=== PATIENT | male | born 1975 | race Caucasian/White ===

== ENCOUNTER 2017-09-11 17:41 | Emergency (ER) | payer OTHER ==
[2017-09-11 17:56] VITALS: TEMP 98.9; BMI 26.4
--- NOTE | 2017-09-11 18:10 | PDOC ---
History of Present Illness - General Chief Complaint: Pain, Acute Stated Complaint: PAIN, ACUTE History Source: Patient Exam Limitations: No Limitations - History of Present Illness Initial Comments: 09/11/17 18:27 HPI: This 42-year-old male presents to the emergency room with complaints of bilateral back pain. He states that he's having these similar feelings of when he had a kidney stone about a month ago in the [place]. About a month ago he had had bloody urine and went to one of the hospitals in the [place] where he was found to have a kidney stone which he passed on his own. He was taking Flomax for a while. He did not follow-up with the urologist. He did not require any surgical intervention. He denies any fever. He does state that he does have some sinusitis and an upper respiratory infection the last 2 days. Denies any nausea, vomiting, abdominal pain, dysuria. Chief Compliant: Lower back pain PMH: Kidney stone passed on her own about one month ago, asthma, seizure related to EtOH use, bipolar FH: Pt has not recently traveled outside the country in the last 30 days. Pt has not been in contact with people who have traveled out of the country, in contact with people who have been ill with fever, n, v, d. SH: smoking use: Positive current every day smoker illicit drug use: Reformed from cocaine, marijuana, opiates, heroin in 2013 alcohol use: Deformed from daily abuse of alcohol in 2013 employment/educational status: sexual history: PSH: Tonsillectomy when a child Home med use noted on AUG Allergies: NKA Immunizations: PCP: Does not have one Past History - Past Medical History Allergies/Adverse Reactions: Allergies Allergy/AdvReac Type Severity Reaction Status Date / Time No Known Allergies Allergy Verified 09/11/17 17:52 Home Medications: Ambulatory Orders Albuterol Sulfate Inhaler - [Ventolin HFA Inhaler -] 2 inh PO Q6H PRN 12/29/13 Quetiapine Fumarate [Seroquel -] 200 mg PO BID 12/29/13 Zolpidem Tartrate [Ambien -] 10 mg PO HS 12/29/13 Quetiapine Fumarate [Seroquel -] 200 mg PO BID #60 tablet 12/30/13 Zolpidem Tartrate [Ambien] 10 mg PO HS PRN #30 tablet 12/30/13 Anemia: No Asthma: Yes (albuterol) Cancer: No Cardiac Disorders: No CVA: No COPD: No CHF: No Dementia: No Diabetes: No GI Disorders: No Disorders: No HTN: No Hypercholesterolemia: No Kidney Stones: Yes Liver Disease: No Seizures: Yes (approx 1yr ago alcohol related seizure) Thyroid Disease: No - Surgical History Abdominal Surgery: No Appendectomy: No Cardiac Surgery: No Cholecystectomy: No Lung Surgery: No Neurologic Surgery: No Orthopedic Surgery: No - Reproductive History Testicular Surgery: No - Suicide/Smoking/Psychosocial Hx Smoking Status: Yes Smoking History: Current every day smoker Have you smoked in the past 12 months: Yes Number of Cigarettes Smoked Daily: 15 Cigars Per Day: 0 Information on smoking cessation initiated: No 'Breaking Loose' booklet given: 12/29/13 Hx Alcohol Use: Yes (ashlee) Drug/Substance Use Hx: Yes (cocaine/heroin) Substance Use Type: Alcohol, Cocaine, Heroin, Marijuana, Opiates Hx Substance Use Treatment: Yes ([facility] 2013) Review of Systems - Review of Systems Able to Perform ROS?: Yes Comments:: 09/11/17 18:30 General statement: Complaining of lower back pain Hematology: neg history of bleeding/blood thinners Skin: Neg for lesions, rash, bruising. HEENT: Complaining of nasal congestion, postnasal drip, cough Respiratory: Neg SOB or difficulty in breathing Cardiac: Neg chest pain GI: Neg pain, n/v : Neg problems on voiding and denies any hematuria however states his lower back pain similar to his kidney stones in the past MS: Neg for joint pain/stiffness, no edema Neuro: Neg for LOC, weakness, Endocrine: Neg for excess thirst/hunger, cold/heat intolerance, excess sweating Allergies: Neg for allergies 09/11/17 18:32 *Physical Exam - Vital Signs Last Vital Signs Temp Pulse Resp BP Pulse Ox 98.9 F 86 19 129/73 98 09/11/17 17:52 09/11/17 17:52 09/11/17 17:52 09/11/17 17:52 09/11/17 17:52 - Physical Exam Comments: 09/11/17 18:31 General Appearance: This 42-year-old male who is complaining of a upper respiratory infection as well as lower back pain and more concerning for his lower back pain at this time. He is now here with his significant other for evaluation V/S: hemodynamically stable, afebrile Skin: WNL of pt's skin color, no signs of pallor, mottling, cyanosis Head:symmetrical with positive complaint of sinus pressure Eyes: EOM's intact, PERRLA Ears: denies pain Nose: Positive turbinates that are swollen Throat: lips, teeth, gums, tongue, buccal mucos pink and moist Lungs: Chest symmetry equal. Cap refill <3 seconds. Lung sounds clear Cardiac: PMI at R 4MCL space, pos S1 and S2, regular rate. Abdomen: Soft, round, nontender : Not observed however he is mildly complaining of CV tenderness on palpation Muscularskeletal: Gait steady, ambulated in to ER, no edema +PMS Neuro: AAOx3, cognitively intact, speech clear and appropriate. Medical Decision Making - Medical Decision Making 09/11/17 18:32 Patient initially seen and examined. Patient is stating that he is here because he's had some lower back pain and he feels that this may be possibly a kidney stone. He was seen about one month ago in the [place] where he had passed a stone after being diagnosed with a kidney stone. He does not have any follow-up. He is also complaining of cold symptoms as well. Plan -Spiral CT -IV fluids -Toradol -Lab work -UA/C&S Upon discussion with the patient for a plan I explained he will need to have a follow-up for her urologist. I am signing this patient out to my colleague: Tonny Garcia SPECIMEN ACCESSIONER In brief, this patient is being seen in the ED for a chief complaint of: Rule out renal colic I have completed the initial assessment interview note and have ordered: Noted above Once CT is completely and lab work is back can reassess and probably discharge home. *DC/Admit/Observation/Transfer Diagnosis at time of Disposition: Renal colic - Referrals - Patient Instructions - Post Discharge Activity
[2017-09-11] MEDS ORDERED: SODIUM CHLORIDE 1,000 ML IV STA (18:26)
[2017-09-11] MEDS ORDERED: KETOROLAC TROMETHAMINE 30 MG/1 ML VIAL IVPUSH ONE (18:26)
[2017-09-11] MEDS ORDERED: KETOROLAC TROMETHAMINE 30 MG/1 ML VIAL ONE (18:43)
[2017-09-11 19:03] LABS: HEMATOCRIT 45.2 % (35.4-49); HEMOGLOBIN 15.6 GM/dL (11.7-16.9); MCH 32.8 pg (25.7-33.7); MCHC 34.4 g/dl (32.0-35.9); MEAN CELL VOLUME 95.1 fl (80-96); MEAN PLT VOLUME 8.9 fl (7.5-11.1); PLATELET COUNT 180 K/MM3 (134-434); RBC 4.75 M/mm3 (4.00-5.60); RDW 13.7 % (11.9-15.9); WHITE BLOOD COUNT 3.9 K/mm3 (4.0-10.0)
[2017-09-11 19:05] LABS: URINE APPEARANCE CLEAR; URINE BILIRUBIN NEGATIVE (<2.0 mg/dL); URINE BLOOD NEGATIVE (NEGATIVE); URINE COLOR YELLOW; URINE GLUCOSE (UA) NEGATIVE (NEGATIVE); URINE KETONE TRACE (NEGATIVE); URINE LEUK ESTERASE NEGATIVE (NEGATIVE); URINE NITRITE NEGATIVE (NEGATIVE); URINE PROTEIN NEGATIVE (NEGATIVE)
--- NOTE | 2017-09-11 19:18 | PDOC ---
*Physical Exam - Vital Signs Last Vital Signs Temp Pulse Resp BP Pulse Ox 98.9 F 86 19 129/73 98 09/11/17 17:52 09/11/17 17:52 09/11/17 17:52 09/11/17 17:52 09/11/17 17:52 ED Treatment Course - LABORATORY CBC & Chemistry Diagram: 09/11/17 18:49 09/11/17 18:49 - ADDITIONAL ORDERS Additional order review: Laboratory Results 09/11/17 18:49 Urine Color Yellow Urine Appearance Clear Urine pH 7.0 D Ur Specific [place] 1.025 Urine Protein Negative Urine Glucose (UA) Negative Urine Ketones Trace H Urine Blood Negative Urine Nitrite Negative Urine Bilirubin Negative Urine Urobilinogen 2.0 Ur Leukocyte Esterase Negative 09/11/17 18:49 RBC 4.75 MCV 95.1 MCHC 34.4 RDW 13.7 MPV 8.9 D Neutrophils % 51.1 Lymphocytes % 26.0 Monocytes % 21.5 H Eosinophils % 0.4 Basophils % 1.0 - Medications Given in the ED: ED Medications Discontinued Medications Generic Name Dose Route Start Last Admin Trade Name Freq PRN Reason Stop Dose Admin Ketorolac Tromethamine 30 mg 09/11/17 18:26 09/11/17 18:54 Toradol Injection - IVPUSH 09/11/17 18:27 30 mg ONCE ONE Administration Medical Decision Making - Medical Decision Making 09/11/17 20:31 patient reports nasal congestion and b/l lower back/ flank pain. history of kidney stones. CT results pending. will give tylenol and claritin *DC/Admit/Observation/Transfer Diagnosis at time of Disposition: Renal colic, Viral syndrome - Discharge Dispostion Disposition: HOME - Prescriptions Prescriptions: Ibuprofen [Motrin -] 600 mg PO QID PRN #14 tablet PRN Reason: Moderate Pain Loratadine [Claritin] 10 mg PO DAILY #20 tablet - Referrals Referrals: Daisy Dan MD [Primary Care Provider] - - Patient Instructions Printed Discharge Instructions: DI for Viral Syndrome Additional Instructions: drink plenty of fluids. take ibuprofen every 6 hours as needed for bodyaches. follow up with your doctor as soon as possible. - Post Discharge Activity
[2017-09-11 19:33] LABS: ANION GAP 7 (8-16); BLOOD UREA NITROGEN 14 mg/dL (7-18); CHLORIDE 101 mmol/L (98-107); CO2 30 mmol/L (21-32); CREATININE 0.9 mg/dL (0.7-1.3); GLUCOSE,RANDOM 81 mg/dL (74-106); SGPT/ALT 24 U/L (12-78); SODIUM 138 mmol/L (136-145)
[2017-09-11 19:46] LABS: ALK PHOS 84 U/L (45-117); BILIRUBIN,TOTAL 0.3 mg/dL (0.2-1.0); SGOT/AST 18 U/L (15-37); TOT PROT 7.5 g/dl (6.4-8.2)
[2017-09-11 20:01] LABS: PLATELET ESTIMATE ADEQUATE
[2017-09-11] MEDS ORDERED: LORATADINE 10 MG TABLET PO ONE (20:32)
[2017-09-11] MEDS ORDERED: ACETAMINOPHEN 325 MG TABLET (FP) PO ONE (20:32)
[2017-09-11] MEDS ORDERED: LORATADINE 10 MG TABLET ONE (20:39)
[2017-09-11] MEDS ORDERED: ACETAMINOPHEN 325 MG TABLET (FP) ONE (20:39)
[2017-09-11 20:51] VITALS: BP 126/79; PULSE 78
== END 2017-09-11 21:41 | disposition home or self-care (01) ==
LOC: JER 17:41
PROC: 3E0333Z Introduction of Anti-inflammatory into Peripheral Vein, Percutaneous Approach (ICD-10-PCS; principal; 2017-09-11)
PROC: 3E0337Z Introduction of Electrolytic and Water Balance Substance into Peripheral Vein, Percutaneous Approach (ICD-10-PCS; 2017-09-11)
DX: N23 Unspecified renal colic (principal); F17.210 Nicotine dependence, cigarettes, uncomplicated
CPT/HCPCS: 36415; 74176; 80053; 81003; 85025; 87086; 99283-25; J7030

== ENCOUNTER 2017-10-31 11:08 | Inpatient (IN) | payer OTHER ==
[2017-10-31 11:32] VITALS: BMI 23.7
--- NOTE | 2017-10-31 14:55 | HP ---
COWS - Scale Resting Pulse: 0= [place] 80 or Below Sweatin= Chills/Flushing Restless Observation: 1= Difficult to Sit Still Pupil Size: 0= Normal to Room Light Bone or Joint Aches: 2= Severe Diffuse Aches Runny Nose/ Eye Tearin= Nasal Congestion GI Upset > 30mins: 2= Nausea/Diarrhea Tremor Observation: 2= Slight Tremor Visible Yawning Observation: 2= >3x During Session Anxiety or Irritability: 2=Irritable/Anxious Goose Flesh Skin: 0=Smooth Skin COWS Score: 13 CIWA Score - CIWA Score Nausea/Vomitin-Mild Nausea/No Vomiting Muscle Tremors: 4-Moderate,w/Arms Extend Anxiety: 4-Mod. Anxious/Guarded Agitation: 4-Moderately Restless Paroxysmal Sweats: 1-Minimal Palms Moist Orientation: 0-Oriented Tacttile Disturbances: 1-Very Mild Itch/Numbness Auditory Disturbances: 0-None Visual Disturbances: 0-None Headache: 1-Very Mild CIWA-Ar Total Score: 16 Admission ROS S - HPI Chief Complaint: ALCOHOL OPIATE WITHDRAWAL SX Allergies/Adverse Reactions: Allergies Allergy/AdvReac Type Severity Reaction Status Date / Time No Known Allergies Allergy Verified 10/31/17 14:52 History of Present Illness: 42 YEARS OLD MALE WITH LONG HISTORY OF ALCOHOL OPIATE NICOTINE DEPENDENCE HAS BIPOLAR II IS ADMITTED TO DETOX Exam Limitations: No Limitations - Ebola screening Have you traveled outside of the country in the last 21 days: No Have you had contact with anyone from an Ebola affected area: No Have you been sick,other than usual withdrawal symptoms: No Do you have a fever: No - Review of Systems Constitutional: Loss of Appetite, Changes in sleep, Unintentional Wgt. Loss, Unexplained wgt Loss EENT: reports: Blurred Vision (EYE GLASSES AT HOME) Respiratory: reports: No Symptoms reported Cardiac: reports: No Symptoms Reported GI: reports: Nausea, Poor Appetite, Poor Fluid Intake, Abdominal cramping : reports: No Symptoms Reported Musculoskeletal: reports: Back Pain, Joint Pain, Muscle Pain, Neck Pain Integumentary: reports: No Symptoms Reported Neuro: reports: Tremors Endocrine: reports: No Symptoms Reported Hematology: reports: No Symptoms Reported Psychiatric: reports: Judgement Intact, Orientated x3, Anxious, Depressed Other Systems: Reviewed and Negative Patient History - Patient Medical History Hx Anemia: No Hx Asthma: Yes (albuterol) Hx Chronic Obstructive Pulmonary Disease (COPD): No Hx Cancer: No Hx Cardiac Disorders: No Hx Congestive Heart Failure: No Hx Hypertension: No Hx Hypercholesterolemia: No Hx Pacemaker: No HX Cerebrovascular Accident: No Hx Seizures: No Hx Dementia: No Hx Diabetes: No Hx Gastrointestinal Disorders: No Hx Liver Disease: No Hx Genitourinary Disorders: No Hx Sexually Transmitted Disorders: No Hx Renal Disease (ESRD): No Hx Thyroid Disease: No Hx Human Immunodeficiency Virus (HIV): No (NEGATIVE 2 MONTHS AGO) Hx Hepatitis C: No Hx Depression: No Hx Suicide Attempt: No (denies) Hx Bipolar Disorder: Yes (seroquel 200mg BID/ ambien 10mg) Hx Schizophrenia: No - Patient Surgical History Past Surgical History: Yes Hx Neurologic Surgery: No Hx Cataract Extraction: No Hx Cardiac Surgery: No Hx Lung Surgery: No Hx Breast Surgery: No Hx Breast Biopsy: No Hx Abdominal Surgery: No Hx Appendectomy: No Hx Cholecystectomy: No Hx Genitourinary Surgery: No Hx Orthopedic Surgery: No Other Surgical History: tonsillectomy at age of 79 years old Anesthesia Reaction: No - PPD History Previous Implant?: Yes Documented Results: Negative w/o proof Date: 12/31/13 Results: 0MM - Smoking Cessation Smoking history: Current every day smoker Have you smoked in the past 12 months: Yes Aproximately how many cigarettes per day: 15 Cigars Per Day: 0 Hx Chewing Tobacco Use: No Initiated information on smoking cessation: Yes 'Breaking Loose' booklet given: 10/31/17 - Substance & Tx. History Hx Alcohol Use: Yes Hx Substance Use: Yes Substance Use Type: Alcohol, Opiates Hx Substance Use Treatment: Yes (2013 [facility]) Family Disease History - Family Disease History Family Disease History: Respiratory: Father (alcohol/), Other: Father Admission Physical Exam BHS - Vital Signs Vital Signs: Vital Signs - 24 hr 10/31/17 11:30 Temperature 96.4 F L Pulse Rate 73 Respiratory 20 Rate Blood Pressure 141/75 - Physical General Appearance: Yes: Appropriately Dressed, Mild Distress, Thin, Tremorous, Irritable, Sweating, Anxious HEENTM: Yes: Hearing grossly Normal, Normocephalic, Normal Voice Respiratory: Yes: Chest Non-Tender, Lungs Clear, Normal Breath Sounds, No Respiratory Distress, No Accessory Muscle Use Neck: Yes: Supple, Trachea in good position Breast: Yes: Breasts Symetrical, No Discharge Cardiology: Yes: Regular Rhythm, Regular Rate, S1, S2 Abdominal: Yes: Normal Bowel Sounds, Non Tender, Flat Genitourinary: Yes: Within Normal Limits Back: Yes: Normal Inspection Musculoskeletal: Yes: full range of Motion, Gait Steady, Back pain, Muscle Pain Extremities: Yes: Normal Inspection, Normal Range of Motion, Non-Tender, Tremors Neurological: Yes: Fully Oriented, Alert, Motor Strength 5/5, Normal Response, Depressed Affect Integumentary: Yes: Warm, Other (OCCIPITAL RASHES) Lymphatic: Yes: Within Normal Limits - Diagnostic (1) Nicotine dependence Current Visit: Yes Status: Acute Qualifiers: Nicotine product type: cigarettes Substance use status: in withdrawal Qualified Code(s): F17.213 - Nicotine dependence, cigarettes, with withdrawal (2) Weight loss Current Visit: Yes Status: Acute (3) Alcohol dependence Current Visit: Yes Status: Active (4) Asthma Current Visit: Yes Status: Chronic (5) Bipolar disorder Current Visit: Yes Status: Suspected Cleared for Admission [facility] - Detox or Rehab [facility] Level of Care: Medically Managed Detox Regimen/Protocol: Methadone/Librium [facility] Breath Alcohol Content Breath Alcohol Content: 0 Urine Drug Screen - Control Is Test Valid: Yes - Results Drug Screen Negative: No Urine Drug Screen Results: THC-Marijuana, OPI-Opiates
[2017-10-31] MEDS ORDERED: MAG HYDROX/AL HYDROX/SIMETH 30 ML UNIT-DOSE CUP PO PRN (15:10)
[2017-10-31] MEDS ORDERED: LOPERAMIDE HCL 2 MG CAPSULE PO PRN (15:10)
[2017-10-31] MEDS ORDERED: guaiFENesin/D-METHORPHAN HB 10 ML UNIT-DOSE CUPS PO PRN (15:10)
[2017-10-31] MEDS ORDERED: IBUPROFEN 400 MG TABLET (FP) PO PRN (15:10)
[2017-10-31] MEDS ORDERED: NICOTINE POLACRILEX 4 MG GUM BC PRN (15:10)
[2017-10-31] MEDS ORDERED: MAGNESIUM CITRATE 300 ML BOTTLE PO PRN (15:10)
[2017-10-31] MEDS ORDERED: P-EPHED 60MG/TRIPROLIDI 2.5MG TABLET PO PRN (15:10)
[2017-10-31] MEDS ORDERED: ACETAMINOPHEN 325 MG TABLET (FP) PO PRN (15:10)
[2017-10-31] MEDS ORDERED: MAGNESIUM HYDROX 2400MG/30ML ORAL SUSPENSION 30 ML CUP PO PRN (15:10)
[2017-10-31] MEDS ORDERED: MENTHOL/PHENOL 1 EACH UD MM PRN (15:10)
[2017-10-31] MEDS ORDERED: ALBUTEROL SO4 18 GM HFA INHALER IH PRN (15:14)
[2017-10-31] MEDS ORDERED: METHADONE HCL 10 MG TABLET (FOR DETOX USE ONLY) PO ONE ×2 (16:30→23:00)
[2017-10-31] MEDS: NICOTINE 21 MG/24 HOURS TOPICAL PATCH TD SCH (17:47)
[2017-10-31] MEDS: chlordiazePOXIDE HCL 25 MG CAPSULE PO SCH ×2 (17:48→22:21)
[2017-10-31] MEDS: BACLOFEN 10 MG TABLET (FP) PO SCH ×2 (17:48→22:20)
[2017-10-31] MEDS ORDERED: MELATONIN 5 MG TABLETS PO PRN (22:00)
[2017-10-31] MEDS: CLOTRIMAZOLE 1% CREAM 15 GM TUBE TP SCH (22:19)
[2017-10-31] MEDS: THIAMINE HCL 100 MG TABLET (FP) PO SCH (22:21)
[2017-10-31 22:40] LABS: URINE APPEARANCE TURBID; URINE BILIRUBIN NEGATIVE (<2.0 mg/dL); URINE COLOR YELLOW; URINE GLUCOSE (UA) NEGATIVE (NEGATIVE); URINE KETONE NEGATIVE (NEGATIVE); URINE LEUK ESTERASE NEGATIVE (NEGATIVE); URINE NITRITE NEGATIVE (NEGATIVE); URINE PROTEIN NEGATIVE (NEGATIVE)
[2017-10-31 22:51] LABS: URINE BACTERIA MODERATE /hpf (NONE SEEN); URINE MUCUS RARE
[2017-11-01] MEDS: BACLOFEN 10 MG TABLET (FP) PO SCH ×3 (05:50→22:21)
[2017-11-01] MEDS: chlordiazePOXIDE HCL 25 MG CAPSULE PO SCH ×4 (05:51→22:21)
[2017-11-01] MEDS ORDERED: METHADONE HCL 10 MG TABLET (FOR DETOX USE ONLY) PO SCH (10:00)
[2017-11-01 10:06] LABS: HEMATOCRIT 45.6 % (35.4-49); HEMOGLOBIN 15.1 GM/dL (11.7-16.9); MCH 31.6 pg (25.7-33.7); MCHC 33.2 g/dl (32.0-35.9); MEAN CELL VOLUME 95.1 fl (80-96); MEAN PLT VOLUME 10.1 fl (7.5-11.1); PLATELET COUNT 211 K/MM3 (134-434); RBC 4.79 M/mm3 (4.00-5.60); RDW 13.3 % (11.9-15.9)
[2017-11-01 10:23] LABS: CHLORIDE 106 mmol/L (98-107); POTASSIUM 4.3 mmol/L (3.5-5.1); SODIUM 141 mmol/L (136-145)
[2017-11-01] MEDS: NICOTINE 21 MG/24 HOURS TOPICAL PATCH TD SCH (10:47)
[2017-11-01] MEDS: PRENATAL VITAMINS W/ FOLIC ACID TABLET (FP) PO SCH (10:47)
[2017-11-01] MEDS: CLOTRIMAZOLE 1% CREAM 15 GM TUBE TP SCH ×2 (10:47→22:22)
[2017-11-01 10:53] LABS: ALBUMIN 4.2 g/dl (3.4-5.0); ALK PHOS 81 U/L (45-117); ANION GAP 6 (8-16); BLOOD UREA NITROGEN 17 mg/dL (7-18); CALCIUM 8.8 mg/dL (8.5-10.1); CO2 29 mmol/L (21-32); CREATININE 0.9 mg/dL (0.7-1.3); GLUCOSE,RANDOM 104 mg/dL (74-106); SGOT/AST 17 U/L (15-37); SGPT/ALT 22 U/L (12-78); TOT PROT 7.4 g/dl (6.4-8.2)
--- NOTE | 2017-11-01 11:29 | EKG ---
Test Reason : Blood Pressure : / mmHG Vent. Rate : 061 BPM Atrial Rate : 061 BPM P-R Int : 142 ms QRS Dur : 102 ms QT Int : 420 ms P-R-T Axes : 078 079 072 degrees QTc Int : 422 ms SINUS RHYTHM WITH MARKED SINUS ARRHYTHMIA NON-SPECIFIC INTRA-VENTRICULAR CONDUCTION DELAY WHEN COMPARED WITH ECG OF 26-FEB-2012 10:10, NO SIGNIFICANT CHANGE WAS FOUND Confirmed by RAZIA RIVERA MD ([id number]) on 11/01/2017 11:29:11 AM Referred By: Confirmed By:RAZIA RIVERA MD
[2017-11-01] MEDS: chlordiazePOXIDE HCL 25 MG CAPSULE PO PRN (13:30)
--- NOTE | 2017-11-01 14:05 | CONSULT ---
[facility] Psychiatric Consult - Data Date of interview: 11/01/17 Admission source: [facility] Identifying data: Readmission to [facility] for this 42 y/o male seeking detox treatment on for heroin and cannabis dependence.Patient is single,a father of four,domiciled,unemployed and currently supported on personal savings. Substance Abuse History: Confirmed by patient in this interview.Smoking history : Current every day smoker. Have you smoked in the past 12 months: Yes. Aproximately how many cigarettes per day: 15. Cigars Per Day: 0. Hx Chewing Tobacco Use: No. Initiated information on smoking cessation: Yes. 'Breaking Loose' booklet given: 10/31/17. - Substance & Tx. History. Hx Alcohol Use: Yes. Hx Substance Use: Yes. Substance Use Type: Alcohol, Opiates. Hx Substance Use Treatment: Yes (2013 [facility]) Medical History: Bronchial asthma,kidney stones,withdrawal-related seizures and a distant history of tonsillectomy. Psychiatric History: Early onset of psychiatric disturbances (age [age]) .Diagnosed with ADHD.History of one psychiatric hospitalization (2005) at [facility].Rediagnosed with Bipolar Disorder.Patient used to be prescribed seroquel and zolpidem.Lost to follow up since 2014.Off psychotropic medications.Mr Gonzales denies history of suicide attempts. Physical/Sexual Abuse/Trauma History: Patient denies. Additional Comment: Urine Drug Screen Results: THC-Marijuana, OPI-Opiates.Noted. Mental Status Exam - Mental Status Exam Alert and Oriented to: Time, Place, Person Cognitive Function: Good Patient Appearance: Well Groomed Mood: Hopeful, Euthymic Affect: Appropriate, Normal Range Patient Behavior: Appropriate, Cooperative Speech Pattern: Clear Voice Loudness: Normal Thought Process: Intact, Goal Oriented Thought Disorder: Not Present Hallucinations: Denies Suicidal Ideation: Denies Homicidal Ideation: Denies Insight/Judgement: Poor Sleep: Well Appetite: Good Muscle strength/Tone: Normal Gait/Station: Normal Psychiatric Findings - Problem List ([place] 1, 2,3) (1) Opioid dependence Current Visit: Yes Status: Active (2) Alcohol dependence Current Visit: Yes Status: Active (3) Marihuana dependence Current Visit: Yes Status: Acute (4) Nicotine dependence Current Visit: Yes Status: Chronic Qualifiers: Nicotine product type: cigarettes Substance use status: in withdrawal Qualified Code(s): F17.213 - Nicotine dependence, cigarettes, with withdrawal (5) Bipolar disorder Current Visit: Yes Status: Chronic Comment: per records and self- report.Asymptomatic.Off medications. - Initial Treatment Plan Initial Treatment Plan: Psychoeducation.Detoxification.Observation.
--- NOTE | 2017-11-01 17:19 | PN ---
[facility] CIWA - CIWA Score Nausea/Vomitin-No Nausea/No Vomiting Muscle Tremors: None Anxiety: 4-Mod. Anxious/Guarded Agitation: 4-Moderately Restless Paroxysmal Sweats: No Perspiration Orientation: 0-Oriented Tacttile Disturbances: 3-Moderate Itch/Numb/Burn Auditory Disturbances: 2-Mild Harshness/Frighten Visual Disturbances: 2-Mild Sensitivity Headache: 0-None Present CIWA-Ar Total Score: 15 BHS COWS - Scale Resting Pulse: 1= [place] 81-100 Sweatin= Chills/Flushing Restless Observation: 1= Difficult to Sit Still Pupil Size: 0= Normal to Room Light Bone or Joint Aches: 2= Severe Diffuse Aches Runny Nose/ Eye Tearin= Runny Nose/Eyes GI Upset > 30mins: 0= None Tremor Observation of Outstretched Hands: 0= None Yawning Observation: 1= 1-2x During Session Anxiety or Irritability: 2=Irritable/Anxious Goose Flesh Skin: 3=Piloerection COWS Score: 13 S Progress Note (SOAP) Subjective: Anxious, Tremors, Sweating. Objective: PATIENT A & O X 3, OBSERVED AMBULATING ON UNIT. NO ACUTE DISTRESS. 11/01/17 17:18 Vital Signs Temperature 97.3 F L 11/01/17 14:17 Pulse Rate 89 11/01/17 14:17 Respiratory Rate 20 11/01/17 14:17 Blood Pressure 104/56 11/01/17 14:17 O2 Sat by Pulse Oximetry (%) Laboratory Tests 10/31/17 10/31/17 11/01/17 15:21 22:30 05:50 WBC 5.0 RBC 4.79 Hgb 15.1 Hct 45.6 MCV 95.1 MCH 31.6 MCHC 33.2 RDW 13.3 Plt Count 211 MPV 10.1 D Sodium Potassium Chloride Carbon Dioxide Anion Gap BUN Creatinine Creat Clearance w eGFR Random Glucose Calcium Total Bilirubin AST ALT Alkaline Phosphatase Total Protein Albumin Urine Color Yellow Urine Appearance Turbid Urine pH 5.0 D Ur Specific [place] 1.026 Urine Protein Negative Urine Glucose (UA) Negative Urine Ketones Negative Urine Blood 1+ H Urine Nitrite Negative Urine Bilirubin Negative Urine Urobilinogen 2.0 Ur Leukocyte Esterase Negative Urine WBC (Auto) 11 Urine RBC (Auto) 2 Urine Bacteria Moderate Urine Mucus Rare RPR Titer HIV 1&2 Antibody Screen Negative HIV P24 Antigen Negative 11/01/17 11/01/17 05:50 05:50 WBC RBC Hgb Hct MCV MCH MCHC RDW Plt Count MPV Sodium 141 Potassium 4.3 Chloride 106 Carbon Dioxide 29 Anion Gap 6 L BUN 17 D Creatinine 0.9 Creat Clearance w eGFR > 60 Random Glucose 104 D Calcium 8.8 Total Bilirubin 1.0 D AST 17 ALT 22 Alkaline Phosphatase 81 Total Protein 7.4 Albumin 4.2 Urine Color Urine Appearance Urine pH Ur Specific [place] Urine Protein Urine Glucose (UA) Urine Ketones Urine Blood Urine Nitrite Urine Bilirubin Urine Urobilinogen Ur Leukocyte Esterase Urine WBC (Auto) Urine RBC (Auto) Urine Bacteria Urine Mucus RPR Titer Nonreactive HIV 1&2 Antibody Screen HIV P24 Antigen LABS NOTED. Assessment: 11/01/17 17:18 WITHDRAWAL SYMPTOMS. Plan: CONTINUE DETOX. INCREASE DAILY PO FLUID INTAKE.
[2017-11-01] MEDS: THIAMINE HCL 100 MG TABLET (FP) PO SCH (22:21)
[2017-11-02] MEDS: chlordiazePOXIDE HCL 25 MG CAPSULE PO SCH ×2 (06:13→10:08)
[2017-11-02] MEDS: BACLOFEN 10 MG TABLET (FP) PO SCH ×3 (06:58→22:40)
[2017-11-02] MEDS: chlordiazePOXIDE HCL 25 MG CAPSULE PO PRN ×3 (06:58→19:38)
[2017-11-02] MEDS: NICOTINE 21 MG/24 HOURS TOPICAL PATCH TD SCH (10:06)
[2017-11-02] MEDS: PRENATAL VITAMINS W/ FOLIC ACID TABLET (FP) PO SCH (10:06)
[2017-11-02] MEDS: METHADONE HCL 5 MG TABLET (FOR DETOX USE ONLY) PO SCH (10:06)
[2017-11-02] MEDS: CLOTRIMAZOLE 1% CREAM 15 GM TUBE TP SCH ×2 (12:28→22:40)
--- NOTE | 2017-11-02 16:48 | PN ---
S CIWA - CIWA Score Nausea/Vomitin-No Nausea/No Vomiting Muscle Tremors: 3 Anxiety: 4-Mod. Anxious/Guarded Agitation: 3 Paroxysmal Sweats: 3 Orientation: 0-Oriented Tacttile Disturbances: 2-Mild Itch/Numbness/Burn Auditory Disturbances: 1-Very Mild Visual Disturbances: 0-None Headache: 0-None Present CIWA-Ar Total Score: 16 BHS COWS - Scale Resting Pulse: 0= [place] 80 or Below Sweatin= Chills/Flushing Restless Observation: 1= Difficult to Sit Still Pupil Size: 0= Normal to Room Light Bone or Joint Aches: 0= None Runny Nose/ Eye Tearin= None GI Upset > 30mins: 0= None Tremor Observation of Outstretched Hands: 2= Slight Tremor Visible Yawning Observation: 2= >3x During Session Anxiety or Irritability: 2=Irritable/Anxious Goose Flesh Skin: 3=Piloerection COWS Score: 11 S Progress Note (SOAP) Subjective: Anxious, Tremors, Sweating. Objective: PATIENT A & O X 3, OBSERVED AMBULATING ON UNIT. NO ACUTE DISTRESS. 11/02/17 16:50 Vital Signs Temperature 97.6 F 11/02/17 09:15 Pulse Rate 63 11/02/17 09:15 Respiratory Rate 18 11/02/17 09:15 Blood Pressure 120/71 11/02/17 09:15 O2 Sat by Pulse Oximetry (%) Laboratory Tests 10/31/17 10/31/17 11/01/17 15:21 22:30 05:50 WBC 5.0 RBC 4.79 Hgb 15.1 Hct 45.6 MCV 95.1 MCH 31.6 MCHC 33.2 RDW 13.3 Plt Count 211 MPV 10.1 D Sodium Potassium Chloride Carbon Dioxide Anion Gap BUN Creatinine Creat Clearance w eGFR Random Glucose Calcium Total Bilirubin AST ALT Alkaline Phosphatase Total Protein Albumin Urine Color Yellow Urine Appearance Turbid Urine pH 5.0 D Ur Specific [place] 1.026 Urine Protein Negative Urine Glucose (UA) Negative Urine Ketones Negative Urine Blood 1+ H Urine Nitrite Negative Urine Bilirubin Negative Urine Urobilinogen 2.0 Ur Leukocyte Esterase Negative Urine WBC (Auto) 11 Urine RBC (Auto) 2 Urine Bacteria Moderate Urine Mucus Rare RPR Titer HIV 1&2 Antibody Screen Negative HIV P24 Antigen Negative 11/01/17 11/01/17 05:50 05:50 WBC RBC Hgb Hct MCV MCH MCHC RDW Plt Count MPV Sodium 141 Potassium 4.3 Chloride 106 Carbon Dioxide 29 Anion Gap 6 L BUN 17 D Creatinine 0.9 Creat Clearance w eGFR > 60 Random Glucose 104 D Calcium 8.8 Total Bilirubin 1.0 D AST 17 ALT 22 Alkaline Phosphatase 81 Total Protein 7.4 Albumin 4.2 Urine Color Urine Appearance Urine pH Ur Specific [place] Urine Protein Urine Glucose (UA) Urine Ketones Urine Blood Urine Nitrite Urine Bilirubin Urine Urobilinogen Ur Leukocyte Esterase Urine WBC (Auto) Urine RBC (Auto) Urine Bacteria Urine Mucus RPR Titer Nonreactive HIV 1&2 Antibody Screen HIV P24 Antigen LABS NOTED. Assessment: 11/02/17 16:50 WITHDRAWAL SYMPTOMS. Plan: CONTINUE DETOX.
[2017-11-02] MEDS: chlordiazePOXIDE 5 MG CAPSULE PO SCH ×2 (17:40→22:40)
[2017-11-02] MEDS: THIAMINE HCL 100 MG TABLET (FP) PO SCH (22:40)
[2017-11-03] MEDS: chlordiazePOXIDE HCL 25 MG CAPSULE PO PRN ×2 (00:29→14:43)
[2017-11-03] MEDS: chlordiazePOXIDE 5 MG CAPSULE PO SCH ×2 (06:02→10:13)
[2017-11-03] MEDS: BACLOFEN 10 MG TABLET (FP) PO SCH ×3 (06:02→22:40)
[2017-11-03] MEDS: CLOTRIMAZOLE 1% CREAM 15 GM TUBE TP SCH ×2 (10:13→22:39)
[2017-11-03] MEDS: METHADONE HCL 5 MG TABLET (FOR DETOX USE ONLY) PO SCH (10:13)
[2017-11-03] MEDS: PRENATAL VITAMINS W/ FOLIC ACID TABLET (FP) PO SCH (10:13)
[2017-11-03] MEDS: NICOTINE 21 MG/24 HOURS TOPICAL PATCH TD SCH (10:14)
[2017-11-03] MEDS: chlordiazePOXIDE HCL 10 MG CAPSULE PO SCH ×2 (17:05→22:40)
--- NOTE | 2017-11-03 17:55 | PN ---
[facility] Progress Note (SOAP) Subjective: Interrupted sleep, sweating Objective: 11/03/17 17:53 Last Vital Signs Temp Pulse Resp BP Pulse Ox 97.2 F L 69 18 100/56 11/03/17 10:04 11/03/17 10:04 11/03/17 10:04 11/03/17 10:04 Laboratory Tests 10/31/17 10/31/17 11/01/17 15:21 22:30 05:50 WBC 5.0 RBC 4.79 Hgb 15.1 Hct 45.6 MCV 95.1 MCH 31.6 MCHC 33.2 RDW 13.3 Plt Count 211 MPV 10.1 D Sodium Potassium Chloride Carbon Dioxide Anion Gap BUN Creatinine Creat Clearance w eGFR Random Glucose Calcium Total Bilirubin AST ALT Alkaline Phosphatase Total Protein Albumin Urine Color Yellow Urine Appearance Turbid Urine pH 5.0 D Ur Specific [place] 1.026 Urine Protein Negative Urine Glucose (UA) Negative Urine Ketones Negative Urine Blood 1+ H Urine Nitrite Negative Urine Bilirubin Negative Urine Urobilinogen 2.0 Ur Leukocyte Esterase Negative Urine WBC (Auto) 11 Urine RBC (Auto) 2 Urine Bacteria Moderate Urine Mucus Rare RPR Titer HIV 1&2 Antibody Screen Negative HIV P24 Antigen Negative 11/01/17 11/01/17 05:50 05:50 WBC RBC Hgb Hct MCV MCH MCHC RDW Plt Count MPV Sodium 141 Potassium 4.3 Chloride 106 Carbon Dioxide 29 Anion Gap 6 L BUN 17 D Creatinine 0.9 Creat Clearance w eGFR > 60 Random Glucose 104 D Calcium 8.8 Total Bilirubin 1.0 D AST 17 ALT 22 Alkaline Phosphatase 81 Total Protein 7.4 Albumin 4.2 Urine Color Urine Appearance Urine pH Ur Specific [place] Urine Protein Urine Glucose (UA) Urine Ketones Urine Blood Urine Nitrite Urine Bilirubin Urine Urobilinogen Ur Leukocyte Esterase Urine WBC (Auto) Urine RBC (Auto) Urine Bacteria Urine Mucus RPR Titer Nonreactive HIV 1&2 Antibody Screen HIV P24 Antigen Labs reviewed: abnormal UA Assessment: 11/03/17 17:54 Withdrawal symptoms Noted with abnormal UA Plan: Continue detox Abnormal UA: encouraged to drink more water, repeat UA
[2017-11-03] MEDS: THIAMINE HCL 100 MG TABLET (FP) PO SCH (22:39)
[2017-11-04] MEDS: chlordiazePOXIDE HCL 10 MG CAPSULE PO SCH ×2 (05:29→10:41)
[2017-11-04] MEDS: BACLOFEN 10 MG TABLET (FP) PO SCH ×3 (05:29→22:37)
[2017-11-04] MEDS ORDERED: NITROGLYCERIN SUBLINGUAL 1/150 0.4 MG TAB SL ONE (05:31)
--- NOTE | 2017-11-04 06:31 | PN ---
[facility] Progress Note Note: Patient complained of chest pain. V/S B/P 102/60, HR 56, RR18, T96.8EKG Vital Signs - 24 hr 11/03/17 11/03/17 11/03/17 10:04 19:28 22:43 Temperature 97.2 F L 96.4 F L 98.0 F Pulse Rate 69 95 H 57 L Respiratory 18 20 18 Rate Blood Pressure 100/56 133/72 112/69 11/04/17 11/04/17 11/04/17 00:30 03:30 03:31 Temperature 96.8 F L Pulse Rate 56 L Respiratory 18 18 18 Rate Blood Pressure 102/60 Laboratory Last Values WBC 5.0 K/mm3 (4.0-10.0) 11/01/17 05:50 RBC 4.79 M/mm3 (4.00-5.60) 11/01/17 05:50 Hgb 15.1 GM/dL (11.7-16.9) 11/01/17 05:50 Hct 45.6 % (35.4-49) 11/01/17 05:50 MCV 95.1 fl (80-96) 11/01/17 05:50 MCH 31.6 pg (25.7-33.7) 11/01/17 05:50 MCHC 33.2 g/dl (32.0-35.9) 11/01/17 05:50 RDW 13.3 % (11.9-15.9) 11/01/17 05:50 Plt Count 211 K/MM3 (134-434) 11/01/17 05:50 MPV 10.1 fl (7.5-11.1) D 11/01/17 05:50 Sodium 141 mmol/L (136-145) 11/01/17 05:50 Potassium 4.3 mmol/L (3.5-5.1) 11/01/17 05:50 Chloride 106 mmol/L (98-107) 11/01/17 05:50 Carbon Dioxide 29 mmol/L (21-32) 11/01/17 05:50 Anion Gap 6 (8-16) L 11/01/17 05:50 BUN 17 mg/dL (7-18) D 11/01/17 05:50 Creatinine 0.9 mg/dL (0.7-1.3) 11/01/17 05:50 Creat Clearance w eGFR > 60 (>60) 11/01/17 05:50 Random Glucose 104 mg/dL (74-106) D 11/01/17 05:50 Calcium 8.8 mg/dL (8.5-10.1) 11/01/17 05:50 Total Bilirubin 1.0 mg/dL (0.2-1.0) D 11/01/17 05:50 AST 17 U/L (15-37) 11/01/17 05:50 ALT 22 U/L (12-78) 11/01/17 05:50 Alkaline Phosphatase 81 U/L (45-117) 11/01/17 05:50 Total Protein 7.4 g/dl (6.4-8.2) 11/01/17 05:50 Albumin 4.2 g/dl (3.4-5.0) 11/01/17 05:50 Urine Color Yellow 10/31/17 22:30 Urine Appearance Turbid 10/31/17 22:30 Urine pH 5.0 (5.0-8.0) D 10/31/17 22:30 Ur Specific [place] 1.026 (1.001-1.035) 10/31/17 22:30 Urine Protein Negative (NEGATIVE) 10/31/17 22:30 Urine Glucose (UA) Negative (NEGATIVE) 10/31/17 22:30 Urine Ketones Negative (NEGATIVE) 10/31/17 22:30 Urine Blood 1+ (NEGATIVE) H 10/31/17 22:30 Urine Nitrite Negative (NEGATIVE) 10/31/17 22:30 Urine Bilirubin Negative (<2.0 mg/dL) 10/31/17 22:30 Urine Urobilinogen 2.0 mg/dL (0.2-1.0) 10/31/17 22:30 Ur Leukocyte Esterase Negative (NEGATIVE) 10/31/17 22:30 Urine WBC (Auto) 11 /hpf (3-5) 10/31/17 22:30 Urine RBC (Auto) 2 /hpf (0-3) 10/31/17 22:30 Urine Bacteria Moderate /hpf (NONE SEEN) 10/31/17 22:30 Urine Mucus Rare 10/31/17 22:30 RPR Titer Nonreactive (NONREACTIVE) 11/01/17 05:50 HIV 1&2 Antibody Screen Negative 10/31/17 15:21 HIV P24 Antigen Negative 10/31/17 15:21 Action: EKG - Cardiac enzymes Nitro 4mg sublingual
--- NOTE | 2017-11-04 08:48 | EKG ---
Test Reason : Blood Pressure : / mmHG Vent. Rate : 054 BPM Atrial Rate : 054 BPM P-R Int : 154 ms QRS Dur : 104 ms QT Int : 448 ms P-R-T Axes : 080 078 070 degrees QTc Int : 424 ms SINUS BRADYCARDIA WITH SINUS ARRHYTHMIA OTHERWISE NORMAL ECG WHEN COMPARED WITH ECG OF 31-OCT-2017 18:09, NO SIGNIFICANT CHANGE WAS FOUND Confirmed by GANESH PEGUERO, LÁZARO ([id number]) on 11/04/2017 8:48:34 AM Referred By: Confirmed By:LÁZARO ANDERSEN MD
[2017-11-04] MEDS ORDERED: METHADONE HCL 10 MG TABLET (FOR DETOX USE ONLY) PO SCH (10:00)
[2017-11-04 10:34] LABS: URINE APPEARANCE CLEAR; URINE BILIRUBIN NEGATIVE (<2.0 mg/dL); URINE COLOR LTYELLOW; URINE GLUCOSE (UA) NEGATIVE (NEGATIVE); URINE KETONE NEGATIVE (NEGATIVE); URINE LEUK ESTERASE NEGATIVE (NEGATIVE); URINE NITRITE NEGATIVE (NEGATIVE); URINE PROTEIN NEGATIVE (NEGATIVE); URINE UROBILINOGEN NEGATIVE mg/dL (0.2-1.0)
[2017-11-04] MEDS: CLOTRIMAZOLE 1% CREAM 15 GM TUBE TP SCH ×2 (10:41→22:36)
[2017-11-04] MEDS: PRENATAL VITAMINS W/ FOLIC ACID TABLET (FP) PO SCH (10:41)
[2017-11-04] MEDS: NICOTINE 21 MG/24 HOURS TOPICAL PATCH TD SCH (10:41)
--- NOTE | 2017-11-04 17:29 | PN ---
[facility] Progress Note Note: Psychiatry Attending's note : Approached by patient. Complaint : insomnia. Request : zolpidem at bedtime. Sleep hygiene discussed. Ambien 5 mg po hs prn. Risk of parasomnias : discussed with patient. Ordered.
--- NOTE | 2017-11-04 18:43 | PN ---
[facility] Progress Note (SOAP) Subjective: sleep disturbance sweats shakes chest pain has subsided Objective: 11/04/17 18:41 A & O x 3 Repeat EKG reviewed, shows NSR Pt denies chest pain, discomfort nor SOB, no symptom noted Vital Signs Temperature 97.1 F L 11/04/17 18:27 Pulse Rate 54 L 11/04/17 18:27 Respiratory Rate 19 11/04/17 18:27 Blood Pressure 120/63 11/04/17 18:27 O2 Sat by Pulse Oximetry (%) Assessment: 11/04/17 18:43 withdrawal sx Plan: continue detox
[2017-11-04] MEDS ORDERED: ZOLPIDEM TARTRATE 5 MG TABLET PO PRN (22:00)
[2017-11-04] MEDS: THIAMINE HCL 100 MG TABLET (FP) PO SCH (22:36)
[2017-11-05] MEDS: BACLOFEN 10 MG TABLET (FP) PO SCH ×2 (05:17→13:33)
[2017-11-05] MEDS ORDERED: METHADONE HCL 5 MG TABLET (FOR DETOX USE ONLY) PO SCH (06:00)
[2017-11-05 09:20] VITALS: BP 111/61; PULSE 73; TEMP 96.4
[2017-11-05] MEDS: PRENATAL VITAMINS W/ FOLIC ACID TABLET (FP) PO SCH (10:28)
[2017-11-05] MEDS: NICOTINE 21 MG/24 HOURS TOPICAL PATCH TD SCH (10:28)
[2017-11-05] MEDS: CLOTRIMAZOLE 1% CREAM 15 GM TUBE TP SCH (10:28)
--- NOTE | 2017-11-05 23:25 | PN ---
[facility] Progress Note (SOAP) Subjective: Patient denies current Detox symptoms and reports that he feels well overall. Objective: PATIENT A & O X 3, OBSERVED AMBULATING ON UNIT. NO ACUTE DISTRESS. 11/05/17 23:24 Vital Signs Temperature 96.4 F L 11/05/17 09:19 Pulse Rate 73 11/05/17 09:19 Respiratory Rate 18 11/05/17 09:19 Blood Pressure 111/61 11/05/17 09:19 O2 Sat by Pulse Oximetry (%) Laboratory Tests 10/31/17 10/31/17 11/01/17 15:21 22:30 05:50 WBC 5.0 RBC 4.79 Hgb 15.1 Hct 45.6 MCV 95.1 MCH 31.6 MCHC 33.2 RDW 13.3 Plt Count 211 MPV 10.1 D Sodium Potassium Chloride Carbon Dioxide Anion Gap BUN Creatinine Creat Clearance w eGFR Random Glucose Calcium Total Bilirubin AST ALT Alkaline Phosphatase Creatine Kinase Troponin I Total Protein Albumin Urine Color Yellow Urine Appearance Turbid Urine pH 5.0 D Ur Specific [place] 1.026 Urine Protein Negative Urine Glucose (UA) Negative Urine Ketones Negative Urine Blood 1+ H Urine Nitrite Negative Urine Bilirubin Negative Urine Urobilinogen 2.0 Ur Leukocyte Esterase Negative Urine WBC (Auto) 11 Urine RBC (Auto) 2 Urine Bacteria Moderate Urine Mucus Rare RPR Titer HIV 1&2 Antibody Screen Negative HIV P24 Antigen Negative 11/01/17 11/01/17 11/04/17 05:50 05:50 08:20 WBC RBC Hgb Hct MCV MCH MCHC RDW Plt Count MPV Sodium 141 Potassium 4.3 Chloride 106 Carbon Dioxide 29 Anion Gap 6 L BUN 17 D Creatinine 0.9 Creat Clearance w eGFR > 60 Random Glucose 104 D Calcium 8.8 Total Bilirubin 1.0 D AST 17 ALT 22 Alkaline Phosphatase 81 Creatine Kinase Troponin I Total Protein 7.4 Albumin 4.2 Urine Color Ltyellow Urine Appearance Clear Urine pH 6.0 Ur Specific [place] 1.017 Urine Protein Negative Urine Glucose (UA) Negative Urine Ketones Negative Urine Blood Negative Urine Nitrite Negative Urine Bilirubin Negative Urine Urobilinogen Negative Ur Leukocyte Esterase Negative Urine WBC (Auto) Urine RBC (Auto) Urine Bacteria Urine Mucus RPR Titer Nonreactive HIV 1&2 Antibody Screen HIV P24 Antigen 11/04/17 11/05/17 09:10 07:00 WBC RBC Hgb Hct MCV MCH MCHC RDW Plt Count MPV Sodium Potassium Chloride Carbon Dioxide Anion Gap BUN Creatinine Creat Clearance w eGFR Random Glucose Calcium Total Bilirubin AST ALT Alkaline Phosphatase Creatine Kinase 111 101 Troponin I < 0.02 Total Protein Albumin Urine Color Urine Appearance Urine pH Ur Specific [place] Urine Protein Urine Glucose (UA) Urine Ketones Urine Blood Urine Nitrite Urine Bilirubin Urine Urobilinogen Ur Leukocyte Esterase Urine WBC (Auto) Urine RBC (Auto) Urine Bacteria Urine Mucus RPR Titer HIV 1&2 Antibody Screen HIV P24 Antigen LABS NOTED. Assessment: 11/05/17 23:24 COMPLETION OF DETOX REGIMEN. Plan: PATIENT SCHEDULED FOR DISCHARGE FROM DETOX UNIT TODAY.
--- NOTE | 2017-11-05 23:31 | DS ---
[facility] Detox Discharge Summary Admission Date: 10/31/17 Discharge Date: 11/05/17 - History Present History: Alcohol Dependence, Cannabis Dependence, Opioid Dependence Additional Comments: PATIENT GOING TO [facility] ([place], [place] FOR AFTERCARE. PATIENT DISCHARGED FROM DETOX UNIT IN STABLE MEDICAL CONDITION. Pertinent Past History: Asthma, History of Bipolar Disorder, Nicotine Dependence, Weight Loss. - Physical Exam Results Vital Signs: Vital Signs Temperature 96.4 F L 11/05/17 09:19 Pulse Rate 73 11/05/17 09:19 Respiratory Rate 18 11/05/17 09:19 Blood Pressure 111/61 11/05/17 09:19 O2 Sat by Pulse Oximetry (%) Pertinent Admission Physical Exam Findings: WITHDRAWAL SYMPTOMS. Laboratory Tests 10/31/17 10/31/17 11/01/17 15:21 22:30 05:50 WBC 5.0 RBC 4.79 Hgb 15.1 Hct 45.6 MCV 95.1 MCH 31.6 MCHC 33.2 RDW 13.3 Plt Count 211 MPV 10.1 D Sodium Potassium Chloride Carbon Dioxide Anion Gap BUN Creatinine Creat Clearance w eGFR Random Glucose Calcium Total Bilirubin AST ALT Alkaline Phosphatase Creatine Kinase Troponin I Total Protein Albumin Urine Color Yellow Urine Appearance Turbid Urine pH 5.0 D Ur Specific [place] 1.026 Urine Protein Negative Urine Glucose (UA) Negative Urine Ketones Negative Urine Blood 1+ H Urine Nitrite Negative Urine Bilirubin Negative Urine Urobilinogen 2.0 Ur Leukocyte Esterase Negative Urine WBC (Auto) 11 Urine RBC (Auto) 2 Urine Bacteria Moderate Urine Mucus Rare RPR Titer HIV 1&2 Antibody Screen Negative HIV P24 Antigen Negative 11/01/17 11/01/17 11/04/17 05:50 05:50 08:20 WBC RBC Hgb Hct MCV MCH MCHC RDW Plt Count MPV Sodium 141 Potassium 4.3 Chloride 106 Carbon Dioxide 29 Anion Gap 6 L BUN 17 D Creatinine 0.9 Creat Clearance w eGFR > 60 Random Glucose 104 D Calcium 8.8 Total Bilirubin 1.0 D AST 17 ALT 22 Alkaline Phosphatase 81 Creatine Kinase Troponin I Total Protein 7.4 Albumin 4.2 Urine Color Ltyellow Urine Appearance Clear Urine pH 6.0 Ur Specific [place] 1.017 Urine Protein Negative Urine Glucose (UA) Negative Urine Ketones Negative Urine Blood Negative Urine Nitrite Negative Urine Bilirubin Negative Urine Urobilinogen Negative Ur Leukocyte Esterase Negative Urine WBC (Auto) Urine RBC (Auto) Urine Bacteria Urine Mucus RPR Titer Nonreactive HIV 1&2 Antibody Screen HIV P24 Antigen 11/04/17 11/05/17 09:10 07:00 WBC RBC Hgb Hct MCV MCH MCHC RDW Plt Count MPV Sodium Potassium Chloride Carbon Dioxide Anion Gap BUN Creatinine Creat Clearance w eGFR Random Glucose Calcium Total Bilirubin AST ALT Alkaline Phosphatase Creatine Kinase 111 101 Troponin I < 0.02 Total Protein Albumin Urine Color Urine Appearance Urine pH Ur Specific [place] Urine Protein Urine Glucose (UA) Urine Ketones Urine Blood Urine Nitrite Urine Bilirubin Urine Urobilinogen Ur Leukocyte Esterase Urine WBC (Auto) Urine RBC (Auto) Urine Bacteria Urine Mucus RPR Titer HIV 1&2 Antibody Screen HIV P24 Antigen LABS NOTED. - Treatment Hospital Course: Detox Protocol Followed, Detoxed Safely, Responded well, Discharged Condition Good Patient has Accepted a Rehab Referral to: PT GOING [facility] ([place], [place] - Medication Discharge Medications: Ambulatory Orders Albuterol Sulfate Inhaler - [Ventolin Hfa Inhaler -] 2 inh PO Q4H 10/31/17 - Diagnosis (1) Alcohol dependence with uncomplicated withdrawal Status: Acute (2) Nicotine dependence Status: Chronic Qualifiers: Nicotine product type: cigarettes Substance use status: in withdrawal Qualified Code(s): F17.213 - Nicotine dependence, cigarettes, with withdrawal (3) Weight loss Status: Acute (4) Asthma Status: Chronic (5) Bipolar disorder Status: Chronic (6) Uncomplicated opioid dependence Status: Acute (7) [place] dependence Status: Acute - AMA Did Patient Leave Against Medical Advice: No
== END 2017-11-05 14:15 | disposition home or self-care (01) | DRG 773 ==
LOC: YASAS 11:08 → Y3N 16:19
PROVIDERS: ADMIT Internal Medicine; ATTEND Internal Medicine
PROC: HZ2ZZZZ Detoxification Services for Substance Abuse Treatment (ICD-10-PCS; principal; 2017-10-31)
DX: F11.23 Opioid dependence with withdrawal (principal); F10.230 Alcohol dependence with withdrawal, uncomplicated; F12.20 Cannabis dependence, uncomplicated; F17.213 Nicotine dependence, cigarettes, with withdrawal; F31.81 Bipolar II disorder; J45.909 Unspecified asthma, uncomplicated; R63.4 Abnormal weight loss; Z68.23 Body mass index [BMI] 23.0-23.9, adult
CPT/HCPCS: 36415; 80053; 81003; 81015; 82550; 84484; 85027; 86593; 87389; 93005; 93010; J0475

== ENCOUNTER 2018-05-15 12:45 | Emergency (ER) | payer OTHER ==
[2018-05-15 13:05] VITALS: BP 100/53; PULSE 59; TEMP 97.8; BMI 27.8
[2018-05-15 13:18] LABS: URINE APPEARANCE CLEAR; URINE BILIRUBIN NEGATIVE (<2.0 mg/dL); URINE COLOR YELLOW; URINE GLUCOSE (UA) NEGATIVE (NEGATIVE); URINE KETONE NEGATIVE (NEGATIVE); URINE LEUK ESTERASE NEGATIVE (NEGATIVE); URINE NITRITE NEGATIVE (NEGATIVE); URINE PROTEIN NEGATIVE (NEGATIVE); URINE UROBILINOGEN NEGATIVE mg/dL (0.2-1.0)
[2018-05-15] MEDS ORDERED: SODIUM CHLORIDE 0.9% 500 ML INFUS.BAG IV ONE (13:23)
[2018-05-15 13:48] LABS: BASO % 0.7 % (0-2.0); EOS % 1.1 % (0-4.5); HEMATOCRIT 44.3 % (35.4-49); HEMOGLOBIN 14.8 GM/dL (11.7-16.9); LYMPH % 31.6 % (8-40); MCH 31.4 pg (25.7-33.7); MCHC 33.4 g/dl (32.0-35.9); MEAN CELL VOLUME 93.9 fl (80-96); MONO % 8.9 % (3.8-10.2); NEUT % 57.7 % (42.8-82.8); PLATELET COUNT 217 K/MM3 (134-434); RBC 4.72 M/mm3 (4.00-5.60); RDW 13.7 % (11.9-15.9); WHITE BLOOD COUNT 5.6 K/mm3 (4.0-10.0)
--- NOTE | 2018-05-15 13:50 | PDOC ---
History of Present Illness - General Chief Complaint: Pain Stated Complaint: NEAR SYNCOPE/SYNCOPE Time Seen by Provider: 05/15/18 13:11 History Source: Patient Exam Limitations: No Limitations - History of Present Illness Initial Comments: 43 yo M w a hx of IVDU - Heroine, now on methadone, incarceration is here after he fell down earlier today, hit his head on the concrete and passed out for around 30 seconds. He states he has head pain where he fell and came into the ED to figure out why he fell and hit his head. He endorses that he felt very lightheaded, weak and dizzy before he fell down. He did not have chest pain, palpitations, feel hot, or see floaters before he passed out. He says he has not been using any illicit drugs today. He states he has also been feeling quite short of breath for the past week. Denies taking any blood thinners. Denies hurting anything other than his head when he fell down. He also endorses dysuria and frequency. He denies recent fevers, chills, or infections. Denies chest pain, abdominal pain, leg pain, arm pain. Social Hx: Everyday smoker - 1 PPD, methadone, alcohol use. PCP: None Psh: Tonsillectomy at age 7 Allergies: NKA, NKDA Past History - Past Medical History Allergies/Adverse Reactions: Allergies Allergy/AdvReac Type Severity Reaction Status Date / Time No Known Allergies Allergy Verified 10/31/17 14:52 Home Medications: Ambulatory Orders Methadone [Dolophine -] 35 mg PO DAILY 05/15/18 Anemia: No Asthma: Yes (albuterol) Cancer: No Cardiac Disorders: No CVA: No COPD: No CHF: No Dementia: No Diabetes: No GI Disorders: No Disorders: Yes ("kidney stones") HTN: No Hypercholesterolemia: No Kidney Stones: Yes (passed out kidney stone in 08/2017) Liver Disease: No Seizures: No Thyroid Disease: No - Surgical History Abdominal Surgery: No Appendectomy: No Cardiac Surgery: No Cholecystectomy: No Lung Surgery: No Neurologic Surgery: No Orthopedic Surgery: No - Reproductive History Testicular Surgery: No - Suicide/Smoking/Psychosocial Hx Smoking Status: Yes Smoking History: Current every day smoker Have you smoked in the past 12 months: Yes Number of Cigarettes Smoked Daily: 15 Cigars Per Day: 0 Information on smoking cessation initiated: No 'Breaking Loose' booklet given: 10/31/17 Hx Alcohol Use: Yes Drug/Substance Use Hx: (Methadone prog) Substance Use Type: Alcohol, Opiates Hx Substance Use Treatment: Yes (2013 [facility]) Review of Systems - Review of Systems Comments:: CONSTITUTIONAL: Present: Fatigue Absent: fever, no chills EYES: Absent: visual changes ENT: Absent: ear pain, no sore throat CARDIOVASCULAR: Absent: chest pain, no palpitations RESPIRATORY: Present: SOB, cough GI: Absent: abdominal pain, no nausea, no vomiting, no constipation, no diarrhea GENITOURINARY: Absent: dysuria, no frequency, no hematuria MUSKULOSKELETAL: Absent: back pain, no arthralgia, no myalgia SKIN: Absent: rash NEURO: Present: headache *Physical Exam - Vital Signs Last Vital Signs Temp Pulse Resp BP Pulse Ox 97.8 F 59 L 18 100/53 L 98 05/15/18 12:53 05/15/18 12:53 05/15/18 12:53 05/15/18 12:53 05/15/18 12:53 - Physical Exam Comments: GENERAL: Well-appearing, well-nourished. Tired, and in mild distress due to head pain. HEENT: Normocephalic, atraumatic. PERRL, EOM intact. CARDIOVASCULAR: Normal S1, S2. Regular rate and rhythm. PULMONARY: Clear to auscultation bilaterally. ABDOMEN: Soft, non-distended, non-tender. EXTREMITIES: Normal ROM in all four extremities. No gross deformities. SKIN: Warm, dry. No rash NEUROLOGICAL: No focal neurological deficits. Moderate Sedation - Procedure Monitoring Vital Signs: Procedure Monitoring Vital Signs Temperature 97.8 F 05/15/18 12:53 Pulse Rate 59 L 05/15/18 12:53 Respiratory Rate 18 05/15/18 12:53 Blood Pressure 100/53 L 05/15/18 12:53 O2 Sat by Pulse Oximetry (%) 98 05/15/18 12:53 ED Treatment Course - LABORATORY CBC & Chemistry Diagram: 05/15/18 13:41 05/15/18 13:41 - ADDITIONAL ORDERS Additional order review: Laboratory Results 05/15/18 12:50 Urine Color Yellow Urine Appearance Clear Urine pH 5.0 Ur Specific [place] 1.018 Urine Protein Negative Urine Glucose (UA) Negative Urine Ketones Negative Urine Blood Negative Urine Nitrite Negative Urine Bilirubin Negative Urine Urobilinogen Negative Ur Leukocyte Esterase Negative 05/15/18 13:41 RBC 4.72 MCV 93.9 MCHC 33.4 RDW 13.7 MPV 8.0 D Neutrophils % 57.7 Lymphocytes % 31.6 Monocytes % 8.9 Eosinophils % 1.1 Basophils % 0.7 - RADIOLOGY Radiology Studies Ordered: Category Date Time Status HEAD CT WITHOUT CONTRAST [CT] Stat CT Scan 05/15/18 13:23 Ordered CHEST PA & LAT [RAD] Stat Radiology 05/15/18 13:23 Ordered - Medications Given in the ED: ED Medications Discontinued Medications Generic Name Dose Route Start Last Admin Trade Name Freq PRN Reason Stop Dose Admin Sodium Chloride 1,000 ml 05/15/18 13:23 05/15/18 13:33 Normal Saline - IV 05/15/18 13:24 1,000 ml ONCE ONE Administration Medical Decision Making - Medical Decision Making 43 yo M w a hx of IVDU - Heroine, now on methadone, incarceration is here after he fell down earlier today, hit his head on the concrete and passed out for around 30 seconds. DD includes but not limited to: Brain bleed, cva, stroke, ACS, arrhythmia, vasovagal syncope, dehydration, infection. Plan: Cbc, Cmp, trop, ekg, ua, drug screen, cxr, Head CT, IV hydration, acetaminophen, re-assess. Labs, CT, Xr all WNL. Patient feels better after a liter. Drug screen is positive for opiates, benzos, methadone, and THC. EKG was minimally bradycardic, normal QT, no brugada, no long QT, no wpw, no HOCM. Patient can be Per[place] out. Patient is well appearing. Will DC patient with cardiac follow up. *DC/Admit/Observation/Transfer Diagnosis at time of Disposition: Syncope and collapse - Discharge Dispostion Disposition: HOME Condition at time of disposition: Stable Decision to Admit order: No - Referrals Referrals: Harmeet Whitman MD [Staff Physician] - - Patient Instructions Printed Discharge Instructions: DI for Syncope in Adults (Fainting) Additional Instructions: You came into the ER because you passed out and fainted. We did a cat scan of your head which showed you did not have a bleed in your brain. We did and EKG which showed you did not have a heart attack It is very important to make sure to go and see a printer's devil to figure out why you passed out. We have attached the number of Dr. Whitman, a printer's devil for you to call and schedule an appointment. Please make sure to call his office in the next 3 days to schedule an appointment. Come back to the ER if your pain worsens, you start feeling nauseous, or have any other new or worsening concerns. Thank you for coming to [facility]. We hope you feel better soon! Print Language: ALBANIAN - Post Discharge Activity Forms/Work/School Notes: Back to Work
[2018-05-15 14:15] LABS: ALBUMIN 4.1 g/dl (3.4-5.0); ALK PHOS 94 U/L (45-117); ANION GAP 6 MMOL/L (8-16); BILIRUBIN,TOTAL 0.6 mg/dL (0.2-1); BLOOD UREA NITROGEN 16 mg/dL (7-18); CALCIUM 8.9 mg/dL (8.5-10.1); CHLORIDE 103 mmol/L (98-107); CO2 31 mmol/L (21-32); CREATININE 1.2 mg/dL (0.55-1.3); GLUCOSE,RANDOM 81 mg/dL (74-106); POTASSIUM 4.1 mmol/L (3.5-5.1); SGOT/AST 26 U/L (15-37); SGPT/ALT 32 U/L (13-61); SODIUM 140 mmol/L (136-145); TOT PROT 7.5 g/dl (6.4-8.2)
[2018-05-15 14:20] LABS: URINE AMPHETAMINES NEGATIVE ng/ml (CUTOFF=500); URINE BARBITURATES NEGATIVE ng/ml (CUTOFF=200)
[2018-05-15 14:21] LABS: COCAINE, UR NEGATIVE ng/ml (CUTOFF=300)
[2018-05-15 14:22] LABS: PHENCYCLIDINE,URINE NEGATIVE ng/ml (CUTOFF=25)
[2018-05-15 14:29] LABS: OPIATES, URI POSITIVE ng/ml (CUTOFF=300); URINE BENZODIAZEPINES POSITIVE ng/ml (CUTOFF=200)
[2018-05-15 14:30] LABS: METHADONE, UR POSITIVE ng/ml (CUTOFF=300)
--- NOTE | 2018-05-15 16:14 | PDOC ---
Attending Attestation - Resident Resident Name: KacielyPepeDelta - ED Attending Attestation I have performed the following: I have examined & evaluated the patient, The case was reviewed & discussed with the resident, I agree w/resident's findings & plan, Exceptions are as noted - HPI HPI: 05/15/18 16:03 The patient is a 43 year old male, with a significant PMH of IV drug abuse on methadone who presents to the emergency department s/p syncopal episode prior to arrival. Patient states he was walking, when he suddenly lost consciousness for approximately 30 seconds and returned to baseline shortly after. Patient reports he hit his head against the concrete but was wearing a ski cap. Denies any drug use today. Pt now has mild headache where he hit his head. Denies N/V. Patient is not on any blood thinners. Denies any recent travel. Denies any history of blood clots. Patient has no other complaints. The patient denies chest pain, palpitations, blurry vision, headache and dizziness. Denies fever, chills, nausea, vomit, diarrhea and constipation. Denies urinary frequency, urgency and hematuria. Allergies: NKA Past surgical history: None reported. Social history: No reported alcohol or drug use. Daily cigarette use. - Physicial Exam PE: 05/15/18 16:14 "GENERAL: Awake, alert, and fully oriented, in no acute distress. HEAD: No signs of trauma EYES: PERRLA, EOMI, sclera anicteric, conjunctiva clear ENT: Auricles normal inspection, hearing grossly normal, nares patent, oropharynx clear without exudates. Moist mucosa NECK: Nontender, no stepoffs, Normal ROM, supple, no lymphadenopathy, JVD, or masses LUNGS: Breath sounds equal, clear to auscultation bilaterally. No wheezes, and no crackles HEART: Regular rate and rhythm, normal S1 and S2, no murmurs, rubs or gallops ABDOMEN: Soft, nontender, normoactive bowel sounds. No guarding, no rebound. No masses EXTREMITIES: Normal range of motion, no edema. No clubbing or cyanosis. No cords, erythema, or tenderness NEUROLOGICAL: Cranial nerves II through XII intact. 5/5 strength and sensation in all extremities, Normal speech, normal gait, normal cerebellar function SKIN: Warm, Dry, normal turgor, no rashes or lesions noted. - Medical Decision Making 05/15/18 16:14 43 M with syncopal episode. EKG with NSR, no evidence of arrhythmia. Will check basic labs. Pt HD stable. Pt with no chest pain/SOB. No evidence of DVT. PERC score 0. - Labs - CT head - IVF 05/15/18 16:[address] head negative Pt reassessed - feels well with no complaints at this time. Will refer to cards for holter monitor Pt is well appearing, with normal vitals. Clinically stable for DC at this time. I discussed the physical exam findings, ancillary test results and final diagnoses with the patient. I answered all of the patient's questions. The patient was satisfied with the care received and felt comfortable with the discharge plan and treatment plan. The patient agrees to follow up with the primary care physician within 24-72 hours.
--- NOTE | 2018-05-16 11:47 | EKG ---
Test Reason : Blood Pressure : / mmHG Vent. Rate : 048 BPM Atrial Rate : 048 BPM P-R Int : 154 ms QRS Dur : 104 ms QT Int : 458 ms P-R-T Axes : 063 064 054 degrees QTc Int : 409 ms SINUS BRADYCARDIA CANNOT RULE OUT ANTERIOR INFARCT , AGE UNDETERMINED ABNORMAL ECG WHEN COMPARED WITH ECG OF 04-NOV-2017 03:37, NO SIGNIFICANT CHANGE WAS FOUND Confirmed by GUS PEGUERO, KAI ([id number]) on 05/16/2018 11:46:52 AM Referred By: Confirmed By:KAI WEBER MD
== END 2018-05-15 16:14 | disposition home or self-care (01) ==
LOC: JER 12:45
PROC: 3E0337Z Introduction of Electrolytic and Water Balance Substance into Peripheral Vein, Percutaneous Approach (ICD-10-PCS; principal; 2018-05-15)
DX: R55 Syncope and collapse (principal)
CPT/HCPCS: 36415; 70450-TC; 71046-TC-FY; 80053; 80307; 81003; 84484; 85025; 93005; 93010; 99283-25

== ENCOUNTER 2018-06-06 22:41 | Emergency (ER) | payer OTHER ==
[2018-06-06 23:29] VITALS: BMI 27.8
[2018-06-07] MEDS ORDERED: ONDANSETRON 4 MG/2 ML VIAL IVPUSH ONE (00:55)
[2018-06-07] MEDS ORDERED: SODIUM CHLORIDE 1,000 ML IV STA (00:55)
[2018-06-07] MEDS ORDERED: FAMOTIDINE 20 MG/50 ML IVPB 20 MG/50 ML MG IVPB ONE ×2 (00:57→01:25)
--- NOTE | 2018-06-07 01:06 | PDOC ---
Attending Attestation - Resident Resident Name: Shani Magana - ED Attending Attestation I have performed the following: I have examined & evaluated the patient, The case was reviewed & discussed with the resident, I agree w/resident's findings & plan, Exceptions are as noted - Physicial Exam PE: GENERAL: Awake, alert, and fully oriented, in no acute distress. Appears ill but nontoxic. HEAD: No signs of trauma EYES: PERRLA, EOMI, sclera anicteric, conjunctiva clear ENT: Auricles normal inspection, hearing grossly normal, nares patent, oropharynx clear without exudates. Dry mucosa NECK: Normal ROM, supple, no lymphadenopathy, JVD, or masses LUNGS: Breath sounds equal, clear to auscultation bilaterally. No wheezes, and no crackles HEART: Regular rate and rhythm, normal S1 and S2, no murmurs, rubs or gallops ABDOMEN: Soft, +epigastric and RUQ tenderness with guarding. +Hyperactive bowel sounds. No rebound. No masses EXTREMITIES: Normal range of motion, no edema. No clubbing or cyanosis. No cords, erythema, or tenderness NEUROLOGICAL: Cranial nerves II through XII grossly intact. Normal speech, normal gait SKIN: Warm, Dry, normal turgor, no rashes or lesions noted. - Medical Decision Making 06/07/18 01:16 Pt with multiple episodes of vomiting, appears dehydrated on exam. Noted to have RUQ/epigastric tenderness on exam. Labs sent, including lipase and CMP. Will obtain RUQ sono to further evaluate. If neg, likely CT a/p. 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 The patient describes the epigastric pain as constant, radiating to the back bilaterally, with no exacerbating or alleviating factors. The patient also endorses shortness of breath with exertion which he states began today prompting the ED visit today. The patient reports receiving a flu shot this year. The patient denies chest pain, palpitations, diaphoresis, headache and dizziness. Denies fever, chills, diarrhea and constipation. Denies dysuria, frequency, urgency and hematuria. Allergies: NKA Documentation prepared by Delta Pierson, acting as medical imaging technician for Ashley Ch MD. <Delta Pierson - Last Filed: 06/07/18 01:28>
--- NOTE | 2018-06-07 01:09 | PDOC ---
History of Present Illness - General Chief Complaint: Cold Symptoms Stated Complaint: STOMACH PAIN SOB Time Seen by Provider: 06/07/18 00:36 History Source: Patient Exam Limitations: No Limitations - History of Present Illness Initial Comments: 06/07/18 00:58 Patient is a 43 year old male with a PMHx of Drug abuse on Methadone, bipolar disorder, nephrolithiasis who presents today for midepigastric pain that started three days ago associated with nausea, vomiting, and cold like symptoms. Patient describes the abdominal pain as a constant, "squeezing" mid- epigastric pain radiating to the back bilaterally with no alleviating or exacerbating factors. Patient does report multiple episodes of nausea and nonbloody nonbilious vomiting but no diarrhea or constipation. Patient does report having a 30 pound loss this year when he had kidney stones. Patient denies any excessive alcohol use or change in diet Patient also reports having a productive cough with brown phlegm associated with runny nose and congestion that started the same time as the abdominal pain. Patient reports he started experiencing shortness of breath on exertion today, which prompted this hospital visit. Patient denies being around sick contacts. Patient reports having his flu shot this season. Otherwise, patient denies any diarrhea, constipation, chest pain, palpitations, fevers, chills, dysuria, hematuria, hematochezia, hematemesis, hemoptysis, loss of consciousness. 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 Lives with girlfriend Family Hx: Father- COPD and CAD Mother- Healthy Past History - Past Medical History Allergies/Adverse Reactions: Allergies Allergy/AdvReac Type Severity Reaction Status Date / Time No Known Allergies Allergy Verified 10/31/17 14:52 Home Medications: Ambulatory Orders Methadone [Dolophine -] 55 mg PO DAILY 05/15/18 Escitalopram Oxalate [Lexapro -] 10 mg PO DAILY 06/06/18 Quetiapine Fumarate [Seroquel] 100 tab PO DAILY 06/06/18 Albuterol Sulfate Inhaler - [Ventolin HFA Inhaler -] 1 - 2 inh PO QID 06/07/18 Pantoprazole Sodium [Protonix -] 20 mg PO DAILY #30 tablet.ec 06/07/18 Anemia: No Asthma: Yes (albuterol) Cancer: No Cardiac Disorders: No CVA: No COPD: No CHF: No Dementia: No Diabetes: No GI Disorders: No Disorders: Yes ("kidney stones") HTN: No Hypercholesterolemia: No Kidney Stones: Yes (passed out kidney stone in 08/2017) Liver Disease: No Seizures: No Thyroid Disease: No - Surgical History Abdominal Surgery: No Appendectomy: No Cardiac Surgery: No Cholecystectomy: No Lung Surgery: No Neurologic Surgery: No Orthopedic Surgery: No - Reproductive History Testicular Surgery: No - Immunization History Td Vaccination: Yes TDAP Vaccination: Yes Immunization Up to Date: Yes - Suicide/Smoking/Psychosocial Hx Smoking Status: Yes Smoking History: Current every day smoker Have you smoked in the past 12 months: Yes Number of Cigarettes Smoked Daily: 10 Cigars Per Day: 0 Information on smoking cessation initiated: No 'Breaking Loose' booklet given: 10/31/17 Hx Alcohol Use: No Drug/Substance Use Hx: No Substance Use Type: Alcohol, Opiates Hx Substance Use Treatment: Yes (2013 [facility]) Review of Systems - Review of Systems Constitutional: Yes: Diaphoresis. No: Chills, Fever HEENTM: Yes: Nose Congestion. No: Throat Pain, Throat Swelling, Difficulty Swallowing Respiratory: Yes: Cough, Shortness of Breath, SOB with Exertion, Productive cough. No: Wheezing, Hemoptysis Cardiac (ROS): No: Chest Pain, Edema, Lightheadedness, Palpitations, Syncope, Chest Tightness ABD/GI: Yes: Nausea, Poor Appetite, Vomiting, Other (ABdominal pain). No: Constipated, Diarrhea, Difficulty Swallowing, Rectal Bleeding : No: Burning, Dysuria, Discharge, Frequency, Flank Pain, Hematuria, Pain Musculoskeletal: No: Back Pain, Muscle Pain, Muscle Weakness Integumentary: No: Bruising, Erythema Neurological: No: Headache, Numbness, Seizure, Tingling, Tremors, Weakness, Dizziness Endocrine: No: Excessive Sweating, Flushing *Physical Exam - Vital Signs Last Vital Signs Temp Pulse Resp BP Pulse Ox 98.2 F 77 19 111/79 96 06/06/18 23:18 06/06/18 23:18 06/06/18 23:18 06/06/18 23:18 06/06/18 23:18 - Physical Exam General Appearance: Yes: Other (Awake, Alert, orientedx3, in moderate painful distress ) HEENT: positive: EOMI, HU, Normal ENT Inspection, Pharynx Normal, Nasal Congestion. negative: Tonsillar Exudate, Tonsillar Erythema, Sinus Tenderness Neck: positive: Supple. negative: Decreased range of motion, Stridor, Lymphadenopathy (R) Respiratory/Chest: positive: Lungs Clear, Normal Breath Sounds. negative: Respiratory Distress, Accessory Muscle Use, Crackles, Rales, Stridor, Wheezing Cardiovascular: positive: Regular Rhythm, Regular Rate, S1, S2. negative: Edema , JVD, Murmur Gastrointestinal/Abdominal: positive: Other (Soft, diffuse tenderness of abdomen on palpation, no rebound or guarding, normoactive bowel sounds ) Musculoskeletal: positive: Normal Inspection. negative: CVA Tenderness, CVA Tenderness (R), CVA Tenderness (L), Decreased Range of Motion Extremity: positive: Normal Capillary Refill, Normal Inspection, Normal Range of Motion. negative: Swelling, Calf Tenderness, Erythema, Inflammation Integumentary: positive: Normal Color, Dry, Warm. negative: Erythema, Jaundice Neurologic: positive: mold mover II-XII NML intact, Fully Oriented, Alert, Normal Mood/ Affect, Normal Response, Motor Strength 5/5 Moderate Sedation - Procedure Monitoring Vital Signs: Procedure Monitoring Vital Signs Temperature 98.2 F 06/06/18 23:18 Pulse Rate 77 06/06/18 23:18 Respiratory Rate 19 06/06/18 23:18 Blood Pressure 111/79 06/06/18 23:18 O2 Sat by Pulse Oximetry (%) 96 06/06/18 23:18 Heart Score/ECG Review - ECG Intrepretation Rhythm: Regular Rhythm - [place]: Normal - ST and T Early Repolarization: No Non Specific ST-T Wave changes: No Flattened T Waves: No Prolonged Q-T Interval: No - ECG Impressions Normal ECG: Yes Non-specific ST Elevation: No Ischemic Changes: No ED Treatment Course - LABORATORY CBC & Chemistry Diagram: 06/07/18 01:17 06/07/18 01:17 - RADIOLOGY Radiology Studies Ordered: Category Date Time Status CHEST X-RAY PORTABLE* [RAD] Stat Radiology 06/07/18 00:58 Ordered Medical Decision Making - Medical Decision Making 06/07/18 01:25 Patient is a 43 year old male who presents today for worsening abdominal pain and shortness of breath associated with nausea, vomiting, and a brown productive. Differential Diagnosis include but not limited to influenza, bronchitis, pneumonia, PNA, abdominal perforation, gastritis, inflammatory bowel disease, pancreatitis, biliary colic. -CBC, CMP, LIPASE, LACTIC -U/A -Influenza swab -U/S of RUQ -CT abdomen w/ contrast -Pepcid, Zofran, and IV fluids -Chest X-Ray 06/07/18 02:30 -Labs unremarkable -U/S revealed common bile duct measured 1.0 cm -Patient reports no episodes of vomiting -CT abdomen pending 06/07/18 04:31 -Patient refusing IV contrast and CT scan -Still complains of abdominal pain but is refusing medications and requesting to go home -U/S unremarkable and labs unremarkable. -Patient able to tolerate over two cups of water and has not had an episode of vomiting. Reports some relief of symptoms. -Will discharge and refer to GI *DC/Admit/Observation/Transfer Diagnosis at time of Disposition: Gastroenteritis - Discharge Dispostion Disposition: HOME Condition at time of disposition: Stable Decision to Admit order: No - Prescriptions Prescriptions: Pantoprazole Sodium [Protonix -] 20 mg PO DAILY #30 tablet.ec - Referrals Referrals: Loren Cody MD [Primary Care Provider] - Mallory Bowman DO [Staff Physician] - - Patient Instructions Additional Instructions: -Please follow up with a stomach specialist. Information for Dr. Bowman will be in your discharge packet -A prescription for a one month trial of Protonix was sent to your pharmacy. Please pick it up from your pharmacy -Follow up with your primary care physician with 2 weeks -If symptoms worsen, please return to the emergency department. - Post Discharge Activity
[2018-06-07] MEDS ORDERED: ONDANSETRON 4 MG/2 ML VIAL ONE (01:24)
[2018-06-07 01:31] LABS: BASO % 1.9 % (0-2.0); EOS % 0.8 % (0-4.5); HEMATOCRIT 41.5 % (35.4-49); HEMOGLOBIN 14.8 GM/dL (11.7-16.9); LYMPH % 38.6 % (8-40); MCH 33.3 pg (25.7-33.7); MCHC 35.6 g/dl (32.0-35.9); MEAN CELL VOLUME 93.7 fl (80-96); MEAN PLT VOLUME 9.1 fl (7.5-11.1); MONO % 8.7 % (3.8-10.2); PLATELET COUNT 206 K/MM3 (134-434); RBC 4.43 M/mm3 (4.00-5.60); RDW 13.5 % (11.9-15.9)
[2018-06-07 01:51] LABS: URINE APPEARANCE CLEAR; URINE BILIRUBIN NEGATIVE (<2.0 mg/dL); URINE COLOR YELLOW; URINE GLUCOSE (UA) NEGATIVE (NEGATIVE); URINE KETONE TRACE (NEGATIVE); URINE LEUK ESTERASE TRACE (NEGATIVE); URINE NITRITE NEGATIVE (NEGATIVE); URINE PROTEIN 1+ (NEGATIVE); URINE UROBILINOGEN 4.0 E.U/dl mg/dL (0.2-1.0)
[2018-06-07 01:54] LABS: EPI CELLS RARE /HPF (FEW); URINE HYALINE CAST 1 /lpf; URINE MUCUS RARE
[2018-06-07] MEDS ORDERED: SODIUM CHLORIDE 0.9% 500 ML INFUS.BAG IV ONE (02:04)
[2018-06-07 02:05] LABS: ALBUMIN 4.2 g/dl (3.4-5.0); ALK PHOS 88 U/L (45-117); ANION GAP 6 MMOL/L (8-16); BILIRUBIN,TOTAL 0.7 mg/dL (0.2-1); BLOOD UREA NITROGEN 22 mg/dL (7-18); CALCIUM 8.9 mg/dL (8.5-10.1); CHLORIDE 102 mmol/L (98-107); CO2 28 mmol/L (21-32); CREATININE 1.3 mg/dL (0.55-1.3); GLUCOSE,RANDOM 120 mg/dL (74-106); LIPASE 241 U/L (73-393); POTASSIUM 4.7 mmol/L (3.5-5.1); SGOT/AST 31 U/L (15-37); SGPT/ALT 22 U/L (13-61); SODIUM 135 mmol/L (136-145); TOT PROT 7.5 g/dl (6.4-8.2)
[2018-06-07] MEDS ORDERED: ACETAMINOPHEN 1000 MG/100 ML VIAL (NON FORMULARY) IVPB ONE (02:55)
--- NOTE | 2018-06-07 03:24 | PDOC ---
*Physical Exam - Vital Signs Last Vital Signs Temp Pulse Resp BP Pulse Ox 98.2 F 77 19 111/79 96 06/06/18 23:18 06/06/18 23:18 06/06/18 23:18 06/06/18 23:18 06/06/18 23:18 Heart Score/ECG Review - ECG Intrepretation Rhythm: Regular Rhythm - [place]: Normal - QRS Poor R Wave Progression: No Q Wave Present: No - ST and T Early Repolarization: No Non Specific ST-T Wave changes: No - ECG Impressions Normal ECG: Yes Non-specific ST Elevation: No Ischemic Changes: No Bradycardia: No Torsades jessie Pointes: No WPW: No ED Treatment Course - LABORATORY CBC & Chemistry Diagram: 06/07/18 01:17 06/07/18 01:17 - ADDITIONAL ORDERS Additional order review: Laboratory Results 06/07/18 06/07/18 06/07/18 01:37 01:17 01:17 Sodium 135 L Potassium 4.7 Chloride 102 Carbon Dioxide 28 Anion Gap 6 L BUN 22 H Creatinine 1.3 Creat Clearance w eGFR > 60 Random Glucose 120 H Lactic Acid 1.0 Calcium 8.9 Total Bilirubin 0.7 AST 31 ALT 22 Alkaline Phosphatase 88 Total Protein 7.5 Albumin 4.2 Lipase 241 Urine Color Yellow Urine Appearance Clear Urine pH 5.0 Ur Specific Rector 1.032 Urine Protein 1+ H Urine Glucose (UA) Negative Urine Ketones Trace H Urine Blood Negative Urine Nitrite Negative Urine Bilirubin Negative Urine Urobilinogen 4.0 e.u/dl Ur Leukocyte Esterase Trace Urine WBC (Auto) 3 Urine RBC (Auto) 8 Ur Epithelial Cells Rare Hyaline Casts 1 Urine Mucus Rare 06/07/18 01:17 RBC 4.43 MCV 93.7 MCHC 35.6 RDW 13.5 MPV 9.1 D Neutrophils % 50.0 Lymphocytes % 38.6 D Monocytes % 8.7 Eosinophils % 0.8 Basophils % 1.9 - Medications Given in the ED: ED Medications Discontinued Medications Generic Name Dose Route Start Last Admin Trade Name Freq PRN Reason Stop Dose Admin Sodium Chloride 1,000 mls @ 1,000 mls/hr 06/07/18 00:55 06/07/18 01:31 Normal Saline - IV 06/07/18 01:54 1,000 mls/hr ASDIR STA Administration Famotidine/Sodium Chloride 20 mg in 50 mls @ 100 mls/hr 06/07/18 00:57 01:31 Pepcid 20 Mg Premixed Ivpb - IVPB 06/07/18 01:26 100 mls/hr ONCE ONE Administration Ondansetron HCl 4 mg 06/07/18 00:55 06/07/18 01:34 Zofran Injection IVPUSH 06/07/18 00:56 Not Given ONCE ONE Medical Decision Making - Medical Decision Making 06/07/18 03:24 Patient Name: MONTRELL ROWELL THIS IS A PRELIMINARY REPORT FROM [facility] DATE OF SERVICE: 2018-06-07 01:40:42 IMAGES: 55 EXAM: Limited right upper quadrant abdominal sonogram. Clinical indication: Rule out cholelithiasis. Right upper quadrant abdominal pain. There are no prior studies available for comparison. Findings: The liver has an unremarkable size, shape and echotexture without sonographically detected focal abnormality. There is no intrahepatic biliary duct dilation dictation. There is normal antegrade portal venous flow. There is no ascites. The right kidney measures 10.9 x 5.3 x 4.6 cm in diameter. Within the midportion of the right kidney there is a 1.7 cm simple renal cortical cysts. There is no right-sided hydronephrosis or renal calculi. The gallbladder is within normal limits. The common bile duct measures 1.0 cm in diameter. The tail of the pancreas was poorly visualized due to overlying bowel gas. The remainder the pancreas is unremarkable, without sonographically detected focal abnormality. Impression: 1. Dilated common bile duct out of keeping with the patient's age. 2. Nonvisualization of the tail of pancreas due to overlying bowel gas. 3. Otherwise, unremarkable right upper quadrant abdominal sonogram. THIS DOCUMENT HAS BEEN ELECTRONICALLY SIGNED Pt is stable to go home. *DC/Admit/Observation/Transfer Diagnosis at time of Disposition: Gastroenteritis - Discharge Dispostion Disposition: HOME Condition at time of disposition: Stable - Prescriptions Prescriptions: Pantoprazole Sodium [Protonix -] 20 mg PO DAILY #30 tablet.ec - Referrals Referrals: Loren Cody MD [Primary Care Provider] - Mallory Bowman DO [Staff Physician] - - Patient Instructions Additional Instructions: -Please follow up with a stomach specialist. Information for Dr. Bowman will be in your discharge packet -A prescription for a one month trial of Protonix was sent to your pharmacy. Please pick it up from your pharmacy -Follow up with your primary care physician with 2 weeks -If symptoms worsen, please return to the emergency department. - Post Discharge Activity
[2018-06-07] MEDS ORDERED: ACETAMINOPHEN INJECTION 100 ML IVPB ONE (03:32)
[2018-06-07 05:01] VITALS: BP 140/78; PULSE 63; TEMP 97.8
--- NOTE | 2018-06-07 13:26 | EKG ---
Test Reason : Blood Pressure : / mmHG Vent. Rate : 062 BPM Atrial Rate : 062 BPM P-R Int : 156 ms QRS Dur : 104 ms QT Int : 430 ms P-R-T Axes : 068 067 062 degrees QTc Int : 436 ms NORMAL SINUS RHYTHM NORMAL ECG WHEN COMPARED WITH ECG OF 15-MAY-2018 13:37, NO SIGNIFICANT CHANGE WAS FOUND Confirmed by RAIMUNDO JONES MD ([id number]) on 06/07/2018 1:26:33 PM Referred By: Confirmed By:RAIMUNDO JONES MD
== END 2018-06-07 05:02 | disposition home or self-care (01) ==
LOC: JER 22:41
PROC: 3E0337Z Introduction of Electrolytic and Water Balance Substance into Peripheral Vein, Percutaneous Approach (ICD-10-PCS; principal; 2018-06-06)
PROC: 3E033GC Introduction of Other Therapeutic Substance into Peripheral Vein, Percutaneous Approach (ICD-10-PCS; 2018-06-06)
PROC: 3E033NZ Introduction of Analgesics, Hypnotics, Sedatives into Peripheral Vein, Percutaneous Approach (ICD-10-PCS; 2018-06-06)
DX: K52.9 Noninfective gastroenteritis and colitis, unspecified (principal); F31.9 Bipolar disorder, unspecified; F11.20 Opioid dependence, uncomplicated; Z87.442 Personal history of urinary calculi
CPT/HCPCS: 36415; 71045-TC-FY; 76705-TC; 80053; 81003; 81015; 83605; 83690; 85025; 87804; 93005; 93010; 99282-25; J0131; J7030

== ENCOUNTER 2018-06-24 08:40 | Inpatient (IN) | payer OTHER ==
[2018-06-24 09:04] VITALS: BMI 27.6
--- NOTE | 2018-06-24 11:15 | HP ---
CIWA Score Nausea/Vomitin Muscle Tremors: 2 Anxiety: 4-Mod. Anxious/Guarded Agitation: 1-Slight > Activity Paroxysmal Sweats: 2 Orientation: 2-Disoriented Date<2 days Tacttile Disturbances: 0-None Auditory Disturbances: 0-None Visual Disturbances: 0-None Headache: 4-Moderately Severe CIWA-Ar Total Score: 21 - Admission Criteria [facility] Guidelines: Admission for Medically Managed Detox: Requires at least one of the followin. CIWA greater than 12 2. Seizures within the past 24 hours 3. Delirium tremens within the past 24 hours 4. Hallucinations within the past 24 hours 5. Acute intervention needed for co occurring medical disorder 6. Acute intervention needed for co occurring psychiatric disorder 7. Severe withdrawal that cannot be handled at a lower level of care (continued vomiting, continued diarrhea, abnormal vital signs) requiring intravenous medication and/or fluids 8. Admission [facility] Allergies/Adverse Reactions: Allergies Allergy/AdvReac Type Severity Reaction Status Date / Time No Known Allergies Allergy Verified 06/24/18 10:29 History of Present Illness: patient here requesting detox from etoh use reports 1/5 henessy x 2 weeks , prior sobriety x 5 years while incarcerated for drug sale ( heroin ) , released May [id number] , on parole x 3 years , on [facility] since 3 months ago at this facility denies active heroin use . Total lifetime years incarcerated : 10 . Reports w/d seizure several years ago , first age of use 23 , had a seizure " many years ago " , starts drinking currently upon awakening , current symptoms as above . Heroin use : since age 27 until incarceration , relapse after d/ c, then went to [facility] , current dose 55 mg , prior 100 mg before incarceration same program . denies other illicits except K2 10/d , klonopin 2 /day x 2 weeks . tobacco : 1 ppd since age 21 cannabis : first age of use 15 , stopped when incarcerated . PMHX : asthma ( [place]/ [place] ) on Albuterol PSHx : tonsillectomy Psych : bipolar d/o meds : seroquel SHx : lives w/ uncle, unemployed , finances through assistance form family , aware of pt's presence in tx . Exam Limitations: No Limitations - Ebola screening Have you traveled outside of the country in the last 21 days: No Have you had contact with anyone from an Ebola affected area: No Have you been sick,other than usual withdrawal symptoms: No Do you have a fever: No - Review of Systems Constitutional: See HPI EENT: reports: Other (myopia , denies dysphagia) Respiratory: reports: Shortness of Breath Cardiac: reports: No Symptoms Reported GI: reports: See HPI : reports: No Symptoms Reported Musculoskeletal: reports: No Symptoms Reported, Other (left vth) Neuro: reports: No Symptoms reported Psychiatric: reports: Orientated x3, Anxious Patient History - Patient Medical History Hx Anemia: No Hx Asthma: Yes Hx Chronic Obstructive Pulmonary Disease (COPD): No Hx Cancer: No Hx Cardiac Disorders: No Hx Congestive Heart Failure: No Hx Hypertension: No Hx Hypercholesterolemia: No Hx Pacemaker: No HX Cerebrovascular Accident: No Hx Seizures: Yes (etoh related seizures last in 2004) Hx Dementia: No Hx Diabetes: No Hx Gastrointestinal Disorders: Yes (acid reflex) Hx Liver Disease: No Hx Genitourinary Disorders: No Hx Sexually Transmitted Disorders: No Hx Renal Disease (ESRD): No Hx Thyroid Disease: No Hx Human Immunodeficiency Virus (HIV): No (NEGATIVE 2 MONTHS AGO) Hx Hepatitis C: No Hx Depression: Yes Hx Suicide Attempt: No Hx Bipolar Disorder: Yes (seroquel 200mg BID/ ambien 10mg) Hx Schizophrenia: No - Patient Surgical History Past Surgical History: No Hx Neurologic Surgery: No Hx Cataract Extraction: No Hx Cardiac Surgery: No Hx Lung Surgery: No Hx Breast Surgery: No Hx Breast Biopsy: No Hx Abdominal Surgery: No Hx Appendectomy: No Hx Cholecystectomy: No Hx Genitourinary Surgery: No Hx Section: No Hx Orthopedic Surgery: No Other Surgical History: tonsillectomy at age of 79 years old Anesthesia Reaction: No - PPD History Previous Implant?: Yes Documented Results: Negative w/o proof Implanted On Prior [facility] Admission?: Yes Date: 11/02/17 Results: 0 mm - Smoking Cessation Smoking history: Current every day smoker Have you smoked in the past 12 months: Yes Aproximately how many cigarettes per day: 20 Cigars Per Day: 0 Hx Chewing Tobacco Use: No Initiated information on smoking cessation: No - Substances Abused Alcohol Route: Oral Frequency: Daily Amount used: fifth of cognac Age of first use: 23 Date of Last Use: 06/23/18 Benzodiazepine (Klonopin) Route: Oral Frequency: Daily Amount used: 4mg Age of first use: 43 Date of Last Use: 06/22/18 Family Disease History - Family Disease History Family Disease History: Respiratory: Father (alcohol/), Other: Father, Son (4 children A & W ) Admission Physical Exam [facility] - Vital Signs Vital Signs: Vital Signs - 24 hr 06/24/18 09:03 Temperature 97.5 F L Pulse Rate 71 Respiratory 16 Rate Blood Pressure 142/93 - Physical General Appearance: Yes: Disheveled, Mild Distress HEENTM: Yes: EOMI, Normocephalic, Normal Voice Respiratory: Yes: Chest Non-Tender, Lungs Clear, Normal Breath Sounds Neck: Yes: No masses,lesions,Nodules, Trachea in good position Breast: Yes: Breast Exam Deferred Cardiology: Yes: Regular Rhythm, Regular Rate, S1, S2 Abdominal: Yes: Normal Bowel Sounds, Soft Genitourinary: Yes: Within Normal Limits Back: Yes: Normal Inspection Musculoskeletal: Yes: full range of Motion, Gait Steady Extremities: Yes: Non-Tender, Tremors, Other (left vth PIP flexio deformity) Neurological: Yes: Fully Oriented, Alert, Motor Strength 5/5 Integumentary: Yes: Other (right index left 3rd index small excoriations) - Diagnostic (1) Opioid dependence on agonist therapy Current Visit: Yes Status: Chronic (2) Alcohol dependence with uncomplicated withdrawal Current Visit: No Status: Acute (3) Asthma Current Visit: No Status: Chronic (4) Nicotine dependence Current Visit: No Status: Chronic Qualifiers: Nicotine product type: cigarettes Substance use status: in withdrawal Qualified Code(s): F17.213 - Nicotine dependence, cigarettes, with withdrawal [facility] Breath Alcohol Content Breath Alcohol Content: 0 Urine Drug Screen - Results Drug Screen Negative: No Urine Drug Screen Results: MTD-Methadone
[2018-06-24] MEDS ORDERED: IBUPROFEN 400 MG TABLET (FP) PO PRN (11:25)
[2018-06-24] MEDS ORDERED: MAGNESIUM CITRATE 300 ML BOTTLE PO PRN (11:25)
[2018-06-24] MEDS ORDERED: MAG HYDROX/AL HYDROX/SIMETH 30 ML UNIT-DOSE CUP PO PRN (11:25)
[2018-06-24] MEDS ORDERED: NICOTINE POLACRILEX 2 MG GUM BUC PRN (11:25)
[2018-06-24] MEDS ORDERED: ACETAMINOPHEN 325 MG TABLET (FP) PO PRN (11:25)
[2018-06-24] MEDS ORDERED: guaiFENesin/D-METHORPHAN HB 10 ML UNIT-DOSE CUPS PO PRN (11:25)
[2018-06-24] MEDS ORDERED: P-EPHED 60MG/TRIPROLIDI 2.5MG TABLET PO PRN (11:25)
[2018-06-24] MEDS ORDERED: MENTHOL/PHENOL 1 EACH UD MM PRN (11:25)
[2018-06-24] MEDS ORDERED: MAGNESIUM HYDROX 2400MG/30ML ORAL SUSPENSION 30 ML CUP PO PRN (11:25)
[2018-06-24] MEDS ORDERED: ALBUTEROL SO4 8 GM HFA INHALER IH PRN (11:27)
[2018-06-24] MEDS ORDERED: NEOMYCIN/POLYMYXIN/BACITRACIN (TRIPLE ANTIBIOTIC) 28 GM OINTMENT TP PRN (11:30)
[2018-06-24] MEDS: diazePAM 5 MG TABLET PO SCH ×2 (13:02→22:04)
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
[2018-06-24] MEDS: diazePAM 5 MG TABLET PO PRN ×2 (15:14→18:12)
[2018-06-24] MEDS: CYCLOBENZAPRINE HCL 10 MG TABLET (FP) PO PRN ×2 (15:14→22:03)
[2018-06-24] MEDS ORDERED: MELATONIN 5 MG TABLETS PO PRN (22:00)
[2018-06-24] MEDS ORDERED: QUEtiapine FUMARATE 100 MG TABLET (FP) PO SCH (22:00)
[2018-06-24] MEDS: QUEtiapine FUMARATE 200 MG TABLET PO SCH (22:03)
[2018-06-24] MEDS: THIAMINE HCL 100 MG TABLET (FP) PO SCH (22:04)
[2018-06-25] MEDS: diazePAM 5 MG TABLET PO SCH ×3 (05:04→21:27)
[2018-06-25] MEDS ORDERED: METHADONE HCL 10 MG TABLET PO SCH (07:00)
[2018-06-25] MEDS ORDERED: METHADONE HCL 10 MG TABLET ONE (07:55)
[2018-06-25] MEDS ORDERED: METHADONE HCL 40 MG DISPERSABLE TABLET ONE (07:55)
[2018-06-25] MEDS ORDERED: METHADONE HCL 5 MG TABLET ONE (07:55)
[2018-06-25] MEDS: METHADONE 40 MG, METHADONE 10 MG, METHADONE 5 MG PO SCH (07:57)
[2018-06-25] MEDS: CYCLOBENZAPRINE HCL 10 MG TABLET (FP) PO PRN ×3 (07:59→21:27)
[2018-06-25] MEDS: diazePAM 5 MG TABLET PO PRN ×3 (07:59→17:02)
--- NOTE | 2018-06-25 09:58 | PN ---
S CIWA - CIWA Score Nausea/Vomitin-Mild Nausea/No Vomiting Muscle Tremors: 3 Anxiety: 3 Agitation: 3 Paroxysmal Sweats: 1-Minimal Palms Moist Orientation: 1-Uncertain about Date Tacttile Disturbances: 1-Very Mild Itch/Numbness Auditory Disturbances: 0-None Visual Disturbances: 0-None Headache: 2-Mild CIWA-Ar Total Score: 15 BHS Progress Note (SOAP) Subjective: patient requests more valium and wants to be prescribed valium after discharged from alcohol detox patient wishes to bring his life back that longest sobriety [facility] 4 [facility] teaching on negative consequences of benzo addiction "may I have two xanax" discuss craving and coping skills tremor sweating irritable restlessness Objective: 06/25/18 11:19 Vital Signs Temperature 98.1 F 06/25/18 09:06 Pulse Rate 84 06/25/18 09:06 Respiratory Rate 18 06/25/18 09:06 Blood Pressure 133/76 06/25/18 09:06 O2 Sat by Pulse Oximetry (%) Laboratory Last Values WBC 5.8 K/mm3 (4.0-10.0) 06/25/18 06:00 RBC 4.77 M/mm3 (4.00-5.60) 06/25/18 06:00 Hgb 16.0 GM/dL (11.7-16.9) 06/25/18 06:00 Hct 46.1 % (35.4-49) 06/25/18 06:00 MCV 96.7 fl (80-96) H 06/25/18 06:00 MCH 33.5 pg (25.7-33.7) 06/25/18 06:00 MCHC 34.6 g/dl (32.0-35.9) 06/25/18 06:00 RDW 13.2 % (11.9-15.9) 06/25/18 06:00 Plt Count 186 K/MM3 (134-434) 06/25/18 06:00 MPV 9.8 fl (7.5-11.1) 06/25/18 06:00 Sodium 139 mmol/L (136-145) 06/25/18 06:00 Potassium 4.1 mmol/L (3.5-5.1) 06/25/18 06:00 Chloride 103 mmol/L (98-107) 06/25/18 06:00 Carbon Dioxide 29 mmol/L (21-32) 06/25/18 06:00 Anion Gap 7 MMOL/L (8-16) L 06/25/18 06:00 BUN 16 mg/dL (7-18) 06/25/18 06:00 Creatinine 1.1 mg/dL (0.55-1.3) 06/25/18 06:00 Creat Clearance w eGFR > 60 (>60) 06/25/18 06:00 Random Glucose 108 mg/dL (74-106) H 06/25/18 06:00 Calcium 9.5 mg/dL (8.5-10.1) 06/25/18 06:00 Total Bilirubin 1.0 mg/dL (0.2-1) 06/25/18 06:00 AST 19 U/L (15-37) 06/25/18 06:00 ALT 21 U/L (13-61) 06/25/18 06:00 Alkaline Phosphatase 100 U/L (45-117) 06/25/18 06:00 Total Protein 8.3 g/dl (6.4-8.2) H 06/25/18 06:00 Albumin 4.7 g/dl (3.4-5.0) 06/25/18 06:00 HIV 1&2 Antibody Screen Negative 06/24/18 12:00 HIV P24 Antigen Negative 06/24/18 12:00 lab notefd Assessment: 06/25/18 11:20 withdrawal sx Plan: continue detox
[2018-06-25] MEDS: PRENATAL VITAMINS W/ FOLIC ACID TABLET (FP) PO SCH (10:16)
[2018-06-25 10:18] LABS: ALBUMIN 4.7 g/dl (3.4-5.0); ALK PHOS 100 U/L (45-117); ANION GAP 7 MMOL/L (8-16); BLOOD UREA NITROGEN 16 mg/dL (7-18); CALCIUM 9.5 mg/dL (8.5-10.1); CHLORIDE 103 mmol/L (98-107); CO2 29 mmol/L (21-32); CREATININE 1.1 mg/dL (0.55-1.3); GLUCOSE,RANDOM 108 mg/dL (74-106); POTASSIUM 4.1 mmol/L (3.5-5.1); SGOT/AST 19 U/L (15-37); SGPT/ALT 21 U/L (13-61); SODIUM 139 mmol/L (136-145); TOT PROT 8.3 g/dl (6.4-8.2)
[2018-06-25 10:27] LABS: HEMATOCRIT 46.1 % (35.4-49); MCH 33.5 pg (25.7-33.7); MCHC 34.6 g/dl (32.0-35.9); MEAN CELL VOLUME 96.7 fl (80-96); MEAN PLT VOLUME 9.8 fl (7.5-11.1); PLATELET COUNT 186 K/MM3 (134-434); RBC 4.77 M/mm3 (4.00-5.60); RDW 13.2 % (11.9-15.9); WHITE BLOOD COUNT 5.8 K/mm3 (4.0-10.0)
[2018-06-25] MEDS ORDERED: hydrOXYzine PAMOATE 50 MG CAPSULE (FP) PO ONE (10:30)
[2018-06-25] MEDS: THIAMINE HCL 100 MG TABLET (FP) PO SCH (21:27)
[2018-06-25] MEDS: QUEtiapine FUMARATE 200 MG TABLET PO SCH (21:27)
[2018-06-26] MEDS ORDERED: METHADONE HCL 10 MG TABLET ONE (04:35)
[2018-06-26] MEDS ORDERED: METHADONE HCL 40 MG DISPERSABLE TABLET ONE (04:35)
[2018-06-26] MEDS ORDERED: METHADONE HCL 5 MG TABLET ONE (04:36)
[2018-06-26] MEDS: METHADONE 40 MG, METHADONE 10 MG, METHADONE 5 MG PO SCH (05:13)
[2018-06-26] MEDS: diazePAM 5 MG TABLET PO PRN ×3 (05:15→18:04)
[2018-06-26] MEDS: CYCLOBENZAPRINE HCL 10 MG TABLET (FP) PO PRN ×3 (05:15→22:03)
[2018-06-26] MEDS: PRENATAL VITAMINS W/ FOLIC ACID TABLET (FP) PO SCH (10:11)
[2018-06-26] MEDS: diazePAM 5 MG TABLET PO SCH ×2 (10:12→22:02)
[2018-06-26] MEDS: ALBUTEROL SO4 2.5/IPRATROPIUM 0.5 INH SOL 3 ML VIAL.NEB. NEB PRN ×2 (12:09→21:42)
--- NOTE | 2018-06-26 14:58 | PN ---
S CIWA - CIWA Score Nausea/Vomitin-No Nausea/No Vomiting Muscle Tremors: None Anxiety: 0-No Anxiety, at Ease Agitation: 2 Paroxysmal Sweats: 3 Orientation: 0-Oriented Tacttile Disturbances: 2-Mild Itch/Numbness/Burn Auditory Disturbances: 0-None Visual Disturbances: 0-None Headache: 3-Moderate CIWA-Ar Total Score: 10 BHS Progress Note (SOAP) Subjective: H/A, Sweating, Body Aches, Stomach Cramping. Objective: PATIENT A & O X 3, OBSERVED AMBULATING ON UNIT. IN NO ACUTE DISTRESS. 06/26/18 15:02 Vital Signs Temperature 97.4 F L 06/26/18 14:00 Pulse Rate 70 06/26/18 14:00 Respiratory Rate 20 06/26/18 14:00 Blood Pressure 116/74 06/26/18 14:00 O2 Sat by Pulse Oximetry (%) Laboratory Tests 06/24/18 06/25/18 06/25/18 12:00 06:00 06:00 WBC 5.8 RBC 4.77 Hgb 16.0 Hct 46.1 MCV 96.7 H MCH 33.5 MCHC 34.6 RDW 13.2 Plt Count 186 MPV 9.8 Sodium 139 Potassium 4.1 Chloride 103 Carbon Dioxide 29 Anion Gap 7 L BUN 16 Creatinine 1.1 Creat Clearance w eGFR > 60 Random Glucose 108 H Calcium 9.5 Total Bilirubin 1.0 AST 19 ALT 21 Alkaline Phosphatase 100 Total Protein 8.3 H Albumin 4.7 RPR Titer HIV 1&2 Antibody Screen Negative HIV P24 Antigen Negative 06/25/18 06:00 WBC RBC Hgb Hct MCV MCH MCHC RDW Plt Count MPV Sodium Potassium Chloride Carbon Dioxide Anion Gap BUN Creatinine Creat Clearance w eGFR Random Glucose Calcium Total Bilirubin AST ALT Alkaline Phosphatase Total Protein Albumin RPR Titer Nonreactive HIV 1&2 Antibody Screen HIV P24 Antigen LABS NOTED. Assessment: 06/26/18 15:02 WITHDRAWAL SYMPTOMS. Plan: CONTINUE DETOX. PRN FLEXERIL FOR BODY ACHES / MUSCLE SPASMS.
[2018-06-26] MEDS: THIAMINE HCL 100 MG TABLET (FP) PO SCH (22:02)
[2018-06-26] MEDS: QUEtiapine FUMARATE 200 MG TABLET PO SCH (22:04)
[2018-06-27] MEDS ORDERED: METHADONE HCL 10 MG TABLET ONE (03:12)
[2018-06-27] MEDS ORDERED: METHADONE HCL 40 MG DISPERSABLE TABLET ONE (03:13)
[2018-06-27] MEDS ORDERED: METHADONE HCL 5 MG TABLET ONE (03:13)
[2018-06-27] MEDS: METHADONE 40 MG, METHADONE 10 MG, METHADONE 5 MG PO SCH (05:48)
[2018-06-27] MEDS: CYCLOBENZAPRINE HCL 10 MG TABLET (FP) PO PRN (05:49)
[2018-06-27] MEDS: diazePAM 5 MG TABLET PO PRN (05:50)
[2018-06-27] MEDS: ALBUTEROL SO4 2.5/IPRATROPIUM 0.5 INH SOL 3 ML VIAL.NEB. NEB PRN (09:56)
[2018-06-27] MEDS: PRENATAL VITAMINS W/ FOLIC ACID TABLET (FP) PO SCH (09:56)
[2018-06-27] MEDS ORDERED: diazePAM 5 MG TABLET PO SCH (10:00)
[2018-06-27 13:26] VITALS: BP 120/75; PULSE 95; TEMP 97.1
--- NOTE | 2018-06-27 18:23 | PN ---
S Progress Note (SOAP) Subjective: Patient Denies Any Current Withdrawal / Detox Symptoms and Reports That He Feels Well Overall. Objective: PATIENT A & O X 3, OBSERVED AMBULATING ON UNIT. IN NO ACUTE DISTRESS. 06/27/18 18:22 Vital Signs Temperature 97.1 F L 06/27/18 13:25 Pulse Rate 95 H 06/27/18 13:25 Respiratory Rate 18 06/27/18 13:25 Blood Pressure 120/75 06/27/18 13:25 O2 Sat by Pulse Oximetry (%) Laboratory Tests 06/24/18 06/25/18 06/25/18 12:00 06:00 06:00 WBC 5.8 RBC 4.77 Hgb 16.0 Hct 46.1 MCV 96.7 H MCH 33.5 MCHC 34.6 RDW 13.2 Plt Count 186 MPV 9.8 Sodium 139 Potassium 4.1 Chloride 103 Carbon Dioxide 29 Anion Gap 7 L BUN 16 Creatinine 1.1 Creat Clearance w eGFR > 60 Random Glucose 108 H Calcium 9.5 Total Bilirubin 1.0 AST 19 ALT 21 Alkaline Phosphatase 100 Total Protein 8.3 H Albumin 4.7 RPR Titer HIV 1&2 Antibody Screen Negative HIV P24 Antigen Negative 06/25/18 06:00 WBC RBC Hgb Hct MCV MCH MCHC RDW Plt Count MPV Sodium Potassium Chloride Carbon Dioxide Anion Gap BUN Creatinine Creat Clearance w eGFR Random Glucose Calcium Total Bilirubin AST ALT Alkaline Phosphatase Total Protein Albumin RPR Titer Nonreactive HIV 1&2 Antibody Screen HIV P24 Antigen LABS NOTED. Assessment: 06/27/18 18:23 COMPLETION OF DETOX REGIMEN. 06/27/18 18:23 Plan: PATIENT SCHEDULED FOR DISCHARGE FROM DETOX UNIT TODAY.
--- NOTE | 2018-06-27 18:28 | DS ---
[facility] Detox Discharge Summary Admission Date: 06/24/18 Discharge Date: 06/27/18 - History Present History: Alcohol Dependence, Opioid Dependence, Sedative Dependence, MMTP Additional Comments: PATIENT GOING TO ATTEND [facility] OUTPATIENT SUBSTANCE USE TREATMENT PROGRAM ( [place]) AND WILL RETURN TO [facility] M.M.T[facility] PROGRAM ([place], [place]) FOR AFTERCARE. PATIENT WAS DISCHARGED FROM DETOX UNIT IN STABLE MEDICAL CONDITION. Pertinent Past History: Nicotine Dependence, G.E.RVanD., Bipolar Disorder, Depression, M.M.T.P., Asthma, History of (Alcohol-Related) Seizures, Tim. - Physical Exam Results Vital Signs: Vital Signs Temperature 97.1 F L 06/27/18 13:25 Pulse Rate 95 H 06/27/18 13:25 Respiratory Rate 18 06/27/18 13:25 Blood Pressure 120/75 06/27/18 13:25 O2 Sat by Pulse Oximetry (%) Pertinent Admission Physical Exam Findings: WITHDRAWAL SYMPTOMS. Laboratory Tests 06/24/18 06/25/18 06/25/18 12:00 06:00 06:00 WBC 5.8 RBC 4.77 Hgb 16.0 Hct 46.1 MCV 96.7 H MCH 33.5 MCHC 34.6 RDW 13.2 Plt Count 186 MPV 9.8 Sodium 139 Potassium 4.1 Chloride 103 Carbon Dioxide 29 Anion Gap 7 L BUN 16 Creatinine 1.1 Creat Clearance w eGFR > 60 Random Glucose 108 H Calcium 9.5 Total Bilirubin 1.0 AST 19 ALT 21 Alkaline Phosphatase 100 Total Protein 8.3 H Albumin 4.7 RPR Titer HIV 1&2 Antibody Screen Negative HIV P24 Antigen Negative 06/25/18 06:00 WBC RBC Hgb Hct MCV MCH MCHC RDW Plt Count MPV Sodium Potassium Chloride Carbon Dioxide Anion Gap BUN Creatinine Creat Clearance w eGFR Random Glucose Calcium Total Bilirubin AST ALT Alkaline Phosphatase Total Protein Albumin RPR Titer Nonreactive HIV 1&2 Antibody Screen HIV P24 Antigen LABS NOTED. - Treatment Hospital Course: Detox Protocol Followed, Detoxed Safely, Responded well, Discharged Condition Good Patient has Accepted a Rehab Referral to: PT. GOING TO [facility] OP AND [facility] MMTP PROGRAMS ([place], [place]). - Medication Discharge Medications: Ambulatory Orders Quetiapine Fumarate [Seroquel] 200 tab PO HS 06/06/18 Albuterol Sulfate Inhaler - [Ventolin HFA Inhaler -] 1 - 2 inh PO QID 06/07/18 Quetiapine Fumarate [Seroquel -] 50 mg PO DAILY 06/24/18 - Diagnosis (1) Alcohol dependence with uncomplicated withdrawal Status: Acute (2) Sedative hypnotic or anxiolytic dependence Status: Acute (3) Substance-induced anxiety disorder Status: Acute (4) Substance-induced sleep disorder Status: Acute (5) ADHD (attention deficit hyperactivity disorder) Status: Chronic Qualifiers: Attention deficit-hyperactivity disorder type: unspecified Qualified Code(s ): F90.9 - Attention-deficit hyperactivity disorder, unspecified type (6) Asthma Status: Chronic (7) GERD (gastroesophageal reflux disease) Status: Chronic Qualifiers: Esophagitis presence: esophagitis presence not specified Qualified Code(s) : K21.9 - Gastro-esophageal reflux disease without esophagitis (8) Nicotine dependence Status: Chronic Qualifiers: Nicotine product type: cigarettes Substance use status: in withdrawal Qualified Code(s): F17.213 - Nicotine dependence, cigarettes, with withdrawal (9) Opioid dependence on agonist therapy Status: Chronic (10) Bipolar disorder Status: Chronic - AMA Did Patient Leave Against Medical Advice: No
[2018-06-27] MEDS ORDERED: diazePAM 5 MG TABLET PO ONE (22:00)
== END 2018-06-27 15:32 | disposition home or self-care (01) | DRG 773 ==
LOC: YASAS 08:40 → Y3N 11:52
PROVIDERS: ADMIT Neuromusculoskeletal Medicine & OMM; ATTEND Neuromusculoskeletal Medicine & OMM
PROC: HZ2ZZZZ Detoxification Services for Substance Abuse Treatment (ICD-10-PCS; principal; 2018-06-24)
DX: F10.230 Alcohol dependence with withdrawal, uncomplicated (principal); F13.20 Sedative, hypnotic or anxiolytic dependence, uncomplicated; F11.20 Opioid dependence, uncomplicated; F17.213 Nicotine dependence, cigarettes, with withdrawal; F19.280 Other psychoactive substance dependence with psychoactive substance-induced anxiety disorder; F19.282 Other psychoactive substance dependence with psychoactive substance-induced sleep disorder; F90.9 Attention-deficit hyperactivity disorder, unspecified type; F31.9 Bipolar disorder, unspecified; J45.909 Unspecified asthma, uncomplicated; K21.9 Gastro-esophageal reflux disease without esophagitis; Z86.69 Personal history of other diseases of the nervous system and sense organs
CPT/HCPCS: 36415; 80053; 85027; 86593; 87389; 94640

== ENCOUNTER 2022-05-16 11:42 | Emergency (ER) | payer OTHER ==
[2022-05-16 11:50] VITALS: BP 123/78; PULSE 60; RESP 19; TEMP 98.4; BMI 22.3
[2022-05-16 13:46] LABS: BASO % 0.8 % (0-2.0); EOS % 1.8 % (0-4.5); HEMATOCRIT 41.8 % (35.4-49); HEMOGLOBIN 13.8 GM/dL (11.7-16.9); LYMPH % 54.9 % (8-40); MCH 31.6 pg (25.7-33.7); MEAN CELL VOLUME 95.6 fl (80-96); MEAN PLT VOLUME 7.9 fl (7.5-11.1); MONO % 15.8 % (3.8-10.2); NEUT % 26.7 % (42.8-82.8); PLATELET COUNT 230 10^3/uL (134-434); RBC 4.37 M/mm3 (4.00-5.60); RDW 13.3 % (11.9-15.9); WHITE BLOOD COUNT 3.6 K/mm3 (4.0-10.0)
== END 2022-05-16 15:12 | disposition home or self-care (01) ==
LOC: JER 11:42
DX: R05.1 Acute cough (principal)
CPT/HCPCS: 0241U-QW; 36415; 71046-TC-FY; 85025; 99284-25

== ENCOUNTER 2022-06-07 11:38 | Inpatient (IN) | payer OTHER ==
[2022-06-07 12:53] VITALS: BMI 23.6
[2022-06-07] MEDS ORDERED: IBUPROFEN 600 MG TABLET (FP) PO PRN (14:04)
[2022-06-07] MEDS ORDERED: ONDANSETRON *ODT* 4 MG TABLET SL PRN (14:04)
[2022-06-07] MEDS ORDERED: MAG HYDROX/AL HYDROX/SIMETH 30 ML UNIT-DOSE CUP PO PRN (14:04)
[2022-06-07] MEDS ORDERED: NICOTINE 10 MG CARTRIDGE (INHALER) IH PRN (14:04)
[2022-06-07] MEDS ORDERED: LOPERAMIDE HCL 2 MG CAPSULE PO PRN (14:04)
[2022-06-07] MEDS ORDERED: BISMUTH SUBSALICYLATE 262 MG/15 ML BTL PO PRN (14:04)
[2022-06-07] MEDS ORDERED: IBUPROFEN 400 MG TABLET (FP) PO PRN (14:04)
[2022-06-07] MEDS ORDERED: ACETAMINOPHEN 325 MG TABLET (FP) PO PRN ×2 (14:04)
[2022-06-07] MEDS ORDERED: DICYCLOMINE HCL 10 MG CAPSULE PO PRN (14:04)
[2022-06-07] MEDS ORDERED: MAGNESIUM HYDROX 2400MG/30ML ORAL SUSPENSION 30 ML CUP PO PRN (14:04)
[2022-06-07] MEDS ORDERED: NALOXONE HCL (KLOXXADO) 8 MG SPRAY NS PRN (14:04)
[2022-06-07] MEDS ORDERED: NICOTINE POLACRILEX 2 MG GUM BUC PRN (14:04)
[2022-06-07] MEDS ORDERED: BENZOCAINE/MENTHOL (CHLORASEPTIC ) LOZENGE MM PRN (14:04)
[2022-06-07] MEDS ORDERED: POLYETHYLENE GLYCOL (HEALTHYLAX) 3350 17 GM PACKET PO PRN (14:04)
[2022-06-07] MEDS ORDERED: ALBUTEROL SO4 HFA INHALER IH PRN (14:30)
[2022-06-07 18:09] LABS: HEMATOCRIT 43.5 % (35.4-49); HEMOGLOBIN 14.1 GM/dL (11.7-16.9); MCH 31.3 pg (25.7-33.7); MCHC 32.3 g/dl (32.0-35.9); MEAN CELL VOLUME 96.6 fl (80-96); MEAN PLT VOLUME 8.3 fl (7.5-11.1); PLATELET COUNT 239 10^3/uL (134-434); RDW 13.6 % (11.9-15.9); WHITE BLOOD COUNT 4.1 K/mm3 (4.0-10.0)
[2022-06-07 18:13] LABS: CALCIUM 9.2 mg/dL (8.5-10.1)
[2022-06-07 18:15] LABS: ALBUMIN 3.9 g/dl (3.4-5.0); BLOOD UREA NITROGEN 16.2 mg/dL (7-18)
[2022-06-07 18:19] LABS: BILIRUBIN,TOTAL 1.1 mg/dL (0.2-1); TOT PROT 6.9 g/dl (6.4-8.2)
[2022-06-07] MEDS: chlordiazePOXIDE HCL 25 MG CAPSULE PO SCH ×2 (18:23→22:00)
[2022-06-07] MEDS: METHOCARBAMOL 500 MG TABLET PO PRN (20:31)
[2022-06-07] MEDS: THIAMINE HCL 100 MG TABLET (FP) PO SCH (22:01)
[2022-06-07] MEDS: MELATONIN 5 MG TABLETS PO SCH (22:26)
[2022-06-08] MEDS: chlordiazePOXIDE HCL 25 MG CAPSULE PO SCH ×4 (06:13→22:16)
[2022-06-08] MEDS: PRENATAL VITAMINS W/ FOLIC ACID TABLET (FP) PO SCH (10:22)
[2022-06-08] MEDS: ESCITALOPRAM OXALATE 10 MG TABLET PO SCH (11:43)
[2022-06-08] MEDS: chlordiazePOXIDE HCL 25 MG CAPSULE PO PRN (14:52)
[2022-06-08] MEDS: METHOCARBAMOL 500 MG TABLET PO PRN (16:48)
[2022-06-08] MEDS: MELATONIN 5 MG TABLETS PO SCH (22:16)
[2022-06-08] MEDS: THIAMINE HCL 100 MG TABLET (FP) PO SCH (22:16)
[2022-06-09] MEDS: chlordiazePOXIDE HCL 25 MG CAPSULE PO SCH ×4 (05:28→22:05)
[2022-06-09] MEDS: METHOCARBAMOL 500 MG TABLET PO PRN ×2 (08:38→14:11)
[2022-06-09] MEDS: chlordiazePOXIDE HCL 25 MG CAPSULE PO PRN ×2 (08:38→14:13)
[2022-06-09] MEDS: PRENATAL VITAMINS W/ FOLIC ACID TABLET (FP) PO SCH (10:03)
[2022-06-09] MEDS: ESCITALOPRAM OXALATE 10 MG TABLET PO SCH (10:03)
[2022-06-09] MEDS: THIAMINE HCL 100 MG TABLET (FP) PO SCH (22:05)
[2022-06-09] MEDS: MELATONIN 5 MG TABLETS PO SCH (22:06)
[2022-06-10] MEDS: hydrOXYzine PAMOATE 25 MG CAPSULE (FP) PO PRN (01:20)
[2022-06-10] MEDS ORDERED: ALBUTEROL SO4 HFA INHALER IH PRN (02:02)
[2022-06-10] MEDS: chlordiazePOXIDE HCL 10 MG CAPSULE PO SCH ×4 (05:53→22:02)
[2022-06-10] MEDS: chlordiazePOXIDE HCL 10 MG CAPSULE PO PRN ×2 (06:19→12:11)
[2022-06-10] MEDS: ESCITALOPRAM OXALATE 10 MG TABLET PO SCH (10:17)
[2022-06-10] MEDS: PRENATAL VITAMINS W/ FOLIC ACID TABLET (FP) PO SCH (10:17)
[2022-06-10] MEDS: METHOCARBAMOL 500 MG TABLET PO PRN ×2 (10:17→22:02)
[2022-06-10] MEDS: THIAMINE HCL 100 MG TABLET (FP) PO SCH (22:02)
[2022-06-10] MEDS: MELATONIN 5 MG TABLETS PO SCH (22:02)
[2022-06-11] MEDS: chlordiazePOXIDE HCL 10 MG CAPSULE PO SCH ×2 (06:33→18:02)
[2022-06-11] MEDS: ESCITALOPRAM OXALATE 10 MG TABLET PO SCH (10:08)
[2022-06-11] MEDS: PRENATAL VITAMINS W/ FOLIC ACID TABLET (FP) PO SCH (10:09)
[2022-06-11] MEDS: hydrOXYzine PAMOATE 25 MG CAPSULE (FP) PO PRN ×2 (13:48→23:53)
[2022-06-11] MEDS: METHOCARBAMOL 500 MG TABLET PO PRN ×2 (13:48→23:53)
[2022-06-11] MEDS: THIAMINE HCL 100 MG TABLET (FP) PO SCH (22:04)
[2022-06-11] MEDS: MELATONIN 5 MG TABLETS PO SCH (22:04)
[2022-06-12] MEDS ORDERED: chlordiazePOXIDE HCL 10 MG CAPSULE PO ONE (05:00)
[2022-06-12 05:41] VITALS: TEMP 97.5
[2022-06-12 09:04] VITALS: BP 118/55; PULSE 56; RESP 18
[2022-06-12] MEDS: ESCITALOPRAM OXALATE 10 MG TABLET PO SCH (10:14)
[2022-06-12] MEDS: PRENATAL VITAMINS W/ FOLIC ACID TABLET (FP) PO SCH (10:14)
[2022-06-12] MEDS: METHOCARBAMOL 500 MG TABLET PO PRN (10:15)
== END 2022-06-12 12:40 | disposition other institution (70) | DRG 774 ==
LOC: YASAS 11:38 → Y3N 14:19
PROVIDERS: ADMIT Allergy & Immunology; ATTEND Surgery
PROC: HZ2ZZZZ Detoxification Services for Substance Abuse Treatment (ICD-10-PCS; principal; 2022-06-07)
DX: F10.230 Alcohol dependence with withdrawal, uncomplicated (principal); F13.230 Sedative, hypnotic or anxiolytic dependence with withdrawal, uncomplicated; F14.20 Cocaine dependence, uncomplicated; F19.24 Other psychoactive substance dependence with psychoactive substance-induced mood disorder; F32.A Depression, unspecified; J45.909 Unspecified asthma, uncomplicated; R07.9 Chest pain, unspecified; R63.4 Abnormal weight loss; Z68.23 Body mass index [BMI] 23.0-23.9, adult; Z87.891 Personal history of nicotine dependence; Z28.310 Unvaccinated for COVID-19; Z28.9 Immunization not carried out for unspecified reason
CPT/HCPCS: 36415; 80053; 85027; 86780; C9803-CS; U0003; U0005

== ENCOUNTER 2022-06-10 03:26 | Emergency (ER) | payer OTHER ==
[2022-06-10 03:36] VITALS: BP 107/67; PULSE 55; RESP 18; TEMP 97.5; BMI 24.0
[2022-06-10 04:35] LABS: BASO % 1.1 % (0-2.0); EOS % 2.5 % (0-4.5); HEMATOCRIT 42.8 % (35.4-49); MCH 31.1 pg (25.7-33.7); MCHC 32.7 g/dl (32.0-35.9); MEAN CELL VOLUME 95.2 fl (80-96); MEAN PLT VOLUME 7.4 fl (7.5-11.1); MONO % 14.5 % (3.8-10.2); NEUT % 26.9 % (42.8-82.8); PLATELET COUNT 199 10^3/uL (134-434); RBC 4.49 M/mm3 (4.00-5.60); RDW 13.1 % (11.9-15.9); WHITE BLOOD COUNT 3.9 K/mm3 (4.0-10.0)
[2022-06-10 04:42] LABS: INR 0.97 (0.83-1.09); PROTHROMBIN TIME (PATIENT) 11.1 SEC (9.7-13.0)
[2022-06-10 04:56] LABS: BLOOD UREA NITROGEN 14.9 mg/dL (7-18); CALCIUM 8.9 mg/dL (8.5-10.1)
[2022-06-10 04:57] LABS: ALBUMIN 3.9 g/dl (3.4-5.0)
[2022-06-10 05:01] LABS: BILIRUBIN,TOTAL 0.4 mg/dL (0.2-1); TOT PROT 6.9 g/dl (6.4-8.2)
== END 2022-06-10 05:32 | disposition home or self-care (01) ==
LOC: JER 03:26
DX: I20.9 Angina pectoris, unspecified (principal)
CPT/HCPCS: 36415; 71046-TC-FY; 80053; 84484; 85025; 85610; 85730; 93005; 93010; 99285-25

== ENCOUNTER 2022-07-21 13:01 | Inpatient (IN) | payer OTHER ==
[2022-07-21 14:42] VITALS: BMI 27.4
[2022-07-21] MEDS ORDERED: MAGNESIUM HYDROX 2400MG/30ML ORAL SUSPENSION 30 ML CUP PO PRN (21:17)
[2022-07-21] MEDS ORDERED: NALOXONE HCL (KLOXXADO) 8 MG SPRAY NS PRN (21:17)
[2022-07-21] MEDS ORDERED: hydrOXYzine PAMOATE 25 MG CAPSULE (FP) PO PRN (21:17)
[2022-07-21] MEDS ORDERED: NICOTINE POLACRILEX 2 MG GUM BUC PRN (21:17)
[2022-07-21] MEDS ORDERED: POLYETHYLENE GLYCOL (HEALTHYLAX) 3350 17 GM PACKET PO PRN (21:17)
[2022-07-21] MEDS ORDERED: IBUPROFEN 600 MG TABLET (FP) PO PRN (21:17)
[2022-07-21] MEDS ORDERED: BENZOCAINE/MENTHOL (CHLORASEPTIC ) LOZENGE MM PRN (21:17)
[2022-07-21] MEDS ORDERED: BISMUTH SUBSALICYLATE 524 MG/30 ML PO PRN (21:17)
[2022-07-21] MEDS ORDERED: ONDANSETRON *ODT* 4 MG TABLET SL PRN (21:17)
[2022-07-21] MEDS ORDERED: ACETAMINOPHEN 325 MG TABLET (FP) PO PRN ×2 (21:17)
[2022-07-21] MEDS ORDERED: IBUPROFEN 400 MG TABLET (FP) PO PRN (21:17)
[2022-07-21] MEDS ORDERED: METHOCARBAMOL 500 MG TABLET PO PRN (21:17)
[2022-07-21] MEDS ORDERED: NICOTINE 10 MG CARTRIDGE (INHALER) IH PRN (21:17)
[2022-07-21] MEDS ORDERED: DICYCLOMINE HCL 10 MG CAPSULE PO PRN (21:17)
[2022-07-21] MEDS ORDERED: chlordiazePOXIDE HCL 25 MG CAPSULE PO PRN (21:17)
[2022-07-21] MEDS ORDERED: LOPERAMIDE HCL 2 MG CAPSULE PO PRN (21:17)
[2022-07-21] MEDS ORDERED: MAG HYDROX/AL HYDROX/SIMETH 30 ML UNIT-DOSE CUP PO PRN (21:17)
[2022-07-21] MEDS ORDERED: THIAMINE HCL 100 MG TABLET (FP) PO SCH (22:00)
[2022-07-21] MEDS ORDERED: MELATONIN 5 MG TABLETS PO SCH (22:00)
[2022-07-21] MEDS: chlordiazePOXIDE HCL 25 MG CAPSULE PO SCH (22:20)
[2022-07-22] MEDS: chlordiazePOXIDE HCL 25 MG CAPSULE PO SCH (05:28)
[2022-07-22 06:05] VITALS: RESP 17
[2022-07-22 09:34] VITALS: BP 129/71; PULSE 85; TEMP 97.3
[2022-07-22] MEDS ORDERED: NICOTINE 14 MG/24 HOURS TOPICAL PATCH TD SCH (10:00)
[2022-07-22] MEDS ORDERED: PRENATAL VITAMINS W/ FOLIC ACID TABLET (FP) PO SCH (10:00)
[2022-07-23] MEDS ORDERED: chlordiazePOXIDE HCL 25 MG CAPSULE PO SCH (05:00)
[2022-07-24] MEDS ORDERED: chlordiazePOXIDE HCL 10 MG CAPSULE PO PRN
[2022-07-24] MEDS ORDERED: chlordiazePOXIDE HCL 10 MG CAPSULE PO SCH (05:00)
[2022-07-25] MEDS ORDERED: chlordiazePOXIDE HCL 10 MG CAPSULE PO SCH (05:00)
[2022-07-26] MEDS ORDERED: chlordiazePOXIDE HCL 10 MG CAPSULE PO ONE (05:00)
== END 2022-07-22 08:46 | disposition left against medical advice (07) | DRG 770 ==
LOC: YASAS 13:01 → Y6N 21:42
PROVIDERS: ADMIT Allergy & Immunology; ATTEND Surgery
PROC: HZ2ZZZZ Detoxification Services for Substance Abuse Treatment (ICD-10-PCS; principal; 2022-07-21)
DX: F10.230 Alcohol dependence with withdrawal, uncomplicated (principal); F14.20 Cocaine dependence, uncomplicated; F13.20 Sedative, hypnotic or anxiolytic dependence, uncomplicated; F16.20 Hallucinogen dependence, uncomplicated; F12.20 Cannabis dependence, uncomplicated; F17.210 Nicotine dependence, cigarettes, uncomplicated; F31.9 Bipolar disorder, unspecified; F19.24 Other psychoactive substance dependence with psychoactive substance-induced mood disorder; F90.9 Attention-deficit hyperactivity disorder, unspecified type; J45.909 Unspecified asthma, uncomplicated; Z28.310 Unvaccinated for COVID-19; Z28.9 Immunization not carried out for unspecified reason
CPT/HCPCS: C9803-CS; U0003; U0005

== ENCOUNTER 2022-08-23 16:24 | Inpatient (IN) | payer OTHER ==
[2022-08-23 17:52] VITALS: BMI 24.4
[2022-08-23] MEDS ORDERED: P-EPHED 60MG/TRIPROLIDI 2.5MG TABLET PO PRN (18:50)
[2022-08-23] MEDS ORDERED: BISMUTH SUBSALICYLATE 524 MG/30 ML PO PRN (18:50)
[2022-08-23] MEDS ORDERED: LOPERAMIDE HCL 2 MG CAPSULE PO PRN (18:50)
[2022-08-23] MEDS ORDERED: ACETAMINOPHEN 325 MG TABLET (FP) PO PRN (18:50)
[2022-08-23] MEDS ORDERED: NALOXONE HCL (KLOXXADO) 8 MG SPRAY NS PRN (18:50)
[2022-08-23] MEDS ORDERED: ONDANSETRON *ODT* 4 MG TABLET SL PRN (18:50)
[2022-08-23] MEDS ORDERED: MELATONIN 5 MG TABLETS PO PRN (18:50)
[2022-08-23] MEDS ORDERED: NICOTINE 7 MG/24 HOURS TOPICAL PATCH TD PRN (18:50)
[2022-08-23] MEDS ORDERED: guaiFENesin 600 MG TABLET.ER (FP) PO PRN (18:50)
[2022-08-23] MEDS ORDERED: MAGNESIUM HYDROX 2400MG/30ML ORAL SUSPENSION 30 ML CUP PO PRN (18:50)
[2022-08-23] MEDS ORDERED: BENZOCAINE/MENTHOL (CHLORASEPTIC ) LOZENGE MM PRN (18:50)
[2022-08-23] MEDS ORDERED: POLYETHYLENE GLYCOL (HEALTHYLAX) 3350 17 GM PACKET PO PRN (18:50)
[2022-08-23] MEDS ORDERED: NALOXONE HCL 0.4 MG/ML VIAL IM PRN (18:50)
[2022-08-23] MEDS ORDERED: DICYCLOMINE HCL 10 MG CAPSULE PO PRN (18:50)
[2022-08-23] MEDS ORDERED: NICOTINE 10 MG CARTRIDGE (INHALER) IH PRN (18:50)
[2022-08-23] MEDS ORDERED: IBUPROFEN 600 MG TABLET (FP) PO PRN (18:50)
[2022-08-23] MEDS ORDERED: MAG HYDROX/AL HYDROX/SIMETH 30 ML UNIT-DOSE CUP PO PRN (18:50)
[2022-08-23] MEDS ORDERED: NICOTINE POLACRILEX 2 MG GUM BUC PRN (18:50)
[2022-08-23] MEDS ORDERED: BENZONATATE 200 MG CAPSULE PO PRN (18:50)
[2022-08-23] MEDS ORDERED: IBUPROFEN 400 MG TABLET (FP) PO PRN (18:50)
[2022-08-23] MEDS ORDERED: hydrOXYzine PAMOATE 25 MG CAPSULE (FP) PO PRN (18:50)
[2022-08-23] MEDS: THIAMINE HCL 100 MG TABLET (FP) PO SCH (22:31)
[2022-08-23] MEDS: diazePAM 5 MG TABLET PO PRN (22:33)
[2022-08-23] MEDS ORDERED: methaDONE HCL 10 MG TABLET (FOR DETOX USE ONLY) PO ONE (23:33)
[2022-08-23] MEDS ORDERED: GABAPENTIN 300 MG CAPSULE PO ONE (23:36)
[2022-08-24] MEDS: cloNIDine HCL 0.1 MG TABLET PO PRN (01:04)
[2022-08-24] MEDS: diazePAM 5 MG TABLET PO PRN (04:37)
[2022-08-24] MEDS: PRENATAL VITAMINS W/ FOLIC ACID TABLET (FP) PO SCH (10:45)
[2022-08-24 10:50] LABS: HEMATOCRIT 38.4 % (35.4-49); MCH 32.8 pg (25.7-33.7); MCHC 33.8 g/dl (32.0-35.9); MEAN CELL VOLUME 97.2 fl (80-96); PLATELET COUNT 192 10^3/uL (134-434); RBC 3.95 M/mm3 (4.00-5.60); RDW 12.5 % (11.9-15.9); WHITE BLOOD COUNT 3.4 K/mm3 (4.0-10.0)
[2022-08-24 11:00] LABS: ALBUMIN 3.2 g/dl (3.4-5.0); BLOOD UREA NITROGEN 13.4 mg/dL (7-18); CALCIUM 8.7 mg/dL (8.5-10.1)
[2022-08-24 11:03] LABS: CREATININE 0.8 mg/dL (0.55-1.3)
[2022-08-24 11:05] LABS: BILIRUBIN,TOTAL 0.3 mg/dL (0.2-1); TOT PROT 5.8 g/dl (6.4-8.2)
[2022-08-24] MEDS: chlordiazePOXIDE HCL 25 MG CAPSULE PO SCH ×3 (12:13→22:09)
[2022-08-24] MEDS: GABAPENTIN 300 MG CAPSULE PO SCH ×2 (13:41→22:09)
[2022-08-24] MEDS: chlordiazePOXIDE HCL 25 MG CAPSULE PO PRN ×2 (13:41→19:04)
[2022-08-24] MEDS: THIAMINE HCL 100 MG TABLET (FP) PO SCH (22:09)
[2022-08-24] MEDS: METHOCARBAMOL 500 MG TABLET PO PRN (22:09)
[2022-08-25] MEDS: chlordiazePOXIDE HCL 25 MG CAPSULE PO PRN ×2 (00:58→12:27)
[2022-08-25] MEDS: GABAPENTIN 300 MG CAPSULE PO SCH ×3 (05:08→21:11)
[2022-08-25] MEDS: chlordiazePOXIDE HCL 25 MG CAPSULE PO SCH ×4 (05:08→22:15)
[2022-08-25] MEDS ORDERED: methaDONE HCL 10 MG TABLET (FOR DETOX USE ONLY) PO ONE (10:00)
[2022-08-25] MEDS: PRENATAL VITAMINS W/ FOLIC ACID TABLET (FP) PO SCH (10:05)
[2022-08-25] MEDS: ESCITALOPRAM OXALATE 20 MG TABLET PO SCH (10:05)
[2022-08-25] MEDS: METHOCARBAMOL 500 MG TABLET PO PRN ×2 (10:08→17:22)
[2022-08-25] MEDS ORDERED: GABAPENTIN 300 MG CAPSULE PO ONE (14:48)
[2022-08-25] MEDS: cloNIDine HCL 0.1 MG TABLET PO PRN (17:24)
[2022-08-25] MEDS: THIAMINE HCL 100 MG TABLET (FP) PO SCH (21:11)
[2022-08-26] MEDS: chlordiazePOXIDE HCL 25 MG CAPSULE PO PRN ×3 (02:35→19:07)
[2022-08-26] MEDS: GABAPENTIN 300 MG CAPSULE PO SCH ×3 (05:29→22:10)
[2022-08-26] MEDS: chlordiazePOXIDE HCL 25 MG CAPSULE PO SCH ×4 (05:30→22:10)
[2022-08-26] MEDS: METHOCARBAMOL 500 MG TABLET PO PRN ×3 (05:32→17:30)
[2022-08-26] MEDS ORDERED: CLOTRIMAZOLE 1% CREAM TP SCH (10:00)
[2022-08-26] MEDS: ESCITALOPRAM OXALATE 20 MG TABLET PO SCH (10:23)
[2022-08-26] MEDS: PRENATAL VITAMINS W/ FOLIC ACID TABLET (FP) PO SCH (10:23)
[2022-08-26] MEDS: CLOTRIMAZOLE 1% CREAM TP SCH ×2 (13:57→22:10)
[2022-08-26] MEDS: THIAMINE HCL 100 MG TABLET (FP) PO SCH (22:10)
[2022-08-27] MEDS: chlordiazePOXIDE HCL 10 MG CAPSULE PO SCH ×4 (04:25→22:13)
[2022-08-27] MEDS: chlordiazePOXIDE HCL 10 MG CAPSULE PO PRN ×2 (06:02→13:53)
[2022-08-27] MEDS: GABAPENTIN 300 MG CAPSULE PO SCH ×3 (06:02→22:12)
[2022-08-27] MEDS ORDERED: methaDONE HCL 10 MG TABLET (FOR DETOX USE ONLY) PO ONE (10:00)
[2022-08-27] MEDS: PRENATAL VITAMINS W/ FOLIC ACID TABLET (FP) PO SCH (10:16)
[2022-08-27] MEDS: METHOCARBAMOL 500 MG TABLET PO PRN (10:16)
[2022-08-27] MEDS: ESCITALOPRAM OXALATE 20 MG TABLET PO SCH (10:16)
[2022-08-27] MEDS: CLOTRIMAZOLE 1% CREAM TP SCH ×3 (10:18→22:12)
[2022-08-27] MEDS: THIAMINE HCL 100 MG TABLET (FP) PO SCH (22:13)
[2022-08-28] MEDS ORDERED: chlordiazePOXIDE HCL 10 MG CAPSULE PO SCH (05:00)
[2022-08-28] MEDS: GABAPENTIN 300 MG CAPSULE PO SCH (05:11)
[2022-08-28 09:21] VITALS: BP 116/63; PULSE 57; RESP 18; TEMP 96.9
[2022-08-28] MEDS: CLOTRIMAZOLE 1% CREAM TP SCH (10:14)
[2022-08-28] MEDS: ESCITALOPRAM OXALATE 20 MG TABLET PO SCH (10:14)
[2022-08-28] MEDS: PRENATAL VITAMINS W/ FOLIC ACID TABLET (FP) PO SCH (10:14)
[2022-08-28] MEDS ORDERED: hydrOXYzine PAMOATE 50 MG CAPSULE (FP) PO PRN (10:54)
[2022-08-29] MEDS ORDERED: chlordiazePOXIDE HCL 10 MG CAPSULE PO ONE (05:00)
== END 2022-08-28 12:19 | DRG 773 ==
LOC: YASAS 16:24 → UNDOADMIN 19:15 → Y3N 19:15
PROVIDERS: ADMIT Allergy & Immunology; ATTEND Surgery
PROC: HZ2ZZZZ Detoxification Services for Substance Abuse Treatment (ICD-10-PCS; principal; 2022-08-23)
DX: F11.23 Opioid dependence with withdrawal (principal); F10.230 Alcohol dependence with withdrawal, uncomplicated; F14.20 Cocaine dependence, uncomplicated; F12.10 Cannabis abuse, uncomplicated; F16.10 Hallucinogen abuse, uncomplicated; F17.210 Nicotine dependence, cigarettes, uncomplicated; F19.24 Other psychoactive substance dependence with psychoactive substance-induced mood disorder; F31.9 Bipolar disorder, unspecified; F43.10 Post-traumatic stress disorder, unspecified; Z28.310 Unvaccinated for COVID-19; Z28.9 Immunization not carried out for unspecified reason
CPT/HCPCS: 36415; 80053; 85027; 86780; 87811; C9803-CS; U0003; U0005

== ENCOUNTER 2022-08-28 12:26 | Inpatient (IN) | payer OTHER ==
[2022-08-28] MEDS ORDERED: BENZONATATE 200 MG CAPSULE PO PRN (13:08)
[2022-08-28] MEDS ORDERED: POLYETHYLENE GLYCOL (HEALTHYLAX) 3350 17 GM PACKET PO PRN (13:08)
[2022-08-28] MEDS ORDERED: NALOXONE HCL 0.4 MG/ML VIAL IVPUSH PRN (13:08)
[2022-08-28] MEDS ORDERED: hydrOXYzine PAMOATE 25 MG CAPSULE (FP) PO PRN (13:08)
[2022-08-28] MEDS ORDERED: guaiFENesin 600 MG TABLET.ER (FP) PO PRN (13:08)
[2022-08-28] MEDS ORDERED: NALOXONE HCL (KLOXXADO) 8 MG SPRAY NS PRN (13:08)
[2022-08-28] MEDS ORDERED: BENZOCAINE/MENTHOL (CHLORASEPTIC ) LOZENGE MM PRN (13:08)
[2022-08-28] MEDS ORDERED: IBUPROFEN 600 MG TABLET (FP) PO PRN (13:08)
[2022-08-28] MEDS ORDERED: LOPERAMIDE HCL 2 MG CAPSULE PO PRN (13:08)
[2022-08-28] MEDS ORDERED: MAG HYDROX/AL HYDROX/SIMETH 30 ML UNIT-DOSE CUP PO PRN (13:08)
[2022-08-28] MEDS ORDERED: MAGNESIUM HYDROX 2400MG/30ML ORAL SUSPENSION 30 ML CUP PO PRN (13:08)
[2022-08-28] MEDS: GABAPENTIN 300 MG CAPSULE PO SCH ×2 (15:00→21:18)
[2022-08-28] MEDS: THIAMINE HCL 100 MG TABLET (FP) PO SCH (21:18)
[2022-08-28] MEDS: METHOCARBAMOL 500 MG TABLET PO PRN (21:19)
[2022-08-28] MEDS ORDERED: MELATONIN 5 MG TABLETS PO SCH (22:00)
[2022-08-29] MEDS: GABAPENTIN 300 MG CAPSULE PO SCH ×2 (07:59→22:10)
[2022-08-29] MEDS: ESCITALOPRAM OXALATE 20 MG TABLET PO SCH (09:48)
[2022-08-29] MEDS: PRENATAL VITAMINS W/ FOLIC ACID TABLET (FP) PO SCH (09:48)
[2022-08-29] MEDS ORDERED: GABAPENTIN 300 MG CAPSULE PO SCH (14:00)
[2022-08-29] MEDS: METHOCARBAMOL 500 MG TABLET PO PRN (22:10)
[2022-08-29] MEDS: THIAMINE HCL 100 MG TABLET (FP) PO SCH (22:11)
[2022-08-30] MEDS: GABAPENTIN 300 MG CAPSULE PO SCH ×3 (07:20→21:18)
[2022-08-30] MEDS: ESCITALOPRAM OXALATE 20 MG TABLET PO SCH (10:09)
[2022-08-30] MEDS: PRENATAL VITAMINS W/ FOLIC ACID TABLET (FP) PO SCH (10:09)
[2022-08-30] MEDS: IBUPROFEN 400 MG TABLET (FP) PO PRN (12:52)
[2022-08-30] MEDS: METHOCARBAMOL 500 MG TABLET PO PRN (21:17)
[2022-08-30] MEDS: THIAMINE HCL 100 MG TABLET (FP) PO SCH (21:18)
[2022-08-31] MEDS: GABAPENTIN 300 MG CAPSULE PO SCH ×3 (06:57→21:13)
[2022-08-31] MEDS: ESCITALOPRAM OXALATE 20 MG TABLET PO SCH (09:41)
[2022-08-31] MEDS: PRENATAL VITAMINS W/ FOLIC ACID TABLET (FP) PO SCH (09:41)
[2022-08-31] MEDS: hydrOXYzine PAMOATE 25 MG CAPSULE (FP) PO PRN ×2 (09:42→21:13)
[2022-08-31] MEDS: NICOTINE 10 MG CARTRIDGE (INHALER) IH PRN (09:43)
[2022-08-31] MEDS: THIAMINE HCL 100 MG TABLET (FP) PO SCH (21:13)
[2022-08-31] MEDS: METHOCARBAMOL 500 MG TABLET PO PRN (21:13)
[2022-09-01] MEDS: hydrOXYzine PAMOATE 25 MG CAPSULE (FP) PO PRN ×2 (01:52→23:16)
[2022-09-01] MEDS: IBUPROFEN 400 MG TABLET (FP) PO PRN ×2 (01:52→23:16)
[2022-09-01] MEDS: GABAPENTIN 300 MG CAPSULE PO SCH ×3 (07:20→23:16)
[2022-09-01] MEDS: PRENATAL VITAMINS W/ FOLIC ACID TABLET (FP) PO SCH (09:42)
[2022-09-01] MEDS: ESCITALOPRAM OXALATE 20 MG TABLET PO SCH (09:43)
[2022-09-01] MEDS: NICOTINE 10 MG CARTRIDGE (INHALER) IH PRN ×2 (16:56→21:21)
[2022-09-01] MEDS: METHOCARBAMOL 500 MG TABLET PO PRN (23:17)
[2022-09-01] MEDS: THIAMINE HCL 100 MG TABLET (FP) PO SCH (23:17)
[2022-09-02] MEDS: hydrOXYzine PAMOATE 25 MG CAPSULE (FP) PO PRN (04:31)
[2022-09-02] MEDS: GABAPENTIN 300 MG CAPSULE PO SCH ×3 (06:16→22:28)
[2022-09-02] MEDS: ESCITALOPRAM OXALATE 20 MG TABLET PO SCH (10:07)
[2022-09-02] MEDS: NICOTINE 10 MG CARTRIDGE (INHALER) IH PRN (10:07)
[2022-09-02] MEDS: PRENATAL VITAMINS W/ FOLIC ACID TABLET (FP) PO SCH (10:07)
[2022-09-02] MEDS: METHOCARBAMOL 500 MG TABLET PO PRN (22:27)
[2022-09-02] MEDS: IBUPROFEN 400 MG TABLET (FP) PO PRN (22:27)
[2022-09-02] MEDS: THIAMINE HCL 100 MG TABLET (FP) PO SCH (22:27)
[2022-09-03] MEDS: hydrOXYzine PAMOATE 25 MG CAPSULE (FP) PO PRN ×3 (01:15→23:53)
[2022-09-03] MEDS: ACETAMINOPHEN 325 MG TABLET (FP) PO PRN ×3 (01:15→22:06)
[2022-09-03] MEDS: GABAPENTIN 300 MG CAPSULE PO SCH ×3 (07:14→21:12)
[2022-09-03] MEDS: PRENATAL VITAMINS W/ FOLIC ACID TABLET (FP) PO SCH (09:46)
[2022-09-03] MEDS: NICOTINE 10 MG CARTRIDGE (INHALER) IH PRN ×3 (09:47→22:05)
[2022-09-03] MEDS: ESCITALOPRAM OXALATE 20 MG TABLET PO SCH (09:47)
[2022-09-03] MEDS: THIAMINE HCL 100 MG TABLET (FP) PO SCH (21:12)
[2022-09-04] MEDS: GABAPENTIN 300 MG CAPSULE PO SCH (06:43)
[2022-09-04] MEDS: ESCITALOPRAM OXALATE 20 MG TABLET PO SCH (09:47)
[2022-09-04] MEDS: NICOTINE 10 MG CARTRIDGE (INHALER) IH PRN ×3 (09:47→23:02)
[2022-09-04] MEDS: PRENATAL VITAMINS W/ FOLIC ACID TABLET (FP) PO SCH (09:47)
[2022-09-04] MEDS: hydrOXYzine PAMOATE 25 MG CAPSULE (FP) PO PRN (11:43)
[2022-09-04] MEDS: GABAPENTIN 400 MG CAPSULE PO SCH ×2 (13:58→21:17)
[2022-09-04] MEDS: ACETAMINOPHEN 325 MG TABLET (FP) PO PRN (18:14)
[2022-09-04] MEDS: THIAMINE HCL 100 MG TABLET (FP) PO SCH (21:17)
[2022-09-04] MEDS: SUVOREXANT 10 MG TABLET PO PRN (21:19)
[2022-09-05] MEDS: hydrOXYzine PAMOATE 25 MG CAPSULE (FP) PO PRN ×2 (01:51→23:15)
[2022-09-05] MEDS: GABAPENTIN 400 MG CAPSULE PO SCH ×3 (06:18→21:11)
[2022-09-05] MEDS: NICOTINE 10 MG CARTRIDGE (INHALER) IH PRN ×3 (08:25→19:44)
[2022-09-05] MEDS: ESCITALOPRAM OXALATE 20 MG TABLET PO SCH (09:42)
[2022-09-05] MEDS: PRENATAL VITAMINS W/ FOLIC ACID TABLET (FP) PO SCH (09:42)
[2022-09-05] MEDS: THIAMINE HCL 100 MG TABLET (FP) PO SCH (21:11)
[2022-09-05] MEDS: SUVOREXANT 10 MG TABLET PO PRN (21:12)
[2022-09-06] MEDS: ACETAMINOPHEN 325 MG TABLET (FP) PO PRN (01:03)
[2022-09-06] MEDS: GABAPENTIN 400 MG CAPSULE PO SCH ×3 (06:06→21:18)
[2022-09-06] MEDS: ESCITALOPRAM OXALATE 20 MG TABLET PO SCH (09:53)
[2022-09-06] MEDS: PRENATAL VITAMINS W/ FOLIC ACID TABLET (FP) PO SCH (09:53)
[2022-09-06] MEDS: NICOTINE 10 MG CARTRIDGE (INHALER) IH PRN (12:20)
[2022-09-06] MEDS: THIAMINE HCL 100 MG TABLET (FP) PO SCH (21:18)
[2022-09-06] MEDS: SUVOREXANT 10 MG TABLET PO PRN (21:19)
[2022-09-07] MEDS: GABAPENTIN 400 MG CAPSULE PO SCH ×3 (06:33→22:34)
[2022-09-07] MEDS: PRENATAL VITAMINS W/ FOLIC ACID TABLET (FP) PO SCH (09:36)
[2022-09-07] MEDS: ESCITALOPRAM OXALATE 20 MG TABLET PO SCH (09:37)
[2022-09-07] MEDS: hydrOXYzine PAMOATE 25 MG CAPSULE (FP) PO PRN (13:24)
[2022-09-07] MEDS: ACETAMINOPHEN 325 MG TABLET (FP) PO PRN (13:24)
[2022-09-07] MEDS: TOLNAFTATE 1% CREAM 15 GM TUBE TP SCH ×2 (13:26→22:35)
[2022-09-07] MEDS: SUVOREXANT 10 MG TABLET PO PRN (22:33)
[2022-09-07] MEDS: THIAMINE HCL 100 MG TABLET (FP) PO SCH (22:34)
[2022-09-07] MEDS: NICOTINE 10 MG CARTRIDGE (INHALER) IH PRN (22:42)
[2022-09-08] MEDS: GABAPENTIN 400 MG CAPSULE PO SCH ×3 (06:24→23:03)
[2022-09-08 07:51] VITALS: BP 124/75; PULSE 57; RESP 18; TEMP 98
[2022-09-08] MEDS: hydrOXYzine PAMOATE 25 MG CAPSULE (FP) PO PRN (09:10)
[2022-09-08] MEDS: PRENATAL VITAMINS W/ FOLIC ACID TABLET (FP) PO SCH (09:52)
[2022-09-08] MEDS: ESCITALOPRAM OXALATE 20 MG TABLET PO SCH (09:53)
[2022-09-08] MEDS: TOLNAFTATE 1% CREAM 15 GM TUBE TP SCH ×2 (09:54→23:04)
[2022-09-08] MEDS: NICOTINE 10 MG CARTRIDGE (INHALER) IH PRN (10:03)
[2022-09-08] MEDS: ALBUTEROL SO4 HFA INHALER IH PRN ×2 (11:59→22:24)
[2022-09-08] MEDS: SUVOREXANT 10 MG TABLET PO PRN (23:04)
[2022-09-08] MEDS: THIAMINE HCL 100 MG TABLET (FP) PO SCH (23:04)
[2022-09-09] MEDS: hydrOXYzine PAMOATE 25 MG CAPSULE (FP) PO PRN (00:16)
== END 2022-09-09 00:35 | disposition home or self-care (01) | DRG 772 ==
LOC: YASAS 12:26 → Y5N 12:28
PROVIDERS: ADMIT Allergy & Immunology; ATTEND Psychiatry & Neurology Pain Medicine
PROC: HZ42ZZZ Group Counseling for Substance Abuse Treatment, Cognitive-Behavioral (ICD-10-PCS; principal; 2022-08-28)
DX: F11.20 Opioid dependence, uncomplicated (principal); F14.20 Cocaine dependence, uncomplicated; F10.20 Alcohol dependence, uncomplicated; F16.10 Hallucinogen abuse, uncomplicated; F17.210 Nicotine dependence, cigarettes, uncomplicated; Z59.9 Problem related to housing and economic circumstances, unspecified; Z88.8 Allergy status to other drugs, medicaments and biological substances
CPT/HCPCS: 36415; 86803

== ENCOUNTER 2022-10-03 13:02 | Emergency (ER) | payer OTHER ==
[2022-10-03] MEDS ORDERED: SODIUM CHLORIDE 1,000 ML IV STA (13:22)
[2022-10-03] MEDS ORDERED: ACETAMINOPHEN 325 MG TABLET (FP) PO ONE (13:26)
[2022-10-03] MEDS ORDERED: ACETAMINOPHEN 325 MG TABLET (FP) ONE (13:36)
[2022-10-03] MEDS ORDERED: ASPIRIN 81 MG CHEWABLE TABLETS PO ONE (13:37)
[2022-10-03 14:11] VITALS: BMI 31.7
[2022-10-03 14:26] LABS: BASO % 0.9 % (0-2.0); EOS % 1.2 % (0-4.5); HEMATOCRIT 44.5 % (35.4-49); HEMOGLOBIN 15.5 GM/dL (11.7-16.9); LYMPH % 41.2 % (8-40); MCH 32.3 pg (25.7-33.7); MCHC 34.8 g/dl (32.0-35.9); MEAN CELL VOLUME 92.9 fl (80-96); MEAN PLT VOLUME 8.5 fl (7.5-11.1); MONO % 12.1 % (3.8-10.2); NEUT % 44.6 % (42.8-82.8); PLATELET COUNT 190 10^3/uL (134-434); RBC 4.79 M/mm3 (4.00-5.60); RDW 12.8 % (11.9-15.9); WHITE BLOOD COUNT 2.9 K/mm3 (4.0-10.0)
[2022-10-03 14:48] LABS: ALBUMIN 4.1 g/dl (3.4-5.0); BLOOD UREA NITROGEN 10.6 mg/dL (7-18); CALCIUM 9.4 mg/dL (8.5-10.1); MAGNESIUM 1.9 mg/dL (1.8-2.4)
[2022-10-03 14:51] LABS: CREATININE 0.8 mg/dL (0.55-1.3)
[2022-10-03 14:53] LABS: BILIRUBIN,TOTAL 1.1 mg/dL (0.2-1); TOT PROT 7.4 g/dl (6.4-8.2)
[2022-10-03] MEDS ORDERED: clonazePAM 2 MG TABLET PO ONE (16:18)
[2022-10-03] MEDS ORDERED: ASPIRIN 81 MG CHEWABLE TABLETS ONE (16:28)
[2022-10-03] MEDS ORDERED: clonazePAM 2 MG TABLET ONE (16:29)
[2022-10-03 17:13] LABS: HIV INTERPRETATION NEGATIVE (NEGATIVE)
[2022-10-03 18:02] VITALS: BP 96/57; PULSE 48; RESP 15; TEMP 97.1
== END 2022-10-03 18:30 | disposition home or self-care (01) ==
LOC: JER 13:02
PROC: 3E0337Z Introduction of Electrolytic and Water Balance Substance into Peripheral Vein, Percutaneous Approach (ICD-10-PCS; principal; 2022-10-03)
DX: R07.9 Chest pain, unspecified (principal); R55 Syncope and collapse; R07.0 Pain in throat; F19.10 Other psychoactive substance abuse, uncomplicated
CPT/HCPCS: 36415; 70450-TC; 71045-TC-FY; 80053; 83735; 84484; 85025; 87389; 93005; 93010; 99285-25

== ENCOUNTER 2022-10-19 04:26 | Inpatient (IN) | payer OTHER ==
[2022-10-19 05:04] VITALS: BMI 25.4
[2022-10-19] MEDS ORDERED: NALOXONE HCL (KLOXXADO) 8 MG SPRAY NS PRN (05:35)
[2022-10-19] MEDS ORDERED: DICYCLOMINE HCL 10 MG CAPSULE PO PRN (05:35)
[2022-10-19] MEDS ORDERED: NALOXONE HCL 0.4 MG/ML VIAL IM PRN (05:35)
[2022-10-19] MEDS ORDERED: BISMUTH SUBSALICYLATE 524 MG/30 ML PO PRN (05:35)
[2022-10-19] MEDS ORDERED: guaiFENesin 600 MG TABLET.ER (FP) PO PRN (05:35)
[2022-10-19] MEDS ORDERED: POLYETHYLENE GLYCOL (HEALTHYLAX) 3350 17 GM PACKET PO PRN (05:35)
[2022-10-19] MEDS ORDERED: MAG HYDROX/AL HYDROX/SIMETH 30 ML UNIT-DOSE CUP PO PRN (05:35)
[2022-10-19] MEDS ORDERED: METHOCARBAMOL 500 MG TABLET PO PRN (05:35)
[2022-10-19] MEDS ORDERED: hydrOXYzine PAMOATE 25 MG CAPSULE (FP) PO PRN (05:35)
[2022-10-19] MEDS ORDERED: LOPERAMIDE HCL 2 MG CAPSULE PO PRN (05:35)
[2022-10-19] MEDS ORDERED: IBUPROFEN 400 MG TABLET (FP) PO PRN (05:35)
[2022-10-19] MEDS ORDERED: ACETAMINOPHEN 325 MG TABLET (FP) PO PRN (05:35)
[2022-10-19] MEDS ORDERED: NICOTINE POLACRILEX 4 MG GUM BUC PRN (05:35)
[2022-10-19] MEDS ORDERED: IBUPROFEN 600 MG TABLET (FP) PO PRN (05:35)
[2022-10-19] MEDS ORDERED: MAGNESIUM HYDROX 2400MG/30ML ORAL SUSPENSION 30 ML CUP PO PRN (05:35)
[2022-10-19] MEDS ORDERED: ONDANSETRON *ODT* 4 MG TABLET SL PRN (05:35)
[2022-10-19] MEDS ORDERED: BENZOCAINE/MENTHOL (CHLORASEPTIC ) LOZENGE MM PRN (05:35)
[2022-10-19] MEDS ORDERED: BENZONATATE 200 MG CAPSULE PO PRN (05:35)
[2022-10-19] MEDS ORDERED: diazePAM 5 MG TABLET PO PRN (05:48)
[2022-10-19 09:05] VITALS: TEMP 97.7
[2022-10-19] MEDS ORDERED: PRENATAL VITAMINS W/ FOLIC ACID TABLET (FP) PO SCH (10:00)
[2022-10-19] MEDS ORDERED: NICOTINE 21 MG/24 HOURS TOPICAL PATCH TD SCH (10:00)
[2022-10-19 13:57] VITALS: BP 102/59; PULSE 65; RESP 17
[2022-10-19] MEDS ORDERED: GABAPENTIN 300 MG CAPSULE PO SCH (14:45)
[2022-10-19] MEDS ORDERED: THIAMINE HCL 100 MG TABLET (FP) PO SCH (22:00)
== END 2022-10-19 15:21 | disposition left against medical advice (07) | DRG 770 ==
LOC: YASAS 04:26 → Y6N 05:45 → UNDOADMIN 05:45 → UNDODISIN 15:21
PROVIDERS: ADMIT Allergy & Immunology; ATTEND Surgery
PROC: HZ2ZZZZ Detoxification Services for Substance Abuse Treatment (ICD-10-PCS; principal; 2022-10-19)
DX: F11.20 Opioid dependence, uncomplicated (principal); F14.20 Cocaine dependence, uncomplicated; F13.20 Sedative, hypnotic or anxiolytic dependence, uncomplicated; F12.20 Cannabis dependence, uncomplicated; F17.210 Nicotine dependence, cigarettes, uncomplicated; F31.9 Bipolar disorder, unspecified; F19.24 Other psychoactive substance dependence with psychoactive substance-induced mood disorder
CPT/HCPCS: 36415; 73562-TC-LT-FY; 87389; 87517; C9803-CS; U0003; U0005

== ENCOUNTER 2023-01-03 14:26 | Emergency (ER) | payer OTHER ==
[2023-01-03 15:07] VITALS: BP 116/78; PULSE 87; RESP 18; TEMP 98.3; BMI 26.4
[2023-01-03] MEDS ORDERED: SODIUM CHLORIDE 0.9% 500 ML INFUS.BAG IV ONE (15:28)
[2023-01-03 16:38] LABS: EOS % 0.7 % (0-4.5); HEMOGLOBIN 14.5 GM/dL (11.7-16.9); MCH 31.4 pg (25.7-33.7); MCHC 33.6 g/dl (32.0-35.9); MEAN CELL VOLUME 93.3 fl (80-96); MEAN PLT VOLUME 8.5 fl (7.5-11.1); MONO % 9.4 % (3.8-10.2); NEUT % 50.9 % (42.8-82.8); PLATELET COUNT 234 10^3/uL (134-434); RBC 4.61 M/mm3 (4.00-5.60); RDW 13.7 % (11.9-15.9); WHITE BLOOD COUNT 5.3 K/mm3 (4.0-10.0)
[2023-01-03 16:59] LABS: POTASSIUM 3.9 mmol/L (3.5-5.1)
[2023-01-03 17:01] LABS: ALBUMIN 4.4 g/dl (3.4-5.0); BLOOD UREA NITROGEN 13.4 mg/dL (7-18)
[2023-01-03 17:02] LABS: PH,URINE 5.5 (5.0-8.0); URINE APPEARANCE CLEAR; URINE BILIRUBIN NEGATIVE (NEGATIVE); URINE COLOR YELLOW; URINE GLUCOSE (UA) NEGATIVE (NEGATIVE); URINE KETONE NEGATIVE (NEGATIVE); URINE LEUK ESTERASE NEGATIVE (NEGATIVE); URINE NITRITE NEGATIVE (NEGATIVE); URINE PROTEIN NEGATIVE (NEGATIVE)
[2023-01-03 17:03] LABS: CALCIUM 9.4 mg/dL (8.5-10.1)
[2023-01-03 17:06] LABS: BILIRUBIN,TOTAL 0.7 mg/dL (0.2-1); TOT PROT 7.5 g/dl (6.4-8.2)
[2023-01-03 17:55] LABS: HIV INTERPRETATION NEGATIVE (NEGATIVE)
== END 2023-01-03 20:07 | disposition home or self-care (01) ==
LOC: JER 14:26
DX: F41.0 Panic disorder [episodic paroxysmal anxiety] (principal); N50.812 Left testicular pain; R55 Syncope and collapse
CPT/HCPCS: 36415; 70450-TC; 71046-TC-FY; 72125-TC; 76870-TC; 80053; 81003; 84484; 85025; 87086; 87389; 93005; 93010; 99285-25

== ENCOUNTER 2023-01-04 13:47 | Emergency (ER) | payer OTHER ==
[2023-01-04 13:54] VITALS: BP 118/70; PULSE 77; RESP 20; TEMP 98.2; BMI 26.4
== END 2023-01-04 16:19 | disposition home or self-care (01) ==
LOC: JER 13:47
DX: F41.9 Anxiety disorder, unspecified (principal)
CPT/HCPCS: 82962; 99283-25

== ENCOUNTER 2023-01-27 12:03 | Emergency (ER) | payer OTHER ==
[2023-01-27 12:12] VITALS: BP 124/65; PULSE 52; RESP 18; TEMP 97; BMI 26.4
[2023-01-27] MEDS ORDERED: clonazePAM 2 MG TABLET PO ONE (12:51)
[2023-01-27] MEDS ORDERED: clonazePAM 2 MG TABLET ONE (12:59)
== END 2023-01-27 13:04 | disposition home or self-care (01) ==
LOC: JER 12:03 → JERFT 12:03
DX: F13.930 Sedative, hypnotic or anxiolytic use, unspecified with withdrawal, uncomplicated (principal); R11.0 Nausea; R09.81 Nasal congestion
CPT/HCPCS: 99283-25

== ENCOUNTER 2023-02-10 07:57 | Emergency (ER) | payer OTHER ==
[2023-02-10 08:16] VITALS: RESP 20; BMI 26.4
[2023-02-10] MEDS ORDERED: ACETAMINOPHEN 500 MG TABLET (FP) PO ONE (08:23)
[2023-02-10 08:53] LABS: BASO % 0.9 % (0-2.0); EOS % 0.2 % (0-4.5); HEMATOCRIT 46.4 % (35.4-49); HEMOGLOBIN 15.5 GM/dL (11.7-16.9); LYMPH % 15.3 % (8-40); MCH 31.8 pg (25.7-33.7); MCHC 33.4 g/dl (32.0-35.9); MEAN CELL VOLUME 95.2 fl (80-96); MEAN PLT VOLUME 8.5 fl (7.5-11.1); MONO % 8.5 % (3.8-10.2); NEUT % 75.1 % (42.8-82.8); PLATELET COUNT 178 10^3/uL (134-434); RBC 4.88 M/mm3 (4.00-5.60); WHITE BLOOD COUNT 4.1 K/mm3 (4.0-10.0)
[2023-02-10 09:18] LABS: ALBUMIN 4.4 g/dl (3.4-5.0); BLOOD UREA NITROGEN 16.6 mg/dL (7-18); CALCIUM 9.2 mg/dL (8.5-10.1); MAGNESIUM 2.2 mg/dL (1.8-2.4)
[2023-02-10 09:23] LABS: TOT PROT 7.5 g/dl (6.4-8.2)
[2023-02-10] MEDS ORDERED: DIPHTH,PERTUSS(ACELL),TET 0.5 ML DISP.SYRIN IM ONE ×2 (10:09→10:11)
[2023-02-10 10:12] VITALS: BP 107/62; PULSE 56; TEMP 97.5
== END 2023-02-10 10:14 | disposition home or self-care (01) ==
LOC: JER 07:57
DX: R56.9 Unspecified convulsions (principal); R55 Syncope and collapse; R51.9 Headache, unspecified
CPT/HCPCS: 36415; 70450-TC; 71045-TC-FY; 72125-TC; 80053; 82962; 83605; 83735; 85025; 93005; 93010; 99285-25

== ENCOUNTER 2023-02-23 05:16 | Inpatient (IN) | payer OTHER ==
[2023-02-23 05:38] VITALS: BMI 25.2
[2023-02-23] MEDS ORDERED: MAG HYDROX/AL HYDROX/SIMETH 30 ML UNIT-DOSE CUP PO PRN (06:20)
[2023-02-23] MEDS ORDERED: LOPERAMIDE HCL 2 MG CAPSULE PO PRN (06:20)
[2023-02-23] MEDS ORDERED: MAGNESIUM HYDROX 2400MG/30ML ORAL SUSPENSION 30 ML CUP PO PRN (06:20)
[2023-02-23] MEDS ORDERED: IBUPROFEN 600 MG TABLET (FP) PO PRN (06:20)
[2023-02-23] MEDS ORDERED: BISMUTH SUBSALICYLATE 524 MG/30 ML PO PRN (06:20)
[2023-02-23] MEDS ORDERED: POLYETHYLENE GLYCOL (HEALTHYLAX) 3350 17 GM PACKET PO PRN (06:20)
[2023-02-23] MEDS ORDERED: BENZOCAINE/MENTHOL (CHLORASEPTIC ) LOZENGE MM PRN (06:20)
[2023-02-23] MEDS ORDERED: IBUPROFEN 400 MG TABLET (FP) PO PRN (06:20)
[2023-02-23] MEDS ORDERED: NALOXONE HCL 0.4 MG/ML VIAL IM PRN (06:20)
[2023-02-23] MEDS ORDERED: NALOXONE HCL (KLOXXADO) 8 MG SPRAY NS PRN (06:20)
[2023-02-23] MEDS ORDERED: ACETAMINOPHEN 325 MG TABLET (FP) PO PRN (06:20)
[2023-02-23] MEDS ORDERED: guaiFENesin 600 MG TABLET.ER (FP) PO PRN (06:20)
[2023-02-23] MEDS ORDERED: methaDONE HCL 10 MG TABLET (FOR DETOX USE ONLY) PO ONE ×2 (06:20→10:00)
[2023-02-23] MEDS ORDERED: ONDANSETRON *ODT* 4 MG TABLET SL PRN (06:20)
[2023-02-23] MEDS ORDERED: DICYCLOMINE HCL 10 MG CAPSULE PO PRN (06:20)
[2023-02-23] MEDS ORDERED: methaDONE HCL 10 MG TABLET (FOR DETOX USE ONLY) ONE ×2 (07:27→10:09)
[2023-02-23] MEDS ORDERED: chlordiazePOXIDE HCL 25 MG CAPSULE ONE ×2 (07:27→11:31)
[2023-02-23] MEDS: chlordiazePOXIDE HCL 25 MG CAPSULE PO SCH ×4 (07:30→22:12)
[2023-02-23] MEDS: NICOTINE 21 MG/24 HOURS TOPICAL PATCH TD SCH (10:02)
[2023-02-23] MEDS: PRENATAL VITAMINS W/ FOLIC ACID TABLET (FP) PO SCH (10:02)
[2023-02-23] MEDS ORDERED: NICOTINE 21 MG/24 HOURS TOPICAL PATCH ONE (10:09)
[2023-02-23] MEDS ORDERED: PRENATAL VITAMINS W/ FOLIC ACID TABLET (FP) PO ONE (10:10)
[2023-02-23] MEDS: cloNIDine HCL 0.1 MG TABLET PO PRN ×2 (14:11→23:07)
[2023-02-23] MEDS: METHOCARBAMOL 500 MG TABLET PO PRN ×2 (14:11→22:16)
[2023-02-23] MEDS: chlordiazePOXIDE HCL 25 MG CAPSULE PO PRN (20:14)
[2023-02-23] MEDS: THIAMINE HCL 100 MG TABLET (FP) PO SCH (22:12)
[2023-02-24] MEDS: chlordiazePOXIDE HCL 25 MG CAPSULE PO PRN ×2 (01:28→19:40)
[2023-02-24] MEDS: chlordiazePOXIDE HCL 25 MG CAPSULE PO SCH ×4 (04:45→22:04)
[2023-02-24] MEDS: cloNIDine HCL 0.1 MG TABLET PO PRN ×2 (04:46→13:36)
[2023-02-24] MEDS: PRENATAL VITAMINS W/ FOLIC ACID TABLET (FP) PO SCH (10:04)
[2023-02-24] MEDS: ESCITALOPRAM OXALATE 10 MG TABLET PO SCH (10:06)
[2023-02-24] MEDS: NICOTINE 21 MG/24 HOURS TOPICAL PATCH TD SCH (10:06)
[2023-02-24] MEDS: levETIRAcetam 500 MG TABLET (FP) PO SCH (10:06)
[2023-02-24] MEDS: METHOCARBAMOL 500 MG TABLET PO PRN ×2 (10:08→22:03)
[2023-02-24] MEDS: BENZONATATE 200 MG CAPSULE PO PRN ×2 (12:40→22:59)
[2023-02-24] MEDS: ALBUTEROL SO4 HFA INHALER IH PRN ×3 (15:37→23:00)
[2023-02-24] MEDS: THIAMINE HCL 100 MG TABLET (FP) PO SCH (22:03)
[2023-02-25] MEDS: levETIRAcetam 500 MG TABLET (FP) PO SCH ×3 (00:18→22:13)
[2023-02-25] MEDS: chlordiazePOXIDE HCL 10 MG CAPSULE PO PRN ×2 (02:21→08:38)
[2023-02-25] MEDS ORDERED: chlordiazePOXIDE HCL 10 MG CAPSULE PO SCH (05:00)
[2023-02-25] MEDS: ALBUTEROL SO4 0.083% IH SOL 2.5 MG/3 ML VIAL.NEB. NEB PRN ×3 (06:21→19:23)
[2023-02-25] MEDS: METHOCARBAMOL 500 MG TABLET PO PRN ×2 (08:38→17:26)
[2023-02-25] MEDS ORDERED: methaDONE HCL 10 MG TABLET (FOR DETOX USE ONLY) PO ONE (10:00)
[2023-02-25] MEDS: PRENATAL VITAMINS W/ FOLIC ACID TABLET (FP) PO SCH (10:08)
[2023-02-25] MEDS: ESCITALOPRAM OXALATE 10 MG TABLET PO SCH (10:08)
[2023-02-25] MEDS: chlordiazePOXIDE HCL 25 MG CAPSULE PO SCH ×3 (10:10→22:13)
[2023-02-25] MEDS: NICOTINE 21 MG/24 HOURS TOPICAL PATCH TD SCH (10:14)
[2023-02-25 12:27] LABS: HEMATOCRIT 41.2 % (35.4-49); MCH 31.9 pg (25.7-33.7); MEAN CELL VOLUME 93.9 fl (80-96); MEAN PLT VOLUME 8.8 fl (7.5-11.1); PLATELET COUNT 276 10^3/uL (134-434); RBC 4.39 M/mm3 (4.00-5.60); RDW 12.9 % (11.9-15.9); WHITE BLOOD COUNT 8.4 K/mm3 (4.0-10.0)
[2023-02-25 12:38] LABS: BILIRUBIN,TOTAL 0.3 mg/dL (0.2-1)
[2023-02-25 12:39] LABS: CREATININE 0.9 mg/dL (0.55-1.3); TOT PROT 6.6 g/dl (6.4-8.2)
[2023-02-25 12:40] LABS: BLOOD UREA NITROGEN 17.4 mg/dL (7-18); CALCIUM 8.7 mg/dL (8.5-10.1)
[2023-02-25 12:47] LABS: ALBUMIN 3.4 g/dl (3.4-5.0)
[2023-02-25] MEDS: chlordiazePOXIDE HCL 25 MG CAPSULE PO PRN ×2 (12:51→19:05)
[2023-02-25] MEDS ORDERED: GABAPENTIN 300 MG CAPSULE PO ONE (15:29)
[2023-02-25] MEDS: NICOTINE POLACRILEX 2 MG GUM BUC PRN (17:40)
[2023-02-25] MEDS: ALBUTEROL SO4 HFA INHALER IH PRN (19:04)
[2023-02-25] MEDS: THIAMINE HCL 100 MG TABLET (FP) PO SCH (22:12)
[2023-02-25] MEDS: GABAPENTIN 300 MG CAPSULE PO SCH (22:12)
[2023-02-25] MEDS: BENZONATATE 200 MG CAPSULE PO PRN (22:15)
[2023-02-26] MEDS: chlordiazePOXIDE HCL 10 MG CAPSULE PO PRN ×3 (03:06→19:04)
[2023-02-26] MEDS: METHOCARBAMOL 500 MG TABLET PO PRN ×3 (03:10→17:28)
[2023-02-26] MEDS: chlordiazePOXIDE HCL 10 MG CAPSULE PO SCH ×4 (04:26→22:01)
[2023-02-26] MEDS: GABAPENTIN 300 MG CAPSULE PO SCH ×2 (10:06→22:01)
[2023-02-26] MEDS: PRENATAL VITAMINS W/ FOLIC ACID TABLET (FP) PO SCH (10:06)
[2023-02-26] MEDS: levETIRAcetam 500 MG TABLET (FP) PO SCH ×2 (10:06→22:02)
[2023-02-26] MEDS: ESCITALOPRAM OXALATE 10 MG TABLET PO SCH (10:06)
[2023-02-26] MEDS: NICOTINE 21 MG/24 HOURS TOPICAL PATCH TD SCH (10:07)
[2023-02-26] MEDS: ALBUTEROL SO4 0.083% IH SOL 2.5 MG/3 ML VIAL.NEB. NEB PRN (16:28)
[2023-02-26] MEDS: THIAMINE HCL 100 MG TABLET (FP) PO SCH (22:01)
[2023-02-27] MEDS: METHOCARBAMOL 500 MG TABLET PO PRN ×2 (03:42→22:11)
[2023-02-27] MEDS: chlordiazePOXIDE HCL 10 MG CAPSULE PO SCH ×2 (04:57→16:04)
[2023-02-27] MEDS ORDERED: methaDONE HCL 10 MG TABLET (FOR DETOX USE ONLY) PO ONE (10:00)
[2023-02-27] MEDS: levETIRAcetam 500 MG TABLET (FP) PO SCH ×2 (10:17→22:45)
[2023-02-27] MEDS: GABAPENTIN 300 MG CAPSULE PO SCH ×2 (10:18→22:10)
[2023-02-27] MEDS: PRENATAL VITAMINS W/ FOLIC ACID TABLET (FP) PO SCH (10:18)
[2023-02-27] MEDS: NICOTINE 21 MG/24 HOURS TOPICAL PATCH TD SCH (10:19)
[2023-02-27] MEDS: ESCITALOPRAM OXALATE 10 MG TABLET PO SCH (10:20)
[2023-02-27] MEDS: ALBUTEROL SO4 0.083% IH SOL 2.5 MG/3 ML VIAL.NEB. NEB PRN ×2 (12:44→22:29)
[2023-02-27] MEDS ORDERED: chlordiazePOXIDE 5 MG CAPSULE PO ONE (13:30)
[2023-02-27] MEDS ORDERED: hydrOXYzine PAMOATE 25 MG CAPSULE (FP) PO ONE (16:30)
[2023-02-27] MEDS: NICOTINE POLACRILEX 2 MG GUM BUC PRN (20:09)
[2023-02-27] MEDS: THIAMINE HCL 100 MG TABLET (FP) PO SCH (22:10)
[2023-02-28] MEDS ORDERED: chlordiazePOXIDE HCL 10 MG CAPSULE PO ONE (05:00)
[2023-02-28 09:30] VITALS: BP 108/65; PULSE 75; RESP 18; TEMP 97.3
[2023-02-28] MEDS: ESCITALOPRAM OXALATE 10 MG TABLET PO SCH (10:27)
[2023-02-28] MEDS: levETIRAcetam 500 MG TABLET (FP) PO SCH (10:27)
[2023-02-28] MEDS: PRENATAL VITAMINS W/ FOLIC ACID TABLET (FP) PO SCH (10:28)
[2023-02-28] MEDS: GABAPENTIN 300 MG CAPSULE PO SCH (10:28)
[2023-02-28] MEDS: NICOTINE 21 MG/24 HOURS TOPICAL PATCH TD SCH (10:28)
== END 2023-02-28 10:35 | disposition home or self-care (01) | DRG 773 ==
LOC: YASAS 05:16 → Y6N 11:31
PROVIDERS: ADMIT Allergy & Immunology; ATTEND Surgery
PROC: HZ2ZZZZ Detoxification Services for Substance Abuse Treatment (ICD-10-PCS; principal; 2023-02-23)
DX: F11.23 Opioid dependence with withdrawal (principal); F10.230 Alcohol dependence with withdrawal, uncomplicated; F13.20 Sedative, hypnotic or anxiolytic dependence, uncomplicated; F14.20 Cocaine dependence, uncomplicated; F12.20 Cannabis dependence, uncomplicated; F17.210 Nicotine dependence, cigarettes, uncomplicated; F19.24 Other psychoactive substance dependence with psychoactive substance-induced mood disorder; G40.909 Epilepsy, unspecified, not intractable, without status epilepticus; Z28.310 Unvaccinated for COVID-19; Z28.9 Immunization not carried out for unspecified reason
CPT/HCPCS: 26055; 36415; 80053; 85027; 86780; 87635; 94640

== ENCOUNTER 2023-03-09 12:17 | Emergency (ER) | payer OTHER ==
[2023-03-09 12:25] VITALS: BP 126/79; PULSE 83; RESP 18; TEMP 98; BMI 25.1
[2023-03-09 13:47] LABS: BASO % 0.8 % (0-2.0); EOS % 1.4 % (0-4.5); HEMATOCRIT 39.6 % (35.4-49); HEMOGLOBIN 13.5 GM/dL (11.7-16.9); LYMPH % 28.2 % (8-40); MONO % 10.8 % (3.8-10.2); NEUT % 58.8 % (42.8-82.8); PLATELET COUNT 240 10^3/uL (134-434); RBC 4.21 M/mm3 (4.00-5.60); RDW 12.6 % (11.9-15.9); WHITE BLOOD COUNT 4.8 K/mm3 (4.0-10.0)
[2023-03-09 13:58] LABS: PH,URINE 7.5 (5.0-8.0); URINE APPEARANCE CLEAR; URINE BILIRUBIN NEGATIVE (NEGATIVE); URINE COLOR YELLOW; URINE GLUCOSE (UA) NEGATIVE (NEGATIVE); URINE KETONE NEGATIVE (NEGATIVE); URINE LEUK ESTERASE NEGATIVE (NEGATIVE); URINE NITRITE NEGATIVE (NEGATIVE); URINE PROTEIN NEGATIVE (NEGATIVE)
[2023-03-09 14:14] LABS: POTASSIUM 4.3 mmol/L (3.5-5.1)
[2023-03-09 14:17] LABS: ALBUMIN 3.5 g/dl (3.4-5.0); BLOOD UREA NITROGEN 9.4 mg/dL (7-18)
[2023-03-09 14:20] LABS: CREATININE 0.7 mg/dL (0.55-1.3)
[2023-03-09 14:22] LABS: BILIRUBIN,TOTAL 0.6 mg/dL (0.2-1); TOT PROT 7.2 g/dl (6.4-8.2)
[2023-03-09] MEDS ORDERED: clonazePAM 2 MG TABLET PO ONE (17:04)
[2023-03-09] MEDS ORDERED: clonazePAM 2 MG TABLET ONE (17:07)
[2023-03-09] MEDS ORDERED: IBUPROFEN 400 MG TABLET (FP) PO ONE (17:16)
== END 2023-03-09 17:10 | disposition home or self-care (01) ==
LOC: JER 12:17
DX: F41.0 Panic disorder [episodic paroxysmal anxiety] (principal); F13.20 Sedative, hypnotic or anxiolytic dependence, uncomplicated
CPT/HCPCS: 36415; 80053; 81003; 84484; 85025; 99283-25

== ENCOUNTER 2023-03-10 03:57 | Emergency (ER) | payer OTHER ==
[2023-03-10 04:03] VITALS: BP 130/80; PULSE 88; RESP 16; TEMP 97.9; BMI 26.4
== END 2023-03-10 06:15 | disposition home or self-care (01) ==
LOC: JER 03:57
DX: F41.9 Anxiety disorder, unspecified (principal); Z76.5 Malingerer [conscious simulation]
CPT/HCPCS: 93005; 93010; 99283-25

== ENCOUNTER 2023-03-24 03:36 | Inpatient (IN) | payer OTHER ==
[2023-03-24 04:19] VITALS: BMI 30.4
[2023-03-24] MEDS ORDERED: BENZOCAINE/MENTHOL (CHLORASEPTIC ) LOZENGE MM PRN (11:53)
[2023-03-24] MEDS ORDERED: MAG HYDROX/AL HYDROX/SIMETH 30 ML UNIT-DOSE CUP PO PRN (11:53)
[2023-03-24] MEDS ORDERED: guaiFENesin 600 MG TABLET.ER (FP) PO PRN (11:53)
[2023-03-24] MEDS ORDERED: LOPERAMIDE HCL 2 MG CAPSULE PO PRN (11:53)
[2023-03-24] MEDS ORDERED: POLYETHYLENE GLYCOL (HEALTHYLAX) 3350 17 GM PACKET PO PRN (11:53)
[2023-03-24] MEDS ORDERED: BENZONATATE 200 MG CAPSULE PO PRN (11:53)
[2023-03-24] MEDS ORDERED: MAGNESIUM HYDROX 2400MG/30ML ORAL SUSPENSION 30 ML CUP PO PRN (11:53)
[2023-03-24] MEDS ORDERED: DICYCLOMINE HCL 10 MG CAPSULE PO PRN (11:53)
[2023-03-24] MEDS ORDERED: cloNIDine HCL 0.1 MG TABLET PO PRN (11:53)
[2023-03-24] MEDS ORDERED: ONDANSETRON *ODT* 4 MG TABLET SL PRN (11:53)
[2023-03-24] MEDS ORDERED: NICOTINE POLACRILEX 2 MG GUM BUC PRN (11:53)
[2023-03-24] MEDS ORDERED: BISMUTH SUBSALICYLATE 524 MG/30 ML PO PRN (11:53)
[2023-03-24] MEDS ORDERED: NALOXONE HCL (KLOXXADO) 8 MG SPRAY NS PRN (11:53)
[2023-03-24] MEDS ORDERED: IBUPROFEN 400 MG TABLET (FP) PO PRN (11:53)
[2023-03-24] MEDS ORDERED: NALOXONE HCL 0.4 MG/ML VIAL IM PRN (11:53)
[2023-03-24] MEDS ORDERED: IBUPROFEN 600 MG TABLET (FP) PO PRN (11:53)
[2023-03-24] MEDS ORDERED: ACETAMINOPHEN 325 MG TABLET (FP) PO PRN (12:15)
[2023-03-24] MEDS: levETIRAcetam 500 MG TABLET (FP) PO SCH ×2 (12:36→22:10)
[2023-03-24] MEDS: diazePAM 5 MG TABLET PO PRN ×2 (12:46→19:32)
[2023-03-24] MEDS ORDERED: methaDONE HCL 10 MG TABLET (FOR DETOX USE ONLY) PO ONE (13:00)
[2023-03-24] MEDS: diazePAM 5 MG TABLET PO SCH ×2 (16:35→22:11)
[2023-03-24] MEDS ORDERED: MELATONIN 5 MG TABLETS PO SCH (22:00)
[2023-03-24] MEDS: THIAMINE HCL 100 MG TABLET (FP) PO SCH (22:10)
[2023-03-25] MEDS: diazePAM 5 MG TABLET PO SCH ×4 (05:44→23:07)
[2023-03-25 10:12] LABS: HEMATOCRIT 40.7 % (35.4-49); HEMOGLOBIN 13.4 GM/dL (11.7-16.9); MCH 31.7 pg (25.7-33.7); MEAN CELL VOLUME 95.8 fl (80-96); MEAN PLT VOLUME 8.6 fl (7.5-11.1); PLATELET COUNT 195 10^3/uL (134-434); RBC 4.25 M/mm3 (4.00-5.60); WHITE BLOOD COUNT 2.7 K/mm3 (4.0-10.0)
[2023-03-25 10:24] LABS: CALCIUM 8.1 mg/dL (8.5-10.1)
[2023-03-25 10:25] LABS: ALBUMIN 3.2 g/dl (3.4-5.0); BLOOD UREA NITROGEN 13.2 mg/dL (7-18)
[2023-03-25 10:28] LABS: CREATININE 0.9 mg/dL (0.55-1.3)
[2023-03-25 10:29] LABS: BILIRUBIN,TOTAL 0.4 mg/dL (0.2-1)
[2023-03-25] MEDS: PRENATAL VITAMINS W/ FOLIC ACID TABLET (FP) PO SCH (10:36)
[2023-03-25] MEDS: levETIRAcetam 500 MG TABLET (FP) PO SCH ×2 (10:38→22:16)
[2023-03-25] MEDS: diazePAM 5 MG TABLET PO PRN ×2 (12:27→19:22)
[2023-03-25] MEDS: GABAPENTIN 300 MG CAPSULE PO SCH ×2 (14:16→22:11)
[2023-03-25] MEDS: ESCITALOPRAM OXALATE 10 MG TABLET PO SCH (14:16)
[2023-03-25] MEDS: METHOCARBAMOL 500 MG TABLET PO PRN (16:30)
[2023-03-25] MEDS: ALBUTEROL SO4 HFA INHALER IH PRN (19:23)
[2023-03-25] MEDS: SUVOREXANT 10 MG TABLET PO PRN (22:12)
[2023-03-25] MEDS: CALCIUM CARBONATE 650 MG TABLET PO SCH (22:13)
[2023-03-25] MEDS: THIAMINE HCL 100 MG TABLET (FP) PO SCH (22:16)
[2023-03-26] MEDS: CALCIUM CARBONATE 650 MG TABLET PO SCH ×3 (00:05→22:03)
[2023-03-26] MEDS: diazePAM 5 MG TABLET PO SCH ×3 (05:31→22:03)
[2023-03-26] MEDS: PRENATAL VITAMINS W/ FOLIC ACID TABLET (FP) PO SCH (09:46)
[2023-03-26] MEDS: ESCITALOPRAM OXALATE 10 MG TABLET PO SCH (09:47)
[2023-03-26] MEDS: GABAPENTIN 300 MG CAPSULE PO SCH ×2 (09:47→22:03)
[2023-03-26] MEDS: METHOCARBAMOL 500 MG TABLET PO PRN ×2 (09:47→17:10)
[2023-03-26] MEDS: diazePAM 5 MG TABLET PO PRN ×2 (09:47→17:10)
[2023-03-26] MEDS: levETIRAcetam 500 MG TABLET (FP) PO SCH ×2 (09:51→22:03)
[2023-03-26] MEDS ORDERED: methaDONE HCL 10 MG TABLET (FOR DETOX USE ONLY) PO ONE (10:00)
[2023-03-26 11:17] LABS: BASO % 0.9 % (0-2.0); EOS % 4.3 % (0-4.5); HEMATOCRIT 40.3 % (35.4-49); HEMOGLOBIN 13.2 GM/dL (11.7-16.9); LYMPH % 49.5 % (8-40); MCH 31.3 pg (25.7-33.7); MCHC 32.8 g/dl (32.0-35.9); MEAN CELL VOLUME 95.5 fl (80-96); MEAN PLT VOLUME 8.9 fl (7.5-11.1); MONO % 12.1 % (3.8-10.2); NEUT % 33.2 % (42.8-82.8); PLATELET COUNT 189 10^3/uL (134-434); RBC 4.22 M/mm3 (4.00-5.60); RDW 13.2 % (11.9-15.9); WHITE BLOOD COUNT 3.5 K/mm3 (4.0-10.0)
[2023-03-26] MEDS: ALBUTEROL SO4 HFA INHALER IH PRN (11:36)
[2023-03-26] MEDS ORDERED: ALBUTEROL SO4 0.083% IH SOL 2.5 MG/3 ML VIAL.NEB. NEB ONE (12:47)
[2023-03-26] MEDS: SUVOREXANT 10 MG TABLET PO PRN (22:03)
[2023-03-26] MEDS: THIAMINE HCL 100 MG TABLET (FP) PO SCH (22:04)
[2023-03-27] MEDS: diazePAM 5 MG TABLET PO PRN ×2 (02:39→10:34)
[2023-03-27] MEDS: diazePAM 5 MG TABLET PO SCH ×2 (05:34→17:21)
[2023-03-27] MEDS: CALCIUM CARBONATE 650 MG TABLET PO SCH ×2 (10:17→22:14)
[2023-03-27] MEDS: levETIRAcetam 500 MG TABLET (FP) PO SCH ×2 (10:18→22:15)
[2023-03-27] MEDS: PRENATAL VITAMINS W/ FOLIC ACID TABLET (FP) PO SCH (10:19)
[2023-03-27] MEDS: GABAPENTIN 300 MG CAPSULE PO SCH ×2 (10:19→22:14)
[2023-03-27] MEDS: ESCITALOPRAM OXALATE 10 MG TABLET PO SCH (10:19)
[2023-03-27] MEDS: METHOCARBAMOL 500 MG TABLET PO PRN (17:20)
[2023-03-27] MEDS: hydrOXYzine PAMOATE 25 MG CAPSULE (FP) PO PRN (20:41)
[2023-03-27] MEDS: SUVOREXANT 10 MG TABLET PO PRN (22:13)
[2023-03-27] MEDS: THIAMINE HCL 100 MG TABLET (FP) PO SCH (22:14)
[2023-03-28] MEDS: hydrOXYzine PAMOATE 25 MG CAPSULE (FP) PO PRN ×3 (05:34→22:51)
[2023-03-28] MEDS: METHOCARBAMOL 500 MG TABLET PO PRN ×3 (05:34→22:51)
[2023-03-28] MEDS ORDERED: diazePAM 5 MG TABLET PO ONE (06:00)
[2023-03-28] MEDS ORDERED: methaDONE HCL 10 MG TABLET (FOR DETOX USE ONLY) PO ONE (10:00)
[2023-03-28] MEDS: GABAPENTIN 300 MG CAPSULE PO SCH ×2 (10:16→22:39)
[2023-03-28] MEDS: PRENATAL VITAMINS W/ FOLIC ACID TABLET (FP) PO SCH (10:17)
[2023-03-28] MEDS: CALCIUM CARBONATE 650 MG TABLET PO SCH ×2 (10:17→22:39)
[2023-03-28] MEDS: levETIRAcetam 500 MG TABLET (FP) PO SCH ×2 (10:17→22:39)
[2023-03-28] MEDS: ESCITALOPRAM OXALATE 10 MG TABLET PO SCH (10:17)
[2023-03-28] MEDS: THIAMINE HCL 100 MG TABLET (FP) PO SCH (22:39)
[2023-03-28] MEDS ORDERED: SUVOREXANT 10 MG TABLET PO ONE (23:00)
[2023-03-29] MEDS: hydrOXYzine PAMOATE 25 MG CAPSULE (FP) PO PRN (05:45)
[2023-03-29] MEDS: METHOCARBAMOL 500 MG TABLET PO PRN (05:46)
[2023-03-29 09:42] VITALS: BP 114/58; PULSE 80; RESP 17; TEMP 97.3
[2023-03-29] MEDS: ESCITALOPRAM OXALATE 10 MG TABLET PO SCH (09:44)
[2023-03-29] MEDS: CALCIUM CARBONATE 650 MG TABLET PO SCH (09:44)
[2023-03-29] MEDS: GABAPENTIN 300 MG CAPSULE PO SCH (09:44)
[2023-03-29] MEDS: levETIRAcetam 500 MG TABLET (FP) PO SCH (09:44)
[2023-03-29] MEDS: PRENATAL VITAMINS W/ FOLIC ACID TABLET (FP) PO SCH (09:44)
== END 2023-03-29 10:42 | disposition home or self-care (01) | DRG 773 ==
LOC: YASAS 03:36 → Y6N 10:27
PROVIDERS: ADMIT Allergy & Immunology; ATTEND Surgery
PROC: HZ2ZZZZ Detoxification Services for Substance Abuse Treatment (ICD-10-PCS; principal; 2023-03-24)
DX: F11.23 Opioid dependence with withdrawal (principal); F10.230 Alcohol dependence with withdrawal, uncomplicated; F13.20 Sedative, hypnotic or anxiolytic dependence, uncomplicated; F17.210 Nicotine dependence, cigarettes, uncomplicated; F19.282 Other psychoactive substance dependence with psychoactive substance-induced sleep disorder; F19.280 Other psychoactive substance dependence with psychoactive substance-induced anxiety disorder; D72.819 Decreased white blood cell count, unspecified; E78.5 Hyperlipidemia, unspecified; E83.51 Hypocalcemia; Z86.59 Personal history of other mental and behavioral disorders; Z28.310 Unvaccinated for COVID-19; Z28.9 Immunization not carried out for unspecified reason
CPT/HCPCS: 36415; 80053; 85025; 85027; 86780; 87635

== ENCOUNTER 2023-08-08 12:22 | Emergency (ER) | payer OTHER ==
[2023-08-08 12:29] VITALS: BP 142/82; PULSE 84; RESP 18; TEMP 98.6; BMI 29.0
[2023-08-08 13:53] LABS: BASO % 0.9 % (0-2.0); EOS % 0.3 % (0-4.5); HEMATOCRIT 39.8 % (35.4-49); HEMOGLOBIN 14.1 GM/dL (11.7-16.9); LYMPH % 34.1 % (8-40); MCH 32.8 pg (25.7-33.7); MCHC 35.3 g/dl (32.0-35.9); MEAN CELL VOLUME 92.8 fl (80-96); MEAN PLT VOLUME 7.8 fl (7.5-11.1); MONO % 7.1 % (3.8-10.2); NEUT % 57.6 % (42.8-82.8); PLATELET COUNT 196 10^3/uL (134-434); RBC 4.29 M/mm3 (4.00-5.60); RDW 12.6 % (11.9-15.9); WHITE BLOOD COUNT 4.6 K/mm3 (4.0-10.0)
[2023-08-08 14:01] LABS: INR 0.91 (0.83-1.09); PROTHROMBIN TIME (PATIENT) 10.6 SEC (9.7-13.0)
[2023-08-08 14:03] LABS: ACTIVATED PTT 32.1 SECONDS (25.2-36.5)
[2023-08-08 14:20] LABS: ALBUMIN 4.2 g/dl (3.4-5.0); BILIRUBIN,TOTAL 0.5 mg/dL (0.2-1); BLOOD UREA NITROGEN 15.3 mg/dL (7-18); CALCIUM 8.9 mg/dL (8.5-10.1); CREATININE 0.9 mg/dL (0.55-1.3); MAGNESIUM 1.9 mg/dL (1.8-2.4); POTASSIUM 4.1 mmol/L (3.5-5.1); TOT PROT 7.5 g/dl (6.4-8.2)
== END 2023-08-08 18:03 | disposition home or self-care (01) ==
LOC: JER 12:22
DX: R07.9 Chest pain, unspecified (principal); R00.2 Palpitations; R06.02 Shortness of breath; R61 Generalized hyperhidrosis; F14.90 Cocaine use, unspecified, uncomplicated; Z20.822 Contact with and (suspected) exposure to COVID-19
CPT/HCPCS: 0241U-QW; 36415; 71046-TC-FY; 80053; 83735; 84484; 85025; 85379; 85610; 85730; 93005; 93010; 99285-25

== ENCOUNTER 2023-08-25 03:24 | Inpatient (IN) | payer OTHER ==
[2023-08-25] MEDS ORDERED: MAGNESIUM HYDROX 2400MG/30ML ORAL SUSPENSION 30 ML CUP PO PRN (03:52)
[2023-08-25] MEDS ORDERED: IBUPROFEN 400 MG TABLET (FP) PO PRN (03:52)
[2023-08-25] MEDS ORDERED: DICYCLOMINE HCL 10 MG CAPSULE PO PRN (03:52)
[2023-08-25] MEDS ORDERED: LOPERAMIDE HCL 2 MG CAPSULE PO PRN (03:52)
[2023-08-25] MEDS ORDERED: ONDANSETRON *ODT* 4 MG TABLET SL PRN (03:52)
[2023-08-25] MEDS ORDERED: POLYETHYLENE GLYCOL (HEALTHYLAX) 3350 17 GM PACKET PO PRN (03:52)
[2023-08-25] MEDS ORDERED: NICOTINE POLACRILEX 4 MG GUM BUC PRN (03:52)
[2023-08-25] MEDS ORDERED: guaiFENesin 600 MG TABLET.ER (FP) PO PRN (03:52)
[2023-08-25] MEDS ORDERED: NALOXONE HCL 0.4 MG/ML VIAL IM PRN (03:52)
[2023-08-25] MEDS ORDERED: BENZONATATE 200 MG CAPSULE PO PRN (03:52)
[2023-08-25] MEDS ORDERED: MAG HYDROX/AL HYDROX/SIMETH 30 ML UNIT-DOSE CUP PO PRN (03:52)
[2023-08-25] MEDS ORDERED: NALOXONE HCL (KLOXXADO) 8 MG SPRAY NS PRN (03:52)
[2023-08-25] MEDS ORDERED: BENZOCAINE/MENTHOL (CHLORASEPTIC ) LOZENGE MM PRN (03:52)
[2023-08-25] MEDS ORDERED: BISMUTH SUBSALICYLATE 524 MG/30 ML PO PRN (03:52)
[2023-08-25 04:20] VITALS: BMI 29.0
[2023-08-25] MEDS: chlordiazePOXIDE HCL 25 MG CAPSULE PO SCH (05:36)
[2023-08-25] MEDS: cloNIDine HCL 0.1 MG TABLET PO PRN (05:36)
[2023-08-25] MEDS: PRENATAL VITAMINS W/ FOLIC ACID TABLET (FP) PO SCH (10:48)
[2023-08-25] MEDS: methaDONE HCL 10 MG TABLET (FOR DETOX USE ONLY) PO ONE (10:48)
[2023-08-25] MEDS: NICOTINE 14 MG/24 HOURS TOPICAL PATCH TD SCH (10:49)
[2023-08-25 10:59] LABS: HEMATOCRIT 42.8 % (35.4-49); HEMOGLOBIN 14.6 GM/dL (11.7-16.9); MCH 32.2 pg (25.7-33.7); MCHC 34.1 g/dl (32.0-35.9); MEAN CELL VOLUME 94.5 fl (80-96); MEAN PLT VOLUME 8.8 fl (7.5-11.1); PLATELET COUNT 250 10^3/uL (134-434); RBC 4.53 M/mm3 (4.00-5.60); RDW 13.1 % (11.9-15.9); WHITE BLOOD COUNT 4.4 K/mm3 (4.0-10.0)
[2023-08-25 11:05] LABS: CHLORIDE 105 mmol/L (98-107); POTASSIUM 4.2 mmol/L (3.5-5.1); SODIUM 140 mmol/L (136-145)
[2023-08-25 11:13] LABS: ANION GAP 4 mmol/L (4-13); BLOOD UREA NITROGEN 10.2 mg/dL (7-18); CALCIUM 9.3 mg/dL (8.5-10.1); CO2 31 mmol/L (21-32)
[2023-08-25 11:14] LABS: ALBUMIN 3.9 g/dl (3.4-5.0); GLUCOSE,RANDOM 94 mg/dL (74-106)
[2023-08-25 11:17] LABS: BILIRUBIN,TOTAL 0.4 mg/dL (0.2-1); CREATININE 0.9 mg/dL (0.55-1.3); SGOT/AST 23 U/L (15-37); SGPT/ALT 32 U/L (13-61)
[2023-08-25 11:18] LABS: TOT PROT 7.2 g/dl (6.4-8.2)
[2023-08-25 11:19] LABS: ALK PHOS 81 U/L (45-117)
[2023-08-25] MEDS: ALBUTEROL SO4 HFA INHALER IH PRN (13:17)
[2023-08-25] MEDS: chlordiazePOXIDE HCL 25 MG CAPSULE PO PRN (13:18)
[2023-08-25] MEDS ORDERED: MELATONIN 5 MG TABLETS PO SCH (22:00)
[2023-08-25] MEDS: THIAMINE HCL 100 MG TABLET (FP) PO SCH (22:22)
[2023-08-26] MEDS: chlordiazePOXIDE HCL 25 MG CAPSULE PO SCH (05:35)
[2023-08-26] MEDS: METHOCARBAMOL 500 MG TABLET PO PRN (05:36)
[2023-08-26] MEDS ORDERED: methaDONE HCL 10 MG TABLET (FOR DETOX USE ONLY) PO ONE (10:00)
[2023-08-26] MEDS: GABAPENTIN 300 MG CAPSULE PO SCH (22:02)
[2023-08-26] MEDS: hydrOXYzine PAMOATE 25 MG CAPSULE (FP) PO PRN (22:03)
[2023-08-26] MEDS: ALBUTEROL SO4 2.5/IPRATROPIUM 0.5 INH SOL 3 ML VIAL.NEB. NEB SCH (22:05)
[2023-08-26] MEDS: QUEtiapine FUMARATE 100 MG TABLET (FP) PO SCH (22:56)
[2023-08-27] MEDS: chlordiazePOXIDE HCL 10 MG CAPSULE PO SCH (05:32)
[2023-08-27] MEDS: methaDONE HCL 10 MG TABLET (FOR DETOX USE ONLY) PO ONE (10:05)
[2023-08-27] MEDS: IBUPROFEN 600 MG TABLET (FP) PO PRN (10:08)
[2023-08-27] MEDS: ESCITALOPRAM OXALATE 20 MG TABLET PO SCH (10:09)
[2023-08-27] MEDS: CLOTRIMAZOLE 1% CREAM TP SCH (11:58)
[2023-08-27] MEDS: chlordiazePOXIDE HCL 10 MG CAPSULE PO PRN (13:49)
[2023-08-28] MEDS: chlordiazePOXIDE HCL 10 MG CAPSULE PO SCH (05:59)
[2023-08-28 12:43] LABS: HIV INTERPRETATION NEGATIVE (NEGATIVE)
[2023-08-28] MEDS: ALBUTEROL SO4 2.5/IPRATROPIUM 0.5 INH SOL 3 ML VIAL.NEB. NEB ONE (18:03)
[2023-08-29] MEDS: chlordiazePOXIDE HCL 10 MG CAPSULE PO ONE (05:04)
[2023-08-29 09:48] VITALS: RESP 18
[2023-08-29] MEDS: ACETAMINOPHEN 325 MG TABLET (FP) PO PRN (10:01)
[2023-08-29 12:59] VITALS: BP 123/82; PULSE 82; TEMP 97.8
== END 2023-08-29 12:52 | disposition other institution (70) | DRG 773 ==
LOC: YASAS 03:24 → Y3N 05:41
PROVIDERS: ADMIT Allergy & Immunology; ATTEND Allergy & Immunology
PROC: HZ2ZZZZ Detoxification Services for Substance Abuse Treatment (ICD-10-PCS; principal; 2023-08-25)
DX: F11.23 Opioid dependence with withdrawal (principal); F10.230 Alcohol dependence with withdrawal, uncomplicated; F14.20 Cocaine dependence, uncomplicated; F12.20 Cannabis dependence, uncomplicated; F17.210 Nicotine dependence, cigarettes, uncomplicated; F31.9 Bipolar disorder, unspecified; F19.24 Other psychoactive substance dependence with psychoactive substance-induced mood disorder; Z28.310 Unvaccinated for COVID-19; Z28.9 Immunization not carried out for unspecified reason; Z91.199 Patient's noncompliance with other medical treatment and regimen due to unspecified reason
CPT/HCPCS: 36415; 80053; 80305; 80307; 85027; 86707; 86780; 87350; 87389; 87635; 87811; 94640

== ENCOUNTER 2023-08-29 13:03 | Inpatient (IN) | payer OTHER ==
[2023-08-29] MEDS ORDERED: MAGNESIUM HYDROX 2400MG/30ML ORAL SUSPENSION 30 ML CUP PO PRN (14:33)
[2023-08-29] MEDS ORDERED: BENZONATATE 200 MG CAPSULE PO PRN (14:33)
[2023-08-29] MEDS ORDERED: NALOXONE HCL 0.4 MG/ML VIAL IVPUSH PRN (14:33)
[2023-08-29] MEDS ORDERED: LOPERAMIDE HCL 2 MG CAPSULE PO PRN (14:33)
[2023-08-29] MEDS ORDERED: BENZOCAINE/MENTHOL (CHLORASEPTIC ) LOZENGE MM PRN (14:33)
[2023-08-29] MEDS ORDERED: hydrOXYzine PAMOATE 25 MG CAPSULE (FP) PO PRN (14:33)
[2023-08-29] MEDS ORDERED: AMMONIUM LACTATE 12% LOTION 225 GM BOTTLE TP PRN (14:33)
[2023-08-29] MEDS ORDERED: NALOXONE (NYS OPIOID OVERDOSE PROGRAM) 4 MG/0.1 ML SPRAY NS PRN (14:33)
[2023-08-29] MEDS ORDERED: guaiFENesin 600 MG TABLET.ER (FP) PO PRN (14:33)
[2023-08-29] MEDS ORDERED: MAG HYDROX/AL HYDROX/SIMETH 30 ML UNIT-DOSE CUP PO PRN (14:33)
[2023-08-29] MEDS ORDERED: POLYETHYLENE GLYCOL (HEALTHYLAX) 3350 17 GM PACKET PO PRN (14:33)
[2023-08-29] MEDS: GABAPENTIN 300 MG CAPSULE PO ONE (15:18)
[2023-08-29] MEDS: ALBUTEROL SO4 2.5/IPRATROPIUM 0.5 INH SOL 3 ML VIAL.NEB. NEB PRN (18:24)
[2023-08-29] MEDS: GABAPENTIN 300 MG CAPSULE PO SCH (21:15)
[2023-08-29] MEDS: THIAMINE HCL 100 MG TABLET (FP) PO SCH (21:15)
[2023-08-29] MEDS: QUEtiapine FUMARATE 100 MG TABLET (FP) PO SCH (21:16)
[2023-08-29] MEDS ORDERED: GABAPENTIN 300 MG CAPSULE PO SCH (22:00)
[2023-08-29] MEDS ORDERED: MELATONIN 5 MG TABLETS PO SCH (22:00)
[2023-08-30] MEDS: ACETAMINOPHEN 325 MG TABLET (FP) PO PRN (00:58)
[2023-08-30] MEDS: ESCITALOPRAM OXALATE 20 MG TABLET PO SCH (09:47)
[2023-08-30] MEDS: PRENATAL VITAMINS W/ FOLIC ACID TABLET (FP) PO SCH (09:48)
[2023-08-30] MEDS: METHOCARBAMOL 500 MG TABLET PO PRN (09:49)
[2023-08-30] MEDS: CLOTRIMAZOLE 1% CREAM TP PRN (09:50)
[2023-08-30] MEDS: ALBUTEROL SO4 HFA INHALER IH PRN (09:51)
[2023-09-02] MEDS ORDERED: ESCITALOPRAM OXALATE 10 MG TABLET ONE (08:45)
[2023-09-02] MEDS ORDERED: DICYCLOMINE HCL 10 MG CAPSULE PO PRN (12:01)
[2023-09-02] MEDS: BENZONATATE 200 MG CAPSULE PO PRN (13:03)
[2023-09-02] MEDS: ALBUTEROL SO4 2.5/IPRATROPIUM 0.5 INH SOL 3 ML VIAL.NEB. NEB PRN (13:30)
[2023-09-03] MEDS: guaiFENesin 600 MG TABLET.ER (FP) PO PRN (06:18)
[2023-09-04] MEDS ORDERED: ESCITALOPRAM OXALATE 10 MG TABLET ONE (08:43)
[2023-09-05] MEDS ORDERED: GABAPENTIN 300 MG CAPSULE PO SCH (14:00)
[2023-09-05] MEDS: METHOCARBAMOL 500 MG TABLET PO PRN (15:59)
[2023-09-05] MEDS: GABAPENTIN 300 MG CAPSULE PO SCH (21:21)
[2023-09-05] MEDS: IBUPROFEN 600 MG TABLET (FP) PO PRN (22:32)
[2023-09-06] MEDS: ESCITALOPRAM OXALATE 20 MG TABLET PO SCH (09:52)
[2023-09-07] MEDS: IBUPROFEN 400 MG TABLET (FP) PO PRN (00:44)
[2023-09-07] MEDS ORDERED: ESCITALOPRAM OXALATE 10 MG TABLET ONE (08:17)
[2023-09-08] MEDS ORDERED: ESCITALOPRAM OXALATE 10 MG TABLET ONE (09:14)
[2023-09-09] MEDS ORDERED: ESCITALOPRAM OXALATE 10 MG TABLET ONE (10:08)
[2023-09-10] MEDS ORDERED: ESCITALOPRAM OXALATE 10 MG TABLET ONE (09:57)
[2023-09-12] MEDS ORDERED: ESCITALOPRAM OXALATE 10 MG TABLET ONE (09:56)
[2023-09-12] MEDS ORDERED: BENZOCAINE 20 % GEL TUBE MM PRN (16:13)
[2023-09-13] MEDS ORDERED: ESCITALOPRAM OXALATE 10 MG TABLET ONE (08:37)
[2023-09-14] MEDS ORDERED: ESCITALOPRAM OXALATE 10 MG TABLET ONE (09:23)
[2023-09-15] MEDS ORDERED: ESCITALOPRAM OXALATE 10 MG TABLET ONE (09:00)
[2023-09-16 07:22] VITALS: BP 129/86; PULSE 67; RESP 18; TEMP 96.3
[2023-09-16] MEDS ORDERED: ESCITALOPRAM OXALATE 10 MG TABLET ONE (09:34)
== END 2023-09-16 14:56 | disposition home or self-care (01) | DRG 772 ==
LOC: YASAS 13:03 → Y3E 13:05
PROVIDERS: ADMIT Allergy & Immunology; ATTEND Psychiatry & Neurology Pain Medicine
PROC: HZ42ZZZ Group Counseling for Substance Abuse Treatment, Cognitive-Behavioral (ICD-10-PCS; principal; 2023-08-29)
DX: F11.20 Opioid dependence, uncomplicated (principal); F10.20 Alcohol dependence, uncomplicated; F14.20 Cocaine dependence, uncomplicated; F17.210 Nicotine dependence, cigarettes, uncomplicated; F31.9 Bipolar disorder, unspecified; F41.9 Anxiety disorder, unspecified; E78.5 Hyperlipidemia, unspecified; J41.0 Simple chronic bronchitis; J45.909 Unspecified asthma, uncomplicated; B00.2 Herpesviral gingivostomatitis and pharyngotonsillitis
CPT/HCPCS: 0241U-QW; 36415; 80177; 86695; 86696; 94640

== ENCOUNTER 2023-10-12 03:12 | Inpatient (IN) | payer OTHER ==
[2023-10-12 03:44] VITALS: BMI 28.5
[2023-10-12] MEDS ORDERED: MAG HYDROX/AL HYDROX/SIMETH 30 ML UNIT-DOSE CUP PO PRN (05:52)
[2023-10-12] MEDS ORDERED: LOPERAMIDE HCL 2 MG CAPSULE PO PRN (05:52)
[2023-10-12] MEDS ORDERED: NALOXONE HCL (KLOXXADO) 8 MG SPRAY NS PRN (05:52)
[2023-10-12] MEDS ORDERED: hydrOXYzine PAMOATE 25 MG CAPSULE (FP) PO PRN (05:52)
[2023-10-12] MEDS ORDERED: METHOCARBAMOL 500 MG TABLET PO PRN (05:52)
[2023-10-12] MEDS ORDERED: ONDANSETRON *ODT* 4 MG TABLET SL PRN (05:52)
[2023-10-12] MEDS ORDERED: POLYETHYLENE GLYCOL (HEALTHYLAX) 3350 17 GM PACKET PO PRN (05:52)
[2023-10-12] MEDS ORDERED: ACETAMINOPHEN 325 MG TABLET (FP) PO PRN (05:52)
[2023-10-12] MEDS ORDERED: BISMUTH SUBSALICYLATE 524 MG/30 ML PO PRN (05:52)
[2023-10-12] MEDS ORDERED: MAGNESIUM HYDROX 2400MG/30ML ORAL SUSPENSION 30 ML CUP PO PRN (05:52)
[2023-10-12] MEDS ORDERED: BENZONATATE 200 MG CAPSULE PO PRN (05:52)
[2023-10-12] MEDS ORDERED: BENZOCAINE/MENTHOL (CHLORASEPTIC ) LOZENGE MM PRN (05:52)
[2023-10-12] MEDS ORDERED: DICYCLOMINE HCL 10 MG CAPSULE PO PRN (05:52)
[2023-10-12] MEDS ORDERED: IBUPROFEN 400 MG TABLET (FP) PO PRN (05:52)
[2023-10-12] MEDS ORDERED: IBUPROFEN 600 MG TABLET (FP) PO PRN (05:52)
[2023-10-12] MEDS ORDERED: NALOXONE HCL 0.4 MG/ML VIAL IM PRN (05:52)
[2023-10-12] MEDS: methaDONE HCL 10 MG TABLET (FOR DETOX USE ONLY) PO ONE (06:52)
[2023-10-12] MEDS: cloNIDine HCL 0.1 MG TABLET PO PRN (06:57)
[2023-10-12] MEDS: levETIRAcetam 500 MG TABLET (FP) PO SCH (09:41)
[2023-10-12] MEDS: PRENATAL VITAMINS W/ FOLIC ACID TABLET (FP) PO SCH (09:41)
[2023-10-12] MEDS: diazePAM 5 MG TABLET PO PRN (15:17)
[2023-10-12] MEDS: diazePAM 5 MG TABLET PO SCH (17:29)
[2023-10-12] MEDS ORDERED: ALBUTEROL SO4 HFA INHALER IH PRN (19:26)
[2023-10-12] MEDS: MELATONIN 5 MG TABLETS PO SCH (22:30)
[2023-10-12] MEDS: THIAMINE 100 MG TABLET PO SCH (22:33)
[2023-10-13 10:55] LABS: HEMATOCRIT 43.2 % (35.4-49); HEMOGLOBIN 14.5 GM/dL (11.7-16.9); MCH 32.1 pg (25.7-33.7); MCHC 33.6 g/dl (32.0-35.9); MEAN CELL VOLUME 95.4 fl (80-96); MEAN PLT VOLUME 8.5 fl (7.5-11.1); PLATELET COUNT 238 10^3/uL (134-434); RBC 4.53 M/mm3 (4.00-5.60); RDW 13.8 % (11.9-15.9); WHITE BLOOD COUNT 3.3 K/mm3 (4.0-10.0)
[2023-10-13 11:13] LABS: POTASSIUM 4.3 mmol/L (3.5-5.1)
[2023-10-13 11:19] LABS: CALCIUM 9.2 mg/dL (8.5-10.1)
[2023-10-13 11:20] LABS: ALBUMIN 3.4 g/dl (3.4-5.0)
[2023-10-13 11:23] LABS: CREATININE 0.8 mg/dL (0.55-1.3)
[2023-10-13 11:24] LABS: BILIRUBIN,TOTAL 0.5 mg/dL (0.2-1); TOT PROT 6.7 g/dl (6.4-8.2)
[2023-10-13] MEDS: predniSONE 20 MG TABLET (UD) PO SCH (11:40)
[2023-10-13] MEDS: ALBUTEROL SO4 2.5/IPRATROPIUM 0.5 INH SOL 3 ML VIAL.NEB. NEB ONE (11:42)
[2023-10-14] MEDS: diazePAM 5 MG TABLET PO SCH (06:06)
[2023-10-14] MEDS: guaiFENesin 600 MG TABLET.ER (FP) PO PRN (06:07)
[2023-10-14] MEDS ORDERED: guaiFENesin 200 MG/10 ML 10 ML UNIT-DOSE CUPS PO PRN (09:03)
[2023-10-14] MEDS: AMOX TR/POT CLAV 875MG/125MG TABLETS (FP) PO SCH (09:54)
[2023-10-14] MEDS: chlordiazePOXIDE HCL 10 MG CAPSULE PO SCH (09:59)
[2023-10-14] MEDS: methaDONE HCL 10 MG TABLET (FOR DETOX USE ONLY) PO ONE (09:59)
[2023-10-14] MEDS: P-EPHED 60MG/TRIPROLIDI 2.5MG TABLET PO PRN (11:22)
[2023-10-14] MEDS: ALBUTEROL SO4 2.5/IPRATROPIUM 0.5 INH SOL 3 ML VIAL.NEB. NEB SCH (11:45)
[2023-10-14 12:52] VITALS: RESP 18
[2023-10-14] MEDS: chlordiazePOXIDE HCL 25 MG CAPSULE PO PRN (14:10)
[2023-10-14 17:40] VITALS: BP 145/89; PULSE 85; TEMP 98
[2023-10-15] MEDS ORDERED: chlordiazePOXIDE HCL 10 MG CAPSULE PO SCH (05:00)
[2023-10-15] MEDS ORDERED: diazePAM 5 MG TABLET PO SCH (06:00)
[2023-10-16] MEDS ORDERED: chlordiazePOXIDE HCL 10 MG CAPSULE PO ONE (05:00)
[2023-10-16] MEDS ORDERED: diazePAM 5 MG TABLET PO ONE (06:00)
[2023-10-16] MEDS ORDERED: methaDONE HCL 10 MG TABLET (FOR DETOX USE ONLY) PO ONE (10:00)
== END 2023-10-14 17:58 | disposition left against medical advice (07) | DRG 770 ==
LOC: YASAS 03:12 → Y3N 05:19
PROVIDERS: ADMIT Allergy & Immunology; ATTEND Allergy & Immunology
PROC: HZ2ZZZZ Detoxification Services for Substance Abuse Treatment (ICD-10-PCS; principal; 2023-10-12)
DX: F11.23 Opioid dependence with withdrawal (principal); F10.230 Alcohol dependence with withdrawal, uncomplicated; F14.20 Cocaine dependence, uncomplicated; F12.20 Cannabis dependence, uncomplicated; F17.210 Nicotine dependence, cigarettes, uncomplicated; F19.24 Other psychoactive substance dependence with psychoactive substance-induced mood disorder; G40.909 Epilepsy, unspecified, not intractable, without status epilepticus; J02.9 Acute pharyngitis, unspecified; J45.909 Unspecified asthma, uncomplicated; Z86.59 Personal history of other mental and behavioral disorders; Z28.310 Unvaccinated for COVID-19; Z28.9 Immunization not carried out for unspecified reason
CPT/HCPCS: 36415; 71046-TC-FY; 80053; 80305; 80307; 85027; 86780; 93005; 93010; 94640

== ENCOUNTER 2023-11-16 03:06 | Inpatient (IN) | payer OTHER ==
[2023-11-16] MEDS ORDERED: ACETAMINOPHEN INJECTION 100 ML IVPB ONE (03:49)
[2023-11-16] MEDS ORDERED: methylPREDNISolone NA SUCC 125 MG/2 ML VIAL ONE (03:50)
[2023-11-16] MEDS: ACETAMINOPHEN 1000 MG/100 ML BAG IVPB ONE (04:11)
[2023-11-16] MEDS: methylPREDNISolone NA SUCC 125 MG/2 ML VIAL IVPUSH ONE (04:12)
[2023-11-16] MEDS: ALBUTEROL SO4 2.5/IPRATROPIUM 0.5 INH SOL 3 ML VIAL.NEB. NEB SCH (04:13)
[2023-11-16 04:18] LABS: VENOUS BASE EXCESS 4.2 mmol/L (-2-2); VENOUS O2 SATURATION 74.2 % (70-80); VENOUS PCO2 49.8 mmHg (38-52); VENOUS PH 7.399 (7.310-7.410)
[2023-11-16 04:19] LABS: BASO % 0.3 % (0-2.0); EOS % 0.1 % (0-4.5); HEMATOCRIT 40.1 % (35.4-49); HEMOGLOBIN 13.9 GM/dL (11.7-16.9); LYMPH % 8.1 % (8-40); MCHC 34.6 g/dl (32.0-35.9); MEAN CELL VOLUME 92.6 fl (80-96); MEAN PLT VOLUME 8.1 fl (7.5-11.1); MONO % 10.3 % (3.8-10.2); NEUT % 81.2 % (42.8-82.8); PLATELET COUNT 241 10^3/uL (134-434); RBC 4.33 M/mm3 (4.00-5.60); RDW 13.6 % (11.9-15.9); WHITE BLOOD COUNT 11.5 K/mm3 (4.0-10.0)
[2023-11-16 04:32] LABS: INR 1.22 (0.83-1.09); PROTHROMBIN TIME (PATIENT) 13.7 SEC (9.7-13.0)
[2023-11-16 04:34] LABS: ACTIVATED PTT 34.8 SECONDS (25.2-36.5)
[2023-11-16 04:37] LABS: POTASSIUM 3.9 mmol/L (3.5-5.1)
[2023-11-16 04:39] LABS: CALCIUM 8.9 mg/dL (8.5-10.1)
[2023-11-16 04:40] LABS: ALBUMIN 3.3 g/dl (3.4-5.0); BLOOD UREA NITROGEN 12.1 mg/dL (7-18)
[2023-11-16 04:43] LABS: CREATININE 0.8 mg/dL (0.55-1.3)
[2023-11-16 04:44] LABS: BILIRUBIN,TOTAL 0.7 mg/dL (0.2-1); TOT PROT 6.9 g/dl (6.4-8.2)
[2023-11-16] MEDS ORDERED: AZITHROMYCIN 500 MG TABLET ONE (06:11)
[2023-11-16] MEDS: AZITHROMYCIN 250 MG TABLET PO ONE (06:16)
[2023-11-16] MEDS: SODIUM CHLORIDE 500 ML IV STA (07:04)
[2023-11-16] MEDS ORDERED: KETOROLAC TROMETHAMINE 15 MG/ML VIAL ONE (07:17)
[2023-11-16] MEDS: KETOROLAC TROMETHAMINE 15 MG/ML VIAL IVPUSH ONE (07:21)
[2023-11-16 11:57] VITALS: BMI 24.7
[2023-11-16] MEDS ORDERED: ONDANSETRON 4 MG/2 ML VIAL IVPUSH PRN (12:41)
[2023-11-16] MEDS: cloNIDine HCL 0.1 MG TABLET PO SCH (13:28)
[2023-11-16] MEDS: DEXTROSE 5%-0.45% SALINE 1,000 ML IV SCH (18:14)
[2023-11-16] MEDS: levETIRAcetam 500 MG TABLET (FP) PO SCH (18:14)
[2023-11-16] MEDS: ESCITALOPRAM OXALATE 20 MG TABLET PO SCH (18:17)
[2023-11-16] MEDS: GABAPENTIN 300 MG CAPSULE PO SCH (18:17)
[2023-11-16] MEDS: CEFTRIAXONE 1 GM in DEXTROSE 5%-WATER - 50 ML IVPB SCH (18:18)
[2023-11-16] MEDS: methaDONE HCL 10 MG TABLET PO SCH (18:18)
[2023-11-16] MEDS: methylPREDNISolone NA SUCC 40 MG/1 ML VIAL IVPUSH SCH (18:18)
[2023-11-16] MEDS: PIPERACILLIN/TAZOB 3.375 GM 3.375 GM in DEXTROSE 5%-WATER - 50 ML IVPB SCH (18:18)
[2023-11-16] MEDS ORDERED: diazePAM 5 MG TABLET PO PRN (19:04)
[2023-11-16] MEDS ORDERED: ALBUTEROL SO4 HFA INHALER IH PRN (19:09)
[2023-11-16] MEDS: methaDONE HCL 10 MG TABLET PO ONE (19:55)
[2023-11-16] MEDS: chlordiazePOXIDE HCL 25 MG CAPSULE PO PRN (19:58)
[2023-11-16 20:00] LABS: COCAINE, UR POSITIVE (NEGATIVE); METHADONE, UR POSITIVE (NEGATIVE); OPIATES, URI POSITIVE (NEGATIVE); PHENCYCLIDINE,URINE NEGATIVE (NEGATIVE); URINE AMPHETAMINES NEGATIVE (NEGATIVE); URINE BARBITURATES NEGATIVE (NEGATIVE); URINE BENZODIAZEPINES NEGATIVE (NEGATIVE)
[2023-11-16] MEDS ORDERED: cloNIDine HCL 0.1 MG TABLET PO SCH (22:00)
[2023-11-16] MEDS: chlordiazePOXIDE HCL 25 MG CAPSULE PO SCH (22:33)
[2023-11-16] MEDS ORDERED: diazePAM 5 MG TABLET PO SCH (23:00)
[2023-11-17] MEDS: ALBUTEROL SO4 2.5/IPRATROPIUM 0.5 INH SOL 3 ML VIAL.NEB. NEB PRN (05:41)
[2023-11-17 08:57] LABS: HEMATOCRIT 39.3 % (35.4-49); HEMOGLOBIN 13.2 GM/dL (11.7-16.9); MCH 31.5 pg (25.7-33.7); MCHC 33.6 g/dl (32.0-35.9); MEAN CELL VOLUME 93.6 fl (80-96); MEAN PLT VOLUME 8.6 fl (7.5-11.1); PLATELET COUNT 266 10^3/uL (134-434); RDW 13.5 % (11.9-15.9); WHITE BLOOD COUNT 11.1 K/mm3 (4.0-10.0)
[2023-11-17 09:09] LABS: POTASSIUM 4.9 mmol/L (3.5-5.1)
[2023-11-17 09:12] LABS: CALCIUM 9.2 mg/dL (8.5-10.1)
[2023-11-17 09:16] LABS: BLOOD UREA NITROGEN 15.9 mg/dL (7-18)
[2023-11-17 09:18] LABS: BILIRUBIN,TOTAL 0.4 mg/dL (0.2-1); CREATININE 0.7 mg/dL (0.55-1.3)
[2023-11-17 09:21] LABS: TOT PROT 6.8 g/dl (6.4-8.2)
[2023-11-17] MEDS ORDERED: AZITHROMYCIN IVPB 250 MG in DEXTROSE 5%-WATER - 250 ML IVPB SCH (10:00)
[2023-11-17] MEDS: ACETAMINOPHEN 1000 MG/100 ML BAG IVPB PRN (10:19)
[2023-11-17] MEDS: cloNIDine HCL 0.1 MG TABLET PO PRN (10:27)
[2023-11-17] MEDS: ENOXAPARIN NA (PORCINE) 40 MG/0.4 ML DISP.SYRIN SQ SCH (10:31)
[2023-11-17 11:25] LABS: ANISOCYTOSIS 0; HELMET CELLS 0; HOWELL-JOLLY BODIES 0; MACROCYTOSIS 0; OVALOCYTE 0; ROULEAU 0; SICKELED CELLS 0; TARGET CELLS 0; TEAR DROP CELLS 0; TOXIC GRANULATION 0
[2023-11-18] MEDS: chlordiazePOXIDE HCL 25 MG CAPSULE PO SCH (02:53)
[2023-11-18] MEDS: ALBUTEROL SO4 0.083% IH SOL 2.5 MG/3 ML VIAL.NEB. NEB PRN (03:09)
[2023-11-18] MEDS ORDERED: chlordiazePOXIDE HCL 25 MG CAPSULE PO SCH (05:00)
[2023-11-18] MEDS ORDERED: diazePAM 5 MG TABLET PO SCH (06:00)
[2023-11-18 09:29] LABS: N-TERMINAL BNP 258.1 pg/ml (5-125)
[2023-11-18] MEDS: methaDONE HCL 10 MG TABLET PO ONE (10:07)
[2023-11-18 14:59] VITALS: RESP 18
[2023-11-18] MEDS: chlordiazePOXIDE HCL 10 MG CAPSULE PO PRN (19:28)
[2023-11-18] MEDS: chlordiazePOXIDE HCL 25 MG CAPSULE PO PRN (22:19)
[2023-11-19] MEDS ORDERED: chlordiazePOXIDE HCL 10 MG CAPSULE PO PRN
[2023-11-19] MEDS: LORazepam 2 MG/ML SDV VIAL IVPUSH ONE (03:27)
[2023-11-19] MEDS: chlordiazePOXIDE HCL 10 MG CAPSULE PO SCH (05:45)
[2023-11-19] MEDS ORDERED: diazePAM 5 MG TABLET PO SCH (06:00)
[2023-11-19 06:40] LABS: HEMATOCRIT 39.3 % (35.4-49); HEMOGLOBIN 13.1 GM/dL (11.7-16.9); MCH 31.1 pg (25.7-33.7); MCHC 33.3 g/dl (32.0-35.9); MEAN CELL VOLUME 93.6 fl (80-96); MEAN PLT VOLUME 8.5 fl (7.5-11.1); PLATELET COUNT 337 10^3/uL (134-434); RDW 13.9 % (11.9-15.9); WHITE BLOOD COUNT 18.4 K/mm3 (4.0-10.0)
[2023-11-19 06:51] LABS: POTASSIUM 3.8 mmol/L (3.5-5.1)
[2023-11-19 06:54] LABS: CALCIUM 9.2 mg/dL (8.5-10.1)
[2023-11-19 06:55] LABS: ALBUMIN 3.1 g/dl (3.4-5.0); BLOOD UREA NITROGEN 17.6 mg/dL (7-18)
[2023-11-19 06:58] LABS: CREATININE 0.8 mg/dL (0.55-1.3)
[2023-11-19 06:59] LABS: BILIRUBIN,TOTAL 0.4 mg/dL (0.2-1)
[2023-11-19 07:00] LABS: TOT PROT 6.6 g/dl (6.4-8.2)
[2023-11-19 08:34] LABS: ANISOCYTOSIS 1+; MACROCYTOSIS 0
[2023-11-19] MEDS: ESCITALOPRAM OXALATE 20 MG TABLET PO SCH (11:00)
[2023-11-19] MEDS: ALBUTEROL SO4 2.5/IPRATROPIUM 0.5 INH SOL 3 ML VIAL.NEB. NEB SCH (12:45)
[2023-11-19] MEDS: cloNIDine HCL 0.1 MG TABLET PO PRN (15:21)
[2023-11-19] MEDS: BUDESONIDE/FORMETEROL FUMARATE 160/4.5 mcg INHALER IH SCH (15:24)
[2023-11-20] MEDS: chlordiazePOXIDE HCL 10 MG CAPSULE PO SCH (05:45)
[2023-11-20] MEDS ORDERED: diazePAM 5 MG TABLET PO ONE (06:00)
[2023-11-20] MEDS: methaDONE HCL 10 MG TABLET PO ONE (11:14)
[2023-11-20] MEDS: AZITHROMYCIN IVPB 500 MG/250 ML BAG IVPB SCH (15:09)
[2023-11-21] MEDS ORDERED: chlordiazePOXIDE 5 MG CAPSULE ONE (02:05)
[2023-11-21] MEDS: chlordiazePOXIDE HCL 10 MG CAPSULE PO ONE (05:31)
[2023-11-21] MEDS: POLYETHYLENE GLYCOL (HEALTHYLAX) 3350 17 GM PACKET PO PRN (22:39)
[2023-11-21] MEDS: chlordiazePOXIDE HCL 25 MG CAPSULE PO ONE (22:39)
[2023-11-22] MEDS: methylPREDNISolone NA SUCC 40 MG/1 ML VIAL IVPUSH SCH (10:40)
[2023-11-22] MEDS: chlordiazePOXIDE 5 MG CAPSULE PO ONE ×2 (14:05→14:14)
[2023-11-22 15:14] VITALS: BP 104/53; PULSE 74; TEMP 97.9
[2023-11-22] MEDS ORDERED: ATORVASTATIN CA 40 MG TABLET (FP) PO SCH (22:00)
== END 2023-11-22 17:59 | disposition home or self-care (01) | DRG 140 ==
LOC: JER 03:06 → JERBED 09:35 → J7W 11:21 → OBSVTOIN 12:40
PROVIDERS: ADMIT Internal Medicine; ATTEND Internal Medicine
PROC: HZ2ZZZZ Detoxification Services for Substance Abuse Treatment (ICD-10-PCS; principal; 2023-11-16)
DX: J44.1 Chronic obstructive pulmonary disease with (acute) exacerbation (principal); J45.901 Unspecified asthma with (acute) exacerbation; E78.5 Hyperlipidemia, unspecified; J20.9 Acute bronchitis, unspecified; F31.9 Bipolar disorder, unspecified; R07.89 Other chest pain; F14.20 Cocaine dependence, uncomplicated; F12.10 Cannabis abuse, uncomplicated; F11.20 Opioid dependence, uncomplicated; F10.239 Alcohol dependence with withdrawal, unspecified; F19.10 Other psychoactive substance abuse, uncomplicated; F90.9 Attention-deficit hyperactivity disorder, unspecified type; F17.210 Nicotine dependence, cigarettes, uncomplicated; F43.10 Post-traumatic stress disorder, unspecified; Z59.00 Homelessness unspecified
CPT/HCPCS: 0241U-QW; 36415; 71045-TC-FY; 71250-TC; 78452-TC; 80053; 80061; 80307; 82803; 83036; 83880; 84439; 84443; 84484; 85025; 85610; 85730; 87070; 87205; 87651; 93005; 93010; 93017; 93306-TC; 94640; 99285-25; A9502; G0378; J0131

== ENCOUNTER 2023-12-01 00:39 | Inpatient (IN) | payer OTHER ==
[2023-12-01] MEDS ORDERED: MAG HYDROX/AL HYDROX/SIMETH 30 ML UNIT-DOSE CUP PO PRN (01:35)
[2023-12-01] MEDS ORDERED: LOPERAMIDE HCL 2 MG CAPSULE PO PRN (01:35)
[2023-12-01] MEDS ORDERED: DICYCLOMINE HCL 10 MG CAPSULE PO PRN (01:35)
[2023-12-01] MEDS ORDERED: guaiFENesin 600 MG TABLET.ER (FP) PO PRN (01:35)
[2023-12-01] MEDS ORDERED: BENZOCAINE/MENTHOL (CHLORASEPTIC ) LOZENGE MM PRN (01:35)
[2023-12-01] MEDS ORDERED: BENZONATATE 200 MG CAPSULE PO PRN (01:35)
[2023-12-01] MEDS ORDERED: ACETAMINOPHEN 325 MG TABLET (FP) PO PRN (01:35)
[2023-12-01] MEDS ORDERED: NALOXONE (NARCAN) HCL 4 MG/0.1 ML SPRAY NS PRN (01:35)
[2023-12-01] MEDS ORDERED: POLYETHYLENE GLYCOL (HEALTHYLAX) 3350 17 GM PACKET PO PRN (01:35)
[2023-12-01] MEDS ORDERED: ONDANSETRON *ODT* 4 MG TABLET SL PRN (01:35)
[2023-12-01] MEDS ORDERED: IBUPROFEN 600 MG TABLET (FP) PO PRN (01:35)
[2023-12-01] MEDS ORDERED: NALOXONE HCL 0.4 MG/ML VIAL IM PRN (01:35)
[2023-12-01] MEDS ORDERED: MAGNESIUM HYDROX 2400MG/30ML ORAL SUSPENSION 30 ML CUP PO PRN (01:35)
[2023-12-01] MEDS ORDERED: NICOTINE POLACRILEX 2 MG GUM BUC PRN (01:35)
[2023-12-01] MEDS ORDERED: IBUPROFEN 400 MG TABLET (FP) PO PRN (01:35)
[2023-12-01] MEDS ORDERED: BISMUTH SUBSALICYLATE 524 MG/30 ML PO PRN (01:35)
[2023-12-01] MEDS ORDERED: hydrOXYzine PAMOATE 25 MG CAPSULE (FP) PO PRN (01:35)
[2023-12-01 02:01] VITALS: BMI 24.1
[2023-12-01] MEDS: NICOTINE 14 MG/24 HOURS TOPICAL PATCH TD SCH (10:13)
[2023-12-01] MEDS: PRENATAL VITAMINS W/ FOLIC ACID TABLET (FP) PO SCH (10:13)
[2023-12-01 10:32] LABS: CHLORIDE 107 mmol/L (98-107); POTASSIUM 3.8 mmol/L (3.5-5.1); SODIUM 141 mmol/L (136-145)
[2023-12-01 10:34] LABS: CALCIUM 8.6 mg/dL (8.5-10.1)
[2023-12-01 10:35] LABS: ALBUMIN 3.2 g/dl (3.4-5.0); ANION GAP 3 mmol/L (4-13); BLOOD UREA NITROGEN 22.2 mg/dL (7-18); CO2 31 mmol/L (21-32); GLUCOSE,RANDOM 76 mg/dL (74-106); HEMATOCRIT 39.3 % (35.4-49); MCH 31.5 pg (25.7-33.7); MCHC 33.1 g/dl (32.0-35.9); MEAN CELL VOLUME 95.2 fl (80-96); MEAN PLT VOLUME 8.1 fl (7.5-11.1); PLATELET COUNT 237 10^3/uL (134-434); RBC 4.12 M/mm3 (4.00-5.60); RDW 13.9 % (11.9-15.9); WHITE BLOOD COUNT 4.3 K/mm3 (4.0-10.0)
[2023-12-01 10:38] LABS: CREATININE 0.8 mg/dL (0.55-1.3); SGOT/AST 16 U/L (15-37); SGPT/ALT 25 U/L (13-61)
[2023-12-01 10:40] LABS: BILIRUBIN,TOTAL 0.5 mg/dL (0.2-1)
[2023-12-01 10:41] LABS: ALK PHOS 84 U/L (45-117)
[2023-12-01] MEDS ORDERED: methaDONE HCL 10 MG TABLET (FOR DETOX USE ONLY) PO ONE (12:00)
[2023-12-01] MEDS: chlordiazePOXIDE HCL 25 MG CAPSULE PO SCH (13:05)
[2023-12-01] MEDS: methaDONE HCL 10 MG TABLET (FOR DETOX USE ONLY) PO ONE (13:13)
[2023-12-01] MEDS: THIAMINE 100 MG TABLET PO SCH (22:14)
[2023-12-01] MEDS: ALBUTEROL SO4 HFA INHALER IH PRN (22:16)
[2023-12-01] MEDS: cloNIDine HCL 0.1 MG TABLET PO PRN (22:18)
[2023-12-02] MEDS: chlordiazePOXIDE HCL 25 MG CAPSULE PO PRN (00:34)
[2023-12-02] MEDS: chlordiazePOXIDE HCL 25 MG CAPSULE PO SCH (04:10)
[2023-12-02] MEDS: BUDESONIDE/FORMETEROL FUMARATE 160/4.5 mcg INHALER IH SCH (14:55)
[2023-12-02] MEDS: ATORVASTATIN CA 40 MG TABLET (FP) PO SCH (22:27)
[2023-12-02] MEDS: QUEtiapine FUMARATE 100 MG TABLET (FP) PO SCH (22:27)
[2023-12-02] MEDS: GABAPENTIN 300 MG CAPSULE PO SCH (22:27)
[2023-12-03] MEDS: chlordiazePOXIDE HCL 10 MG CAPSULE PO SCH (05:29)
[2023-12-03 09:49] VITALS: RESP 18
[2023-12-03] MEDS: methaDONE HCL 10 MG TABLET (FOR DETOX USE ONLY) PO ONE (10:17)
[2023-12-03] MEDS: BACITRACIN 0.9 GM PACKET TP SCH (10:17)
[2023-12-03 16:53] VITALS: BP 122/68; PULSE 77; TEMP 98.8
[2023-12-04] MEDS ORDERED: chlordiazePOXIDE HCL 10 MG CAPSULE PO PRN
[2023-12-04] MEDS ORDERED: chlordiazePOXIDE HCL 10 MG CAPSULE PO SCH (05:00)
[2023-12-05] MEDS ORDERED: chlordiazePOXIDE HCL 10 MG CAPSULE PO ONE (05:00)
[2023-12-05] MEDS ORDERED: methaDONE HCL 10 MG TABLET (FOR DETOX USE ONLY) PO ONE (10:00)
== END 2023-12-03 17:20 | disposition home or self-care (01) | DRG 773 ==
LOC: YASAS 00:39 → Y3N 02:00
PROVIDERS: ADMIT Allergy & Immunology; ATTEND Surgery
PROC: HZ2ZZZZ Detoxification Services for Substance Abuse Treatment (ICD-10-PCS; principal; 2023-12-01)
DX: F11.23 Opioid dependence with withdrawal (principal); F10.230 Alcohol dependence with withdrawal, uncomplicated; F14.20 Cocaine dependence, uncomplicated; F12.20 Cannabis dependence, uncomplicated; F17.210 Nicotine dependence, cigarettes, uncomplicated; F31.9 Bipolar disorder, unspecified; F19.24 Other psychoactive substance dependence with psychoactive substance-induced mood disorder; E78.5 Hyperlipidemia, unspecified; J45.909 Unspecified asthma, uncomplicated; F91.8 Other conduct disorders; Z91.199 Patient's noncompliance with other medical treatment and regimen due to unspecified reason
CPT/HCPCS: 36415; 80053; 80305; 80307; 85027; 86780

== ENCOUNTER 2023-12-20 19:43 | Inpatient (IN) | payer OTHER ==
[2023-12-20] MEDS ORDERED: ACETAMINOPHEN INJECTION 100 ML IVPB ONE (20:53)
[2023-12-20] MEDS ORDERED: ALBUTEROL SO4 2.5/IPRATROPIUM 0.5 INH SOL 3 ML VIAL.NEB. NEB ONE (20:53)
[2023-12-20 21:33] LABS: BASO % 0.1 % (0-2.0); HEMATOCRIT 40.8 % (35.4-49); HEMOGLOBIN 13.7 GM/dL (11.7-16.9); LYMPH % 5.4 % (8-40); MCH 30.6 pg (25.7-33.7); MCHC 33.7 g/dl (32.0-35.9); MEAN PLT VOLUME 7.9 fl (7.5-11.1); MONO % 7.3 % (3.8-10.2); NEUT % 87.2 % (42.8-82.8); PLATELET COUNT 209 10^3/uL (134-434); RBC 4.48 M/mm3 (4.00-5.60); RDW 14.3 % (11.9-15.9); WHITE BLOOD COUNT 20.5 K/mm3 (4.0-10.0)
[2023-12-20 21:37] LABS: VENOUS BASE EXCESS 3.6 mmol/L (-2-2); VENOUS O2 SATURATION 87.8 % (70-80); VENOUS PCO2 43.4 mmHg (38-52); VENOUS PH 7.434 (7.310-7.410)
[2023-12-20 21:40] LABS: EPI CELLS 4 /uL (0-25.1); HYALINE CASTS 1 /uL (0-3.1); URINE APPEARANCE CLEAR; URINE BACTERIA 17 /uL (0-1359); URINE BILIRUBIN NEGATIVE (NEGATIVE); URINE COLOR YELLOW; URINE GLUCOSE (UA) NEGATIVE (NEGATIVE); URINE KETONE TRACE (NEGATIVE); URINE LEUK ESTERASE NEGATIVE (NEGATIVE); URINE NITRITE NEGATIVE (NEGATIVE); URINE PROTEIN TRACE (NEGATIVE); URINE RBC 251 /uL (0-23.9); URINE WBC 9 /uL (0-25.8)
[2023-12-20] MEDS: ACETAMINOPHEN 1000 MG/100 ML BAG IVPB ONE (21:40)
[2023-12-20] MEDS: ALBUTEROL SO4 2.5/IPRATROPIUM 0.5 INH SOL 3 ML VIAL.NEB. NEB SCH (21:41)
[2023-12-20] MEDS: SODIUM CHLORIDE 0.9% 500 ML INFUS.BAG IV ONE (21:41)
[2023-12-20 21:45] LABS: INR 1.17 (0.83-1.09); PROTHROMBIN TIME (PATIENT) 13.4 SEC (9.7-13.0)
[2023-12-20 21:48] LABS: ACTIVATED PTT 35.7 SECONDS (25.2-36.5)
[2023-12-20 22:04] LABS: POTASSIUM 3.7 mmol/L (3.5-5.1)
[2023-12-20 22:06] LABS: BLOOD UREA NITROGEN 10.8 mg/dL (7-18); CALCIUM 8.6 mg/dL (8.5-10.1)
[2023-12-20 22:07] LABS: ALBUMIN 3.3 g/dl (3.4-5.0)
[2023-12-20 22:10] LABS: CREATININE 0.7 mg/dL (0.55-1.3)
[2023-12-20 22:11] LABS: TOT PROT 6.6 g/dl (6.4-8.2)
[2023-12-20 22:15] LABS: ANISOCYTOSIS 2+; MACROCYTOSIS 0
[2023-12-20] MEDS ORDERED: CEFTRIAXONE 1 GM/50 ML BAG ONE (22:40)
[2023-12-20] MEDS ORDERED: AZITHROMYCIN IVPB 500 MG/250 ML BAG IVPB ONE (22:41)
[2023-12-20] MEDS: AZITHROMYCIN 500 MG TABLET PO ONE (23:04)
[2023-12-21] MEDS: VANCOMYCIN/WATER 1250 MG 1,250 MG/250 ML BAG IVPB SCH ×2 (06:53→17:44)
[2023-12-21 06:54] LABS: BASO % 0.3 % (0-2.0); HEMATOCRIT 39.7 % (35.4-49); HEMOGLOBIN 13.3 GM/dL (11.7-16.9); LYMPH % 4.1 % (8-40); MCH 31.1 pg (25.7-33.7); MCHC 33.5 g/dl (32.0-35.9); MEAN CELL VOLUME 92.7 fl (80-96); MEAN PLT VOLUME 8.2 fl (7.5-11.1); MONO % 7.8 % (3.8-10.2); NEUT % 87.8 % (42.8-82.8); PLATELET COUNT 181 10^3/uL (134-434); RBC 4.28 M/mm3 (4.00-5.60); WHITE BLOOD COUNT 17.5 K/mm3 (4.0-10.0)
[2023-12-21 07:20] LABS: POTASSIUM 3.7 mmol/L (3.5-5.1)
[2023-12-21 07:22] LABS: BLOOD UREA NITROGEN 10.2 mg/dL (7-18); CALCIUM 8.4 mg/dL (8.5-10.1)
[2023-12-21 07:26] LABS: CREATININE 0.6 mg/dL (0.55-1.3)
[2023-12-21] MEDS: PIPERACILLIN/TAZOB 4.5 GM 4.5 GM in DEXTROSE 5%-WATER 100 ML IVPB SCH ×2 (11:06→16:44)
[2023-12-21] MEDS: HEPARIN NA (PORCINE) 5,000 UNITS/ML 1ML VIAL SQ SCH (11:07)
[2023-12-21 12:26] LABS: PHENCYCLIDINE,URINE NEGATIVE (NEGATIVE); URINE AMPHETAMINES NEGATIVE (NEGATIVE); URINE BENZODIAZEPINES NEGATIVE (NEGATIVE)
[2023-12-21 12:27] LABS: COCAINE, UR POSITIVE (NEGATIVE); METHADONE, UR POSITIVE (NEGATIVE); OPIATES, URI POSITIVE (NEGATIVE); URINE BARBITURATES NEGATIVE (NEGATIVE)
[2023-12-21] MEDS ORDERED: ACETAMINOPHEN 1000 MG/100 ML BAG IVPB PRN (13:21)
[2023-12-21] MEDS ORDERED: ONDANSETRON 4 MG/2 ML VIAL IVPUSH PRN (13:21)
[2023-12-21] MEDS: DEXTROSE 5%-LACTATED RINGERS 1,000 ML IV SCH (14:27)
[2023-12-21] MEDS: cloNIDine HCL 0.1 MG TABLET PO SCH (14:28)
[2023-12-21] MEDS: GABAPENTIN 300 MG CAPSULE PO SCH (14:28)
[2023-12-21] MEDS ORDERED: cloNIDine HCL 0.1 MG TABLET PO PRN (14:41)
[2023-12-21] MEDS ORDERED: DICYCLOMINE HCL 10 MG CAPSULE PO PRN (14:45)
[2023-12-21] MEDS ORDERED: MAG HYDROX/AL HYDROX/SIMETH 30 ML UNIT-DOSE CUP PO PRN (14:45)
[2023-12-21] MEDS ORDERED: IBUPROFEN 600 MG TABLET (FP) PO PRN (14:45)
[2023-12-21] MEDS ORDERED: MAGNESIUM HYDROX 2400MG/30ML ORAL SUSPENSION 30 ML CUP PO PRN (14:45)
[2023-12-21] MEDS ORDERED: NALOXONE HCL 0.4 MG/ML VIAL IM PRN (14:45)
[2023-12-21] MEDS ORDERED: ONDANSETRON *ODT* 4 MG TABLET SL PRN (14:45)
[2023-12-21] MEDS ORDERED: LOPERAMIDE HCL 2 MG CAPSULE PO PRN (14:45)
[2023-12-21] MEDS ORDERED: BISMUTH SUBSALICYLATE 524 MG/30 ML PO PRN (14:45)
[2023-12-21] MEDS ORDERED: IBUPROFEN 400 MG TABLET (FP) PO PRN (14:45)
[2023-12-21] MEDS ORDERED: BENZONATATE 200 MG CAPSULE PO PRN (14:45)
[2023-12-21] MEDS ORDERED: guaiFENesin 600 MG TABLET.ER (FP) PO PRN (14:45)
[2023-12-21] MEDS ORDERED: METHOCARBAMOL 500 MG TABLET PO PRN (14:45)
[2023-12-21] MEDS ORDERED: POLYETHYLENE GLYCOL (HEALTHYLAX) 3350 17 GM PACKET PO PRN (15:07)
[2023-12-21] MEDS: chlordiazePOXIDE HCL 25 MG CAPSULE PO ONE (15:18)
[2023-12-21] MEDS: methaDONE HCL 10 MG TABLET PO ONE (15:21)
[2023-12-21 16:14] VITALS: BMI 23.8
[2023-12-21] MEDS: PRENATAL VITAMINS W/ FOLIC ACID TABLET (FP) PO SCH (16:43)
[2023-12-21] MEDS: MULTIVITAMINS (DAILY MVI) TABLET (FP) PO SCH (16:44)
[2023-12-21] MEDS: chlordiazePOXIDE HCL 25 MG CAPSULE PO SCH (17:45)
[2023-12-21] MEDS: ATORVASTATIN CA 40 MG TABLET (FP) PO SCH (21:12)
[2023-12-21] MEDS: BUDESONIDE/FORMETEROL FUMARATE 160/4.5 mcg INHALER IH SCH (21:13)
[2023-12-21] MEDS: THIAMINE 100 MG TABLET PO SCH (21:13)
[2023-12-21] MEDS ORDERED: MELATONIN 5 MG TABLETS PO SCH (22:00)
[2023-12-22] MEDS: chlordiazePOXIDE HCL 25 MG CAPSULE PO PRN (02:12)
[2023-12-22] MEDS: LORazepam 1 MG TABLET PO PRN (02:26)
[2023-12-22 09:52] LABS: BASO % 0.4 % (0-2.0); EOS % 1.2 % (0-4.5); HEMATOCRIT 40.2 % (35.4-49); HEMOGLOBIN 13.4 GM/dL (11.7-16.9); MCH 30.9 pg (25.7-33.7); MCHC 33.2 g/dl (32.0-35.9); MEAN PLT VOLUME 8.6 fl (7.5-11.1); MONO % 7.7 % (3.8-10.2); NEUT % 70.7 % (42.8-82.8); PLATELET COUNT 189 10^3/uL (134-434); RBC 4.33 M/mm3 (4.00-5.60); RDW 14.3 % (11.9-15.9)
[2023-12-22 10:19] LABS: CALCIUM 8.3 mg/dL (8.5-10.1)
[2023-12-22 10:20] LABS: BLOOD UREA NITROGEN 11.8 mg/dL (7-18)
[2023-12-22 10:21] LABS: ALBUMIN 2.4 g/dl (3.4-5.0)
[2023-12-22 10:23] LABS: CREATININE 0.7 mg/dL (0.55-1.3)
[2023-12-22 10:24] LABS: BILIRUBIN,TOTAL 0.3 mg/dL (0.2-1); TOT PROT 5.5 g/dl (6.4-8.2)
[2023-12-22] MEDS: ALBUTEROL SO4 2.5/IPRATROPIUM 0.5 INH SOL 3 ML VIAL.NEB. NEB PRN (15:53)
[2023-12-22] MEDS: hydrOXYzine PAMOATE 25 MG CAPSULE (FP) PO PRN (22:04)
[2023-12-23] MEDS: LORazepam 0.5 MG TABLET PO ONE ×2 (01:57→23:00)
[2023-12-23] MEDS: chlordiazePOXIDE HCL 25 MG CAPSULE PO SCH (05:25)
[2023-12-23] MEDS: methaDONE HCL 10 MG TABLET PO ONE ×2 (06:44→10:06)
[2023-12-23 08:43] LABS: BASO % 0.8 % (0-2.0); EOS % 1.6 % (0-4.5); HEMATOCRIT 39.6 % (35.4-49); HEMOGLOBIN 13.2 GM/dL (11.7-16.9); LYMPH % 32.2 % (8-40); MCH 31.2 pg (25.7-33.7); MCHC 33.3 g/dl (32.0-35.9); MEAN CELL VOLUME 93.7 fl (80-96); MEAN PLT VOLUME 8.8 fl (7.5-11.1); NEUT % 55.4 % (42.8-82.8); PLATELET COUNT 236 10^3/uL (134-434); RBC 4.22 M/mm3 (4.00-5.60); RDW 14.2 % (11.9-15.9); WHITE BLOOD COUNT 4.7 K/mm3 (4.0-10.0)
[2023-12-23 09:11] LABS: POTASSIUM 4.1 mmol/L (3.5-5.1)
[2023-12-23 09:15] LABS: CALCIUM 8.6 mg/dL (8.5-10.1)
[2023-12-23 09:16] LABS: BLOOD UREA NITROGEN 11.3 mg/dL (7-18)
[2023-12-23 09:19] LABS: CREATININE 0.6 mg/dL (0.55-1.3)
[2023-12-23 09:20] LABS: BILIRUBIN,TOTAL 0.4 mg/dL (0.2-1)
[2023-12-23 09:21] LABS: TOT PROT 6.4 g/dl (6.4-8.2)
[2023-12-23] MEDS: CASPOFUNGIN ACETATE 70 MG in SODIUM CHLORIDE 250 ML IVPB ONE (18:43)
[2023-12-24] MEDS: chlordiazePOXIDE HCL 10 MG CAPSULE PO SCH (05:50)
[2023-12-24 13:03] LABS: BASO % 0.9 % (0-2.0); EOS % 2.4 % (0-4.5); HEMOGLOBIN 12.9 GM/dL (11.7-16.9); LYMPH % 38.7 % (8-40); MCH 30.7 pg (25.7-33.7); MCHC 33.1 g/dl (32.0-35.9); MEAN CELL VOLUME 92.8 fl (80-96); MEAN PLT VOLUME 8.1 fl (7.5-11.1); MONO % 13.1 % (3.8-10.2); NEUT % 44.9 % (42.8-82.8); PLATELET COUNT 275 10^3/uL (134-434); RDW 14.7 % (11.9-15.9); WHITE BLOOD COUNT 4.3 K/mm3 (4.0-10.0)
[2023-12-24 13:23] LABS: POTASSIUM 4.3 mmol/L (3.5-5.1)
[2023-12-24 13:24] LABS: CALCIUM 8.9 mg/dL (8.5-10.1)
[2023-12-24 13:26] LABS: BLOOD UREA NITROGEN 12.3 mg/dL (7-18)
[2023-12-24 13:28] LABS: CREATININE 0.7 mg/dL (0.55-1.3)
[2023-12-24 13:30] LABS: BILIRUBIN,TOTAL 0.3 mg/dL (0.2-1); TOT PROT 6.3 g/dl (6.4-8.2)
[2023-12-24] MEDS: chlordiazePOXIDE HCL 10 MG CAPSULE PO PRN (20:20)
[2023-12-24] MEDS: LORazepam 0.5 MG TABLET PO ONE (23:13)
[2023-12-25] MEDS: chlordiazePOXIDE HCL 10 MG CAPSULE PO SCH (05:21)
[2023-12-25 07:35] LABS: BASO % 0.7 % (0-2.0); EOS % 1.3 % (0-4.5); HEMATOCRIT 36.4 % (35.4-49); LYMPH % 33.3 % (8-40); MCH 31.1 pg (25.7-33.7); MCHC 33.1 g/dl (32.0-35.9); MEAN PLT VOLUME 8.4 fl (7.5-11.1); MONO % 11.2 % (3.8-10.2); NEUT % 53.5 % (42.8-82.8); PLATELET COUNT 237 10^3/uL (134-434); RBC 3.87 M/mm3 (4.00-5.60); RDW 14.8 % (11.9-15.9); WHITE BLOOD COUNT 5.4 K/mm3 (4.0-10.0)
[2023-12-25] MEDS: methaDONE HCL 10 MG TABLET PO ONE ×2 (07:37→09:47)
[2023-12-25 07:56] LABS: BLOOD UREA NITROGEN 9.8 mg/dL (7-18); POTASSIUM 4.2 mmol/L (3.5-5.1)
[2023-12-25 07:58] LABS: ALBUMIN 2.9 g/dl (3.4-5.0); CALCIUM 8.6 mg/dL (8.5-10.1)
[2023-12-25 08:02] LABS: CREATININE 0.7 mg/dL (0.55-1.3)
[2023-12-25] MEDS: CASPOFUNGIN ACETATE 50 MG in SODIUM CHLORIDE 250 ML IVPB SCH (08:03)
[2023-12-25 08:04] LABS: TOT PROT 5.7 g/dl (6.4-8.2)
[2023-12-25 08:05] LABS: BILIRUBIN,TOTAL 0.3 mg/dL (0.2-1)
[2023-12-25] MEDS: ACETAMINOPHEN 325 MG TABLET (FP) PO PRN (09:20)
[2023-12-25] MEDS: NICOTINE 21 MG/24 HOURS TOPICAL PATCH TD SCH (11:07)
[2023-12-25] MEDS: chlordiazePOXIDE HCL 10 MG CAPSULE PO ONE (12:12)
[2023-12-25] MEDS ORDERED: ACETAMINOPHEN 325 MG TABLET (FP) PO PRN (15:09)
[2023-12-25] MEDS: LORazepam 0.5 MG TABLET PO ONE (21:32)
[2023-12-25] MEDS: BENZOCAINE/MENTHOL (CHLORASEPTIC ) LOZENGE MM PRN (22:30)
[2023-12-26] MEDS: chlordiazePOXIDE HCL 10 MG CAPSULE PO ONE (05:15)
[2023-12-26 06:24] LABS: BASO % 1.4 % (0-2.0); EOS % 0.5 % (0-4.5); HEMATOCRIT 33.8 % (35.4-49); HEMOGLOBIN 11.3 GM/dL (11.7-16.9); LYMPH % 18.2 % (8-40); MCH 31.4 pg (25.7-33.7); MCHC 33.5 g/dl (32.0-35.9); MEAN CELL VOLUME 93.9 fl (80-96); MEAN PLT VOLUME 7.8 fl (7.5-11.1); MONO % 8.5 % (3.8-10.2); NEUT % 71.4 % (42.8-82.8); PLATELET COUNT 276 10^3/uL (134-434); RDW 14.9 % (11.9-15.9); WHITE BLOOD COUNT 6.6 K/mm3 (4.0-10.0)
[2023-12-26 06:30] LABS: POTASSIUM 4.3 mmol/L (3.5-5.1)
[2023-12-26 06:33] LABS: BLOOD UREA NITROGEN 13.8 mg/dL (7-18); MAGNESIUM 1.8 mg/dL (1.8-2.4)
[2023-12-26 06:38] LABS: BILIRUBIN,TOTAL 0.2 mg/dL (0.2-1); TOT PROT 6.2 g/dl (6.4-8.2)
[2023-12-26 12:10] LABS: HIV INTERPRETATION NEGATIVE (NEGATIVE)
[2023-12-27] VITALS: RESP 18
[2023-12-27 07:01] VITALS: PULSE 77
[2023-12-27 09:12] VITALS: TEMP 97.7
[2023-12-27 10:44] LABS: BASO % 0.8 % (0-2.0); EOS % 1.6 % (0-4.5); HEMATOCRIT 36.8 % (35.4-49); HEMOGLOBIN 12.4 GM/dL (11.7-16.9); LYMPH % 34.1 % (8-40); MCH 31.6 pg (25.7-33.7); MCHC 33.7 g/dl (32.0-35.9); MEAN CELL VOLUME 93.9 fl (80-96); MONO % 9.2 % (3.8-10.2); NEUT % 54.3 % (42.8-82.8); PLATELET COUNT 303 10^3/uL (134-434); RBC 3.92 M/mm3 (4.00-5.60); RDW 14.7 % (11.9-15.9)
[2023-12-27 10:59] LABS: POTASSIUM 4.3 mmol/L (3.5-5.1)
[2023-12-27 11:15] LABS: ALBUMIN 3.3 g/dl (3.4-5.0); BLOOD UREA NITROGEN 11.1 mg/dL (7-18); CALCIUM 9.1 mg/dL (8.5-10.1)
[2023-12-27 11:16] LABS: MAGNESIUM 1.8 mg/dL (1.8-2.4)
[2023-12-27 11:18] LABS: CREATININE 0.9 mg/dL (0.55-1.3)
[2023-12-27 11:19] LABS: BILIRUBIN,TOTAL 0.4 mg/dL (0.2-1)
[2023-12-27 11:20] LABS: TOT PROT 6.1 g/dl (6.4-8.2)
[2023-12-27 13:21] VITALS: BP 116/75
== END 2023-12-27 18:37 | disposition home or self-care (01) | DRG 720 ==
LOC: JER 19:43 → JERBED 21:51 → UNDOADMOB 21:51 → INTOOBSV 21:51 → J7W 12-21 01:32 → JERBED 12-21 01:32 → J7W 12-21 14:27 → OBSVTOIN 12-23 15:57
PROVIDERS: ADMIT Internal Medicine; ATTEND Nurse Practitioner Family
PROC: HZ2ZZZZ Detoxification Services for Substance Abuse Treatment (ICD-10-PCS; principal; 2023-12-20)
DX: A41.89 Other specified sepsis (principal); J18.9 Pneumonia, unspecified organism; B49 Unspecified mycosis; G62.9 Polyneuropathy, unspecified; F10.230 Alcohol dependence with withdrawal, uncomplicated; F11.23 Opioid dependence with withdrawal; F17.200 Nicotine dependence, unspecified, uncomplicated; F19.980 Other psychoactive substance use, unspecified with psychoactive substance-induced anxiety disorder; F31.9 Bipolar disorder, unspecified; J44.9 Chronic obstructive pulmonary disease, unspecified; J45.909 Unspecified asthma, uncomplicated
CPT/HCPCS: 0241U-QW; 36415; 71045-TC-FY; 71046-TC-FY; 80048; 80053; 80307; 81003; 82140; 82803; 83605; 83735; 84484; 85025; 85610; 85730; 86705; 86803; 86850; 86900; 86901; 87040; 87070; 87086; 87106; 87205; 87340; 87389; 87517; 87899; 93005; 93010; 94640; 99285-25; G0378; J0131; J0637; J1644

== ENCOUNTER 2023-12-28 11:07 | Day surgery (SDC) | payer OTHER ==
[2023-12-28] MEDS ORDERED: REFRIGERATED ANITBIOTICS ONE (11:49)
[2023-12-28] MEDS: SODIUM CHLORIDE IVPB SCH (11:55)
[2023-12-28] MEDS: CASPOFUNGIN ACETATE IVPB SCH (11:55)
[2023-12-28 13:21] VITALS: BP 107/57; PULSE 75; RESP 18; TEMP 98.4
== END 2023-12-28 13:20 | disposition home or self-care (01) ==
LOC: FINFUSION 11:07 → FM/S 11:08 → FINFUSION 13:20
PROVIDERS: ATTEND Internal Medicine Infectious Disease
DX: A41.9 Sepsis, unspecified organism (principal); J18.9 Pneumonia, unspecified organism
CPT/HCPCS: 96365; 96366; J0637

== ENCOUNTER 2024-01-01 13:15 | Emergency (ER) | payer OTHER ==
[2024-01-01 14:01] VITALS: BMI 25.1
[2024-01-01] MEDS: CASPOFUNGIN ACETATE 50 MG in SODIUM CHLORIDE 250 ML IVPB ONE (18:09)
[2024-01-01 18:42] VITALS: BP 116/64; PULSE 78; RESP 18; TEMP 97.5
== END 2024-01-01 20:05 | disposition home or self-care (01) ==
LOC: JER 13:15
PROC: 3E033GC Introduction of Other Therapeutic Substance into Peripheral Vein, Percutaneous Approach (ICD-10-PCS; principal; 2024-01-01)
DX: F19.10 Other psychoactive substance abuse, uncomplicated (principal); Z76.0 Encounter for issue of repeat prescription
CPT/HCPCS: 99284-25; J0637

== ENCOUNTER 2024-01-04 11:50 | Inpatient (IN) | payer OTHER ==
[2024-01-04 14:15] LABS: BASO % 0.6 % (0-2.0); EOS % 1.3 % (0-4.5); HEMATOCRIT 38.9 % (35.4-49); HEMOGLOBIN 13.2 GM/dL (11.7-16.9); LYMPH % 34.9 % (8-40); MCH 31.2 pg (25.7-33.7); MCHC 33.8 g/dl (32.0-35.9); MEAN CELL VOLUME 92.3 fl (80-96); MEAN PLT VOLUME 7.5 fl (7.5-11.1); MONO % 10.5 % (3.8-10.2); NEUT % 52.7 % (42.8-82.8); PLATELET COUNT 315 10^3/uL (134-434); RBC 4.22 M/mm3 (4.00-5.60); RDW 15.5 % (11.9-15.9); WHITE BLOOD COUNT 4.1 K/mm3 (4.0-10.0)
[2024-01-04 14:32] LABS: POTASSIUM 4.6 mmol/L (3.5-5.1)
[2024-01-04 14:35] LABS: ALBUMIN 3.4 g/dl (3.4-5.0); BLOOD UREA NITROGEN 10.7 mg/dL (7-18)
[2024-01-04 14:37] LABS: CREATININE 0.6 mg/dL (0.55-1.3)
[2024-01-04 14:40] LABS: BILIRUBIN,TOTAL 0.5 mg/dL (0.2-1); TOT PROT 6.3 g/dl (6.4-8.2)
[2024-01-04 14:42] LABS: ANISOCYTOSIS 0; MACROCYTOSIS 0
[2024-01-04 22:03] LABS: METHADONE, UR NEGATIVE (NEGATIVE); URINE AMPHETAMINES NEGATIVE (NEGATIVE); URINE BARBITURATES NEGATIVE (NEGATIVE)
[2024-01-04 22:05] LABS: COCAINE, UR POSITIVE (NEGATIVE); OPIATES, URI POSITIVE (NEGATIVE); PHENCYCLIDINE,URINE NEGATIVE (NEGATIVE); URINE BENZODIAZEPINES NEGATIVE (NEGATIVE)
[2024-01-04] MEDS ORDERED: methaDONE HCL 10 MG TABLET ONE (23:14)
[2024-01-04] MEDS ORDERED: chlordiazePOXIDE HCL 25 MG CAPSULE ONE (23:14)
[2024-01-04] MEDS: chlordiazePOXIDE HCL 25 MG CAPSULE PO ONE (23:19)
[2024-01-04] MEDS: methaDONE HCL 40 MG DISPERSABLE TABLET PO ONE (23:20)
[2024-01-05 00:36] VITALS: BMI 24.5
[2024-01-05] MEDS ORDERED: chlordiazePOXIDE HCL 25 MG CAPSULE PO PRN (07:23)
[2024-01-05] MEDS ORDERED: ACETAMINOPHEN 325 MG TABLET (FP) PO PRN ×2 (07:26→11:35)
[2024-01-05 09:42] LABS: BASO % 1.4 % (0-2.0); EOS % 2.5 % (0-4.5); HEMATOCRIT 39.1 % (35.4-49); HEMOGLOBIN 13.3 GM/dL (11.7-16.9); LYMPH % 55.4 % (8-40); MCH 31.5 pg (25.7-33.7); MEAN CELL VOLUME 92.6 fl (80-96); MEAN PLT VOLUME 7.6 fl (7.5-11.1); MONO % 11.6 % (3.8-10.2); NEUT % 29.1 % (42.8-82.8); PLATELET COUNT 291 10^3/uL (134-434); RBC 4.23 M/mm3 (4.00-5.60); RDW 15.5 % (11.9-15.9); WHITE BLOOD COUNT 2.7 K/mm3 (4.0-10.0)
[2024-01-05] MEDS ORDERED: methaDONE HCL 10 MG TABLET (FOR DETOX USE ONLY) PO SCH (10:00)
[2024-01-05 10:15] LABS: POTASSIUM 3.9 mmol/L (3.5-5.1)
[2024-01-05 10:19] LABS: CALCIUM 8.9 mg/dL (8.5-10.1)
[2024-01-05 10:21] LABS: BLOOD UREA NITROGEN 8.2 mg/dL (7-18)
[2024-01-05] MEDS ORDERED: METHOCARBAMOL 500 MG TABLET PO PRN (10:21)
[2024-01-05] MEDS ORDERED: DICYCLOMINE HCL 10 MG CAPSULE PO PRN ×2 (10:23→11:09)
[2024-01-05 10:24] LABS: CREATININE 0.8 mg/dL (0.55-1.3)
[2024-01-05] MEDS: methaDONE HCL 10 MG TABLET PO ONE ×2 (11:01→16:06)
[2024-01-05] MEDS: THIAMINE 100 MG TABLET PO SCH (11:03)
[2024-01-05] MEDS: MULTIVITAMINS (DAILY MVI) TABLET (FP) PO SCH (11:03)
[2024-01-05] MEDS ORDERED: ONDANSETRON *ODT* 4 MG TABLET SL PRN (11:35)
[2024-01-05] MEDS ORDERED: BENZONATATE 200 MG CAPSULE PO PRN (11:35)
[2024-01-05] MEDS ORDERED: hydrOXYzine PAMOATE 25 MG CAPSULE (FP) PO PRN (11:35)
[2024-01-05] MEDS ORDERED: guaiFENesin 600 MG TABLET.ER (FP) PO PRN (11:35)
[2024-01-05] MEDS ORDERED: BENZOCAINE/MENTHOL (CHLORASEPTIC ) LOZENGE MM PRN (11:35)
[2024-01-05] MEDS ORDERED: MAG HYDROX/AL HYDROX/SIMETH 30 ML UNIT-DOSE CUP PO PRN (11:35)
[2024-01-05] MEDS ORDERED: BISMUTH SUBSALICYLATE 524 MG/30 ML PO PRN (11:35)
[2024-01-05] MEDS ORDERED: IBUPROFEN 400 MG TABLET (FP) PO PRN (11:35)
[2024-01-05] MEDS ORDERED: NALOXONE HCL 0.4 MG/ML VIAL IM PRN (11:35)
[2024-01-05] MEDS ORDERED: MAGNESIUM HYDROX 2400MG/30ML ORAL SUSPENSION 30 ML CUP PO PRN (11:35)
[2024-01-05] MEDS ORDERED: IBUPROFEN 600 MG TABLET (FP) PO PRN (11:35)
[2024-01-05] MEDS ORDERED: LOPERAMIDE HCL 2 MG CAPSULE PO PRN (11:35)
[2024-01-05] MEDS ORDERED: NICOTINE POLACRILEX 4 MG LOZENGE BC PRN (11:36)
[2024-01-05] MEDS ORDERED: NICOTINE POLACRILEX 4 MG GUM BUC PRN (11:36)
[2024-01-05] MEDS: chlordiazePOXIDE HCL 25 MG CAPSULE PO SCH (13:00)
[2024-01-05] MEDS: ENOXAPARIN NA (PORCINE) 40 MG/0.4 ML DISP.SYRIN SQ SCH (13:02)
[2024-01-05] MEDS: POLYETHYLENE GLYCOL (HEALTHYLAX) 3350 17 GM PACKET PO SCH (13:02)
[2024-01-05] MEDS: NICOTINE 14 MG/24 HOURS TOPICAL PATCH TD SCH (13:02)
[2024-01-05] MEDS: LACTATED RINGERS SOLUTION 1,000 ML/1,000 ML INFUS.BAG IV SCH (13:07)
[2024-01-05] MEDS: PRENATAL VITAMINS W/ FOLIC ACID TABLET (FP) PO SCH (13:08)
[2024-01-05] MEDS: CASPOFUNGIN ACETATE 70 MG in SODIUM CHLORIDE 250 ML IVPB ONE (18:58)
[2024-01-05] MEDS: methaDONE HCL 10 MG TABLET (FOR DETOX USE ONLY) PO ONE (19:30)
[2024-01-05] MEDS: methaDONE HCL 10 MG TABLET PO SCH (19:30)
[2024-01-05] MEDS: chlordiazePOXIDE HCL 25 MG CAPSULE PO PRN (20:29)
[2024-01-05] MEDS: GABAPENTIN 300 MG CAPSULE PO SCH (21:57)
[2024-01-05] MEDS: cloNIDine HCL 0.1 MG TABLET PO PRN (21:59)
[2024-01-05] MEDS ORDERED: MELATONIN 5 MG TABLETS PO SCH (22:00)
[2024-01-05 23:21] VITALS: RESP 20
[2024-01-06] MEDS: SENNOSIDES 8.8 MG/5 ML SYRUP PO SCH (00:03)
[2024-01-06 09:50] VITALS: BP 116/75; PULSE 65; TEMP 98
[2024-01-06] MEDS: CASPOFUNGIN ACETATE 50 MG in SODIUM CHLORIDE 250 ML IVPB SCH (10:55)
[2024-01-07] MEDS ORDERED: chlordiazePOXIDE HCL 25 MG CAPSULE PO SCH (05:00)
[2024-01-07] MEDS ORDERED: methaDONE HCL 10 MG TABLET PO ONE (10:00)
[2024-01-08] MEDS ORDERED: chlordiazePOXIDE HCL 10 MG CAPSULE PO PRN
[2024-01-08] MEDS ORDERED: chlordiazePOXIDE HCL 10 MG CAPSULE PO SCH (05:00)
[2024-01-09] MEDS ORDERED: chlordiazePOXIDE HCL 10 MG CAPSULE PO SCH (05:00)
[2024-01-09] MEDS ORDERED: methaDONE HCL 10 MG TABLET PO ONE (10:00)
[2024-01-10] MEDS ORDERED: chlordiazePOXIDE HCL 10 MG CAPSULE PO ONE (05:00)
== END 2024-01-06 13:05 | disposition left against medical advice (07) | DRG 724 ==
LOC: JER 11:50 → JERBED 19:42 → J8W 01-05 00:23
PROVIDERS: ADMIT Internal Medicine; ATTEND Nurse Practitioner Acute Care
DX: B49 Unspecified mycosis (principal); J44.9 Chronic obstructive pulmonary disease, unspecified; F10.230 Alcohol dependence with withdrawal, uncomplicated; F11.23 Opioid dependence with withdrawal; F14.20 Cocaine dependence, uncomplicated; F32.A Depression, unspecified; E78.5 Hyperlipidemia, unspecified; F17.200 Nicotine dependence, unspecified, uncomplicated; E86.0 Dehydration; G47.00 Insomnia, unspecified; F90.9 Attention-deficit hyperactivity disorder, unspecified type; J45.909 Unspecified asthma, uncomplicated
CPT/HCPCS: 0241U-QW; 36415; 71046-TC-FY; 80048; 80053; 80307; 85025; 87040; 93005; 93010; 99284-25; 99285-25; J0637

== ENCOUNTER 2024-02-01 05:18 | Inpatient (IN) | payer OTHER ==
[2024-02-01 05:28] VITALS: BMI 25.1
[2024-02-01] MEDS: LACTATED RINGERS SOLUTION 1000 ML INFUS.BAG IV ONE (06:35)
[2024-02-01] MEDS: ACETAMINOPHEN 1000 MG/100 ML BAG IVPB ONE (06:36)
[2024-02-01] MEDS: FAMOTIDINE 20 MG/50 ML IVPB 20 MG/50 ML MG IVPB ONE (06:36)
[2024-02-01 06:44] LABS: BASO % 1.6 % (0-2.0); EOS % 2.2 % (0-4.5); LYMPH % 31.3 % (8-40); MCH 31.5 pg (25.7-33.7); MCHC 33.3 g/dl (32.0-35.9); MEAN CELL VOLUME 94.6 fl (80-96); MEAN PLT VOLUME 8.1 fl (7.5-11.1); NEUT % 54.9 % (42.8-82.8); PLATELET COUNT 195 10^3/uL (134-434); RBC 4.44 M/mm3 (4.00-5.60); WHITE BLOOD COUNT 3.8 K/mm3 (4.0-10.0)
[2024-02-01 07:02] LABS: POTASSIUM 4.2 mmol/L (3.5-5.1)
[2024-02-01 07:04] LABS: ALBUMIN 3.7 g/dl (3.4-5.0); CALCIUM 8.9 mg/dL (8.5-10.1)
[2024-02-01 07:05] LABS: BLOOD UREA NITROGEN 18.3 mg/dL (7-18)
[2024-02-01 07:08] LABS: CREATININE 0.8 mg/dL (0.55-1.3)
[2024-02-01 07:09] LABS: BILIRUBIN,TOTAL 0.3 mg/dL (0.2-1); TOT PROT 6.4 g/dl (6.4-8.2)
[2024-02-01] MEDS ORDERED: methaDONE HCL 10 MG TABLET ONE ×2 (08:19→09:26)
[2024-02-01] MEDS ORDERED: diazePAM CARPU-JECT 10 MG/2 ML DISP.SYRIN ONE (09:06)
[2024-02-01] MEDS: diazePAM CARPU-JECT 10 MG/2 ML DISP.SYRIN IVPUSH ONE (09:16)
[2024-02-01] MEDS: methaDONE HCL 40 MG DISPERSABLE TABLET PO ONE (09:30)
[2024-02-01 11:19] LABS: URINE APPEARANCE CLEAR; URINE BILIRUBIN NEGATIVE (NEGATIVE); URINE COLOR YELLOW; URINE GLUCOSE (UA) NEGATIVE (NEGATIVE); URINE KETONE NEGATIVE (NEGATIVE); URINE LEUK ESTERASE NEGATIVE (NEGATIVE); URINE NITRITE NEGATIVE (NEGATIVE); URINE PROTEIN NEGATIVE (NEGATIVE)
[2024-02-01 11:29] LABS: METHADONE, UR NEGATIVE (NEGATIVE); URINE AMPHETAMINES NEGATIVE (NEGATIVE); URINE BARBITURATES NEGATIVE (NEGATIVE); URINE BENZODIAZEPINES NEGATIVE (NEGATIVE)
[2024-02-01 11:30] LABS: PHENCYCLIDINE,URINE NEGATIVE (NEGATIVE)
[2024-02-01 11:34] LABS: COCAINE, UR POSITIVE (NEGATIVE); OPIATES, URI POSITIVE (NEGATIVE)
[2024-02-01] MEDS ORDERED: ALBUTEROL SO4 HFA INHALER IH PRN (12:03)
[2024-02-01] MEDS ORDERED: ACETAMINOPHEN 325 MG TABLET (FP) PO PRN (12:06)
[2024-02-01] MEDS: cloNIDine HCL 0.1 MG TABLET PO PRN (14:18)
[2024-02-01] MEDS: GABAPENTIN 300 MG CAPSULE PO SCH (14:18)
[2024-02-01] MEDS: LORazepam 2 MG/ML SDV VIAL IVPUSH PRN (21:46)
[2024-02-01] MEDS: HEPARIN NA (PORCINE) 5,000 UNITS/ML 1ML VIAL SQ SCH (22:00)
[2024-02-01] MEDS: ATORVASTATIN CA 40 MG TABLET (FP) PO SCH (22:00)
[2024-02-02] MEDS: BUDESONIDE/FORMETEROL FUMARATE 160/4.5 mcg INHALER IH SCH (05:58)
[2024-02-02] MEDS: methaDONE HCL 10 MG TABLET PO ONE (06:13)
[2024-02-02] MEDS: chlordiazePOXIDE HCL 25 MG CAPSULE PO SCH (10:59)
[2024-02-02 14:44] VITALS: BP 106/71; PULSE 73; RESP 20; TEMP 99.8
== END 2024-02-02 16:45 | disposition left against medical advice (07) | DRG 770 ==
LOC: JER 05:18 → JERBED 10:03 → J7W 11:29 → OBSVTOIN 12:06
PROVIDERS: ADMIT Internal Medicine; ATTEND Internal Medicine
DX: F10.230 Alcohol dependence with withdrawal, uncomplicated (principal); B49 Unspecified mycosis; J44.9 Chronic obstructive pulmonary disease, unspecified; F11.23 Opioid dependence with withdrawal; F14.10 Cocaine abuse, uncomplicated; F19.10 Other psychoactive substance abuse, uncomplicated; E78.5 Hyperlipidemia, unspecified; F31.9 Bipolar disorder, unspecified; F12.20 Cannabis dependence, uncomplicated; F10.20 Alcohol dependence, uncomplicated
CPT/HCPCS: 0241U-QW; 36415; 71045-TC-FY; 80053; 80307; 81003; 85025; 87040; 87086; 93005; 93010; 99285-25; G0378; J0131; J1644

== ENCOUNTER 2024-04-01 20:41 | Observation (INO) | payer OTHER ==
[2024-04-01 22:47] LABS: BASO % 0.5 % (0-2.0); EOS % 1.4 % (0-4.5); HEMATOCRIT 46.3 % (35.4-49); HEMOGLOBIN 15.4 GM/dL (11.7-16.9); LYMPH % 50.7 % (8-40); MCH 31.7 pg (25.7-33.7); MCHC 33.4 g/dl (32.0-35.9); MEAN CELL VOLUME 95.1 fl (80-96); MEAN PLT VOLUME 7.9 fl (7.5-11.1); MONO % 7.6 % (3.8-10.2); NEUT % 39.8 % (42.8-82.8); PLATELET COUNT 184 10^3/uL (134-434); RBC 4.87 M/mm3 (4.00-5.60); RDW 14.1 % (11.9-15.9); WHITE BLOOD COUNT 4.2 K/mm3 (4.0-10.0)
[2024-04-01 22:50] LABS: EPI CELLS 19 /uL (0-25.1); HYALINE CASTS 7 /uL (0-3.1); PH,URINE 5.5 (5.0-8.0); URINE APPEARANCE CLEAR; URINE BACTERIA 33 /uL (0-1359); URINE BILIRUBIN 1+ (NEGATIVE); URINE COLOR DK YELLOW; URINE GLUCOSE (UA) NEGATIVE (NEGATIVE); URINE KETONE TRACE (NEGATIVE); URINE LEUK ESTERASE 1+ (NEGATIVE); URINE NITRITE NEGATIVE (NEGATIVE); URINE PROTEIN 1+ (NEGATIVE); URINE RBC 2 /uL (0-23.9); URINE WBC 117 /uL (0-25.8)
[2024-04-01 23:05] LABS: POTASSIUM 3.8 mmol/L (3.5-5.1)
[2024-04-01 23:07] LABS: CALCIUM 8.8 mg/dL (8.5-10.1)
[2024-04-01 23:10] LABS: CREATININE 1.1 mg/dL (0.55-1.3)
[2024-04-01 23:12] LABS: BILIRUBIN,TOTAL 0.5 mg/dL (0.2-1); TOT PROT 6.7 g/dl (6.4-8.2)
[2024-04-02] MEDS ORDERED: CEFTRIAXONE 1 GM/50 ML BAG ONE (00:35)
[2024-04-02] MEDS ORDERED: IBUPROFEN 600 MG TABLET (FP) PO PRN (02:42)
[2024-04-02] MEDS ORDERED: ACETAMINOPHEN 325 MG TABLET (FP) PO PRN (02:42)
[2024-04-02] MEDS ORDERED: BENZOCAINE/MENTHOL (CHLORASEPTIC ) LOZENGE MM PRN (02:42)
[2024-04-02] MEDS ORDERED: IBUPROFEN 400 MG TABLET (FP) PO PRN (02:42)
[2024-04-02] MEDS ORDERED: ONDANSETRON *ODT* 4 MG TABLET SL PRN (02:42)
[2024-04-02] MEDS ORDERED: LOPERAMIDE HCL 2 MG CAPSULE PO PRN (02:42)
[2024-04-02] MEDS ORDERED: MAG HYDROX/AL HYDROX/SIMETH 30 ML UNIT-DOSE CUP PO PRN (02:42)
[2024-04-02] MEDS ORDERED: NALOXONE (NYS OPIOID OVERDOSE PROGRAM) 4 MG/0.1 ML SPRAY NS PRN ×2 (02:42→05:27)
[2024-04-02] MEDS ORDERED: DICYCLOMINE HCL 10 MG CAPSULE PO PRN (02:42)
[2024-04-02] MEDS ORDERED: POLYETHYLENE GLYCOL (HEALTHYLAX) 3350 17 GM PACKET PO PRN (02:42)
[2024-04-02] MEDS ORDERED: BENZONATATE 200 MG CAPSULE PO PRN (02:42)
[2024-04-02] MEDS ORDERED: BISMUTH SUBSALICYLATE 524 MG/30 ML PO PRN (02:42)
[2024-04-02] MEDS ORDERED: MAGNESIUM HYDROX 2400MG/30ML ORAL SUSPENSION 30 ML CUP PO PRN (02:42)
[2024-04-02] MEDS ORDERED: methaDONE HCL 10 MG TABLET ONE ×2 (03:14→12:46)
[2024-04-02] MEDS: methaDONE HCL 10 MG TABLET PO ONE (03:20)
[2024-04-02] MEDS ORDERED: FOLIC ACID INJECTION - 1 MG, THIAMINE HCL 100 MG, MULTIVIT INJECTION ADULT 10 ML in SOD... IVPB ONE (04:41)
[2024-04-02 08:22] LABS: HEMATOCRIT 44.9 % (35.4-49); HEMOGLOBIN 15.2 GM/dL (11.7-16.9); MCHC 33.7 g/dl (32.0-35.9); PLATELET COUNT 177 10^3/uL (134-434); RBC 4.73 M/mm3 (4.00-5.60); RDW 13.9 % (11.9-15.9); WHITE BLOOD COUNT 3.7 K/mm3 (4.0-10.0)
[2024-04-02 08:54] LABS: CHLORIDE 105 mmol/L (98-107); POTASSIUM 3.5 mmol/L (3.5-5.1); SODIUM 140 mmol/L (136-145)
[2024-04-02 08:58] LABS: ALBUMIN 3.8 g/dl (3.4-5.0); BLOOD UREA NITROGEN 19.5 mg/dL (7-18)
[2024-04-02 08:59] LABS: GLUCOSE,RANDOM 118 mg/dL (74-106)
[2024-04-02 09:00] LABS: ANION GAP 4 mmol/L (4-13); CO2 31 mmol/L (21-32)
[2024-04-02 09:01] LABS: CREATININE 0.8 mg/dL (0.55-1.3); SGOT/AST 16 U/L (15-37); SGPT/ALT 18 U/L (13-61)
[2024-04-02 09:02] LABS: PHOSPHOROUS 3.5 mg/dL (2.5-4.9)
[2024-04-02 09:03] LABS: BILIRUBIN,TOTAL 0.6 mg/dL (0.2-1); TOT PROT 6.5 g/dl (6.4-8.2)
[2024-04-02 09:04] LABS: ALK PHOS 82 U/L (45-117)
[2024-04-02] MEDS: ENOXAPARIN NA (PORCINE) 40 MG/0.4 ML DISP.SYRIN SQ SCH (10:56)
[2024-04-02] MEDS: guaiFENesin 600 MG TABLET.ER (FP) PO PRN (10:57)
[2024-04-02] MEDS: FOLIC ACID 1 MG TABLET (FP) PO SCH (10:57)
[2024-04-02] MEDS: THIAMINE 100 MG TABLET PO SCH (10:57)
[2024-04-02] MEDS: NICOTINE 14 MG/24 HOURS TOPICAL PATCH TD SCH (10:57)
[2024-04-02] MEDS ORDERED: cefTRIAXone SODIUM 1 GM VIAL ONE (11:00)
[2024-04-02] MEDS ORDERED: hydrOXYzine PAMOATE 25 MG CAPSULE (FP) PO ONE (12:08)
[2024-04-02] MEDS: CEFTRIAXONE 1 G/50 ML PREMIX 50 ML IVPB SCH (13:07)
[2024-04-02 15:34] VITALS: BMI 23.8
[2024-04-02] MEDS: chlordiazePOXIDE HCL 10 MG CAPSULE PO SCH (17:46)
[2024-04-02] MEDS: chlordiazePOXIDE HCL 10 MG CAPSULE PO ONE (20:48)
[2024-04-02] MEDS: LORazepam 2 MG/ML SDV VIAL IVPUSH PRN (21:15)
[2024-04-02 22:58] VITALS: RESP 18
[2024-04-03 09:21] LABS: HEMATOCRIT 44.2 % (35.4-49); HEMOGLOBIN 15.1 GM/dL (11.7-16.9); MCH 32.4 pg (25.7-33.7); MCHC 34.2 g/dl (32.0-35.9); MEAN CELL VOLUME 94.7 fl (80-96); MEAN PLT VOLUME 8.2 fl (7.5-11.1); PLATELET COUNT 166 10^3/uL (134-434); RBC 4.67 M/mm3 (4.00-5.60); RDW 13.8 % (11.9-15.9); WHITE BLOOD COUNT 3.3 K/mm3 (4.0-10.0)
[2024-04-03 09:45] LABS: POTASSIUM 4.4 mmol/L (3.5-5.1)
[2024-04-03 09:51] LABS: CALCIUM 8.9 mg/dL (8.5-10.1)
[2024-04-03 09:54] LABS: CREATININE 0.8 mg/dL (0.55-1.3)
[2024-04-03 09:57] LABS: ANISOCYTOSIS 0; HELMET CELLS 0; HOWELL-JOLLY BODIES 0; MACROCYTOSIS 0; OVALOCYTE 0; ROULEAU 0; SICKELED CELLS 0; TARGET CELLS 0; TEAR DROP CELLS 0; TOXIC GRANULATION 0
[2024-04-03] MEDS ORDERED: THIAMINE 100 MG TABLET PO SCH (10:00)
[2024-04-03] MEDS ORDERED: FOLIC ACID 1 MG TABLET (FP) PO SCH (10:00)
[2024-04-03 10:01] LABS: BLOOD UREA NITROGEN 19.7 mg/dL (7-18)
[2024-04-03] MEDS: hydrOXYzine PAMOATE 25 MG CAPSULE (FP) PO PRN (10:02)
[2024-04-03] MEDS: LORazepam 1 MG TABLET PO PRN (14:54)
[2024-04-04] MEDS: cloNIDine HCL 0.1 MG TABLET PO PRN (00:55)
[2024-04-04 07:29] LABS: HEMATOCRIT 44.4 % (35.4-49); HEMOGLOBIN 14.7 GM/dL (11.7-16.9); MCH 31.7 pg (25.7-33.7); MCHC 33.1 g/dl (32.0-35.9); MEAN CELL VOLUME 95.7 fl (80-96); MEAN PLT VOLUME 7.9 fl (7.5-11.1); PLATELET COUNT 155 10^3/uL (134-434); RBC 4.64 M/mm3 (4.00-5.60); RDW 13.7 % (11.9-15.9); WHITE BLOOD COUNT 3.2 K/mm3 (4.0-10.0)
[2024-04-04 07:48] LABS: CALCIUM 8.8 mg/dL (8.5-10.1); POTASSIUM 4.1 mmol/L (3.5-5.1)
[2024-04-04 07:50] LABS: BLOOD UREA NITROGEN 19.1 mg/dL (7-18); MAGNESIUM 1.7 mg/dL (1.8-2.4)
[2024-04-04 07:52] LABS: CREATININE 0.8 mg/dL (0.55-1.3); PHOSPHOROUS 3.9 mg/dL (2.5-4.9)
[2024-04-04] MEDS: methaDONE HCL 10 MG TABLET PO ONE (09:21)
[2024-04-04] MEDS: METHOCARBAMOL 500 MG TABLET PO PRN (13:39)
[2024-04-04] MEDS: chlordiazePOXIDE 5 MG CAPSULE PO ONE (15:03)
[2024-04-04] MEDS: chlordiazePOXIDE HCL 10 MG CAPSULE PO ONE ×3 (18:20→22:38)
[2024-04-05 08:57] LABS: HEMATOCRIT 42.3 % (35.4-49); HEMOGLOBIN 13.9 GM/dL (11.7-16.9); MCH 31.4 pg (25.7-33.7); MCHC 32.8 g/dl (32.0-35.9); MEAN CELL VOLUME 95.7 fl (80-96); MEAN PLT VOLUME 8.4 fl (7.5-11.1); PLATELET COUNT 141 10^3/uL (134-434); RBC 4.42 M/mm3 (4.00-5.60); RDW 13.3 % (11.9-15.9); WHITE BLOOD COUNT 2.6 K/mm3 (4.0-10.0)
[2024-04-05] MEDS ORDERED: chlordiazePOXIDE 5 MG CAPSULE ONE (09:05)
[2024-04-05 09:15] LABS: POTASSIUM 3.8 mmol/L (3.5-5.1)
[2024-04-05 09:23] LABS: ALBUMIN 3.5 g/dl (3.4-5.0); BLOOD UREA NITROGEN 13.8 mg/dL (7-18); CALCIUM 8.8 mg/dL (8.5-10.1); MAGNESIUM 1.8 mg/dL (1.8-2.4)
[2024-04-05] MEDS: chlordiazePOXIDE HCL 10 MG CAPSULE PO SCH (09:24)
[2024-04-05 09:25] LABS: CREATININE 0.7 mg/dL (0.55-1.3)
[2024-04-05 09:28] LABS: BILIRUBIN,TOTAL 0.4 mg/dL (0.2-1); TOT PROT 5.9 g/dl (6.4-8.2)
[2024-04-05] MEDS: methaDONE HCL 10 MG TABLET PO ONE (11:44)
[2024-04-05] MEDS: METHOCARBAMOL 500 MG TABLET PO ONE (11:46)
[2024-04-05] MEDS ORDERED: LORazepam 2 MG/ML SDV VIAL IVPUSH PRN (12:32)
[2024-04-05 12:39] LABS: TARGET CELLS 1+
[2024-04-05] MEDS: LORazepam 1 MG TABLET PO PRN (13:06)
[2024-04-05] MEDS: ALBUTEROL SO4 0.083% IH SOL 2.5 MG/3 ML VIAL.NEB. NEB PRN (13:13)
[2024-04-06 09:58] LABS: BASO % 0.8 % (0-2.0); EOS % 2.6 % (0-4.5); HEMATOCRIT 40.9 % (35.4-49); HEMOGLOBIN 14.1 GM/dL (11.7-16.9); LYMPH % 50.7 % (8-40); MCH 32.4 pg (25.7-33.7); MCHC 34.6 g/dl (32.0-35.9); MEAN CELL VOLUME 93.8 fl (80-96); MEAN PLT VOLUME 8.4 fl (7.5-11.1); MONO % 15.9 % (3.8-10.2); PLATELET COUNT 139 10^3/uL (134-434); RBC 4.36 M/mm3 (4.00-5.60); WHITE BLOOD COUNT 3.2 K/mm3 (4.0-10.0)
[2024-04-06] MEDS ORDERED: methaDONE HCL 10 MG TABLET PO ONE (10:00)
[2024-04-06 10:11] LABS: POTASSIUM 4.2 mmol/L (3.5-5.1)
[2024-04-06 10:13] LABS: BLOOD UREA NITROGEN 11.5 mg/dL (7-18)
[2024-04-06 10:16] LABS: CREATININE 0.8 mg/dL (0.55-1.3)
[2024-04-06] MEDS: methaDONE HCL 10 MG TABLET PO ONE (10:51)
[2024-04-06 11:19] VITALS: BP 130/67; PULSE 70; TEMP 97.9
== END 2024-04-06 11:30 | disposition home or self-care (01) ==
LOC: JER 20:41 → JERBED 23:59 → J7W 04-02 15:05
PROVIDERS: ADMIT Internal Medicine; ATTEND Internal Medicine
PROC: 3E0F7GC Introduction of Other Therapeutic Substance into Respiratory Tract, Via Natural or Artificial Opening (ICD-10-PCS; principal; 2024-04-01)
PROC: 3E03329 Introduction of Other Anti-infective into Peripheral Vein, Percutaneous Approach (ICD-10-PCS; 2024-04-01)
DX: N39.0 Urinary tract infection, site not specified (principal); F19.90 Other psychoactive substance use, unspecified, uncomplicated; J44.9 Chronic obstructive pulmonary disease, unspecified; A41.9 Sepsis, unspecified organism; F17.210 Nicotine dependence, cigarettes, uncomplicated
CPT/HCPCS: 0241U-QW; 36415; 70450-TC; 71046-TC-FY; 80048; 80053; 81003; 83605; 83735; 84100; 84439; 84443; 84484; 85025; 85027; 86140; 87040; 87086; 93005; 93010; 94640; 96374; 96375; 96376; 99285-25; G0378

== ENCOUNTER 2024-04-06 18:54 | Emergency (ER) | payer OTHER ==
[2024-04-06 19:47] VITALS: BP 113/73; PULSE 82; RESP 20; TEMP 97.3; BMI 28.1
[2024-04-06] MEDS ORDERED: chlordiazePOXIDE HCL 10 MG CAPSULE ONE (21:21)
[2024-04-06] MEDS ORDERED: chlordiazePOXIDE 5 MG CAPSULE ONE (21:22)
[2024-04-06] MEDS: chlordiazePOXIDE HCL 10 MG CAPSULE PO ONE (22:47)
== END 2024-04-06 22:46 | disposition home or self-care (01) ==
LOC: JER 18:54
DX: F41.9 Anxiety disorder, unspecified (principal); R55 Syncope and collapse
CPT/HCPCS: 93005; 93010; 99284-25